=== PATIENT | female | born 1945 ===

== ENCOUNTER 2018-06-22 17:16 | Inpatient (IN) | payer MEDICARE, MEDICAID ==
[2018-06-22 17:16] VITALS: BMI 25.9
[2018-06-22] MEDS ORDERED: Piperacillin/Tazobact 3.375 gm 100 ML IVPB STA (18:38)
--- NOTE | 2018-06-22 18:42 | C.PDOC ---
History Of Present Illness 73 y/o female, with PMHx of diabetes, peripheral vascular disease, diabetic foot ulcer, and stroke, sent in by manager drilling for admission. Patient complains of wound on right heel and foot. Denies fever, chest pain, SOB, abdominal pain, weakness, numbness, or other physical injuries. Patient is from [facility]. Time Seen by Provider: 06/22/18 17:55 Chief Complaint (Nursing): Lower Extremity Problem/Injury History Per: Patient History/Exam Limitations: no limitations Onset/Duration Of Symptoms: Days Current Symptoms Are (Timing): Still Present Past Medical History Reviewed: Historical Data, Nursing Documentation, Vital Signs Vital Signs: Last Vital Signs Temp 98.5 F 06/22/18 17:19 Pulse 70 06/22/18 17:19 Resp 16 06/22/18 17:19 BP 156/67 H 06/22/18 17:19 Pulse Ox - Medical History PMH: Dementia, Diabetes, HTN, Hypercholesterolemia, Hyperlipidemia, Pneumonia Denies: Deep Vein Thrombosis, Chronic Kidney Disease Surgical History: Denies: Pacemaker - [facility] Procedures CENTRAL VENOUS CATHETER PLACEMENT WITH GUIDANCE (10/22/13) CONTRAST ARTERIOGRAM-LEG (10/22/13) DRAINAGE OF LEFT FOOT SKIN, EXTERNAL APPROACH, DIAGNOSTIC (10/17/17) DRESSING TECHNIQUES TREATMENT (10/19/17) GROOMING/PERSONAL HYGIENE TREATMENT (10/19/17) INSERTION OF INFUSION DEV INTO SUP VENA CAVA, PERC APPROACH (07/05/16) INSERTION OF INFUSION DEVICE INTO UPPER VEIN, PERC APPROACH (10/19/17) PACKED CELL TRANSFUSION (10/22/13) THERAPEUTIC EXERCISE TREATMENT OF MUSCULOSK WHOLE (10/19/17) ULTRASONOGRAPHY OF LEFT UPPER EXTREMITY VEINS, GUIDANCE (10/19/17) ULTRASONOGRAPHY OF SUPERIOR VENA CAVA, GUIDANCE (07/05/16) VASC SHUNT & BYPASS NEC (10/22/13) Family History: States: No Known Family Hx - Social History Hx Tobacco Use: No Hx Alcohol Use: No Hx Substance Use: No - Immunization History Hx Tetanus Toxoid Vaccination: No Hx Influenza Vaccination: Yes Hx Pneumococcal Vaccination: Yes Review Of Systems Except As Marked, All Systems Reviewed And Found Negative. Constitutional: Negative for: Fever, Chills Cardiovascular: Negative for: Chest Pain Respiratory: Negative for: Shortness of Breath Gastrointestinal: Negative for: Abdominal Pain Musculoskeletal: Positive for: Other (R heel wound) Neurological: Negative for: Weakness, Numbness Physical Exam - Physical Exam Appears: Non-toxic, No Acute Distress Skin: Warm, Dry, No Rash Head: Atraumatic, Normacephalic Eye(s): bilateral: Normal Inspection, PERRL, EOMI Oral Mucosa: Moist Neck: Normal ROM, Supple Chest: Symmetrical Cardiovascular: Rhythm Regular, Other (Normal S1,S2) Respiratory: No Rales, No Rhonchi, No Wheezing, Other (Normal inspiratory effort, lungs clear to auscultation) Gastrointestinal/Abdominal: Soft, No Tenderness, Other (obese) Extremity: Other (Right heel: Draining wound with surrounding cellulitis) Extremity: Left: Other (Healed wound on left heel), Bilateral: Normal ROM Pulses: Left Dorsalis Pedis: Decreased (Weak), Right Dorsalis Pedis: Decreased (Weak) Neurological/Psych: Normal Speech, Other (AAOx3) ED Course And Treatment - Laboratory Results Result Diagrams: 06/26/18 06:40 06/26/18 06:40 Medical Decision Making Medical Decision Making: Plan: --Wound culture --Blood culture --IV fluids --Zosyn --Bloodwork --Right foot x-ray Progress: --Podiatry resident was at bedside who re-dressed the patients wound. --Admit patient to PCP Dr. Mcdonnell 18:38 -- Per podiatry resident, Dr. Smart states she wants vancomycin, MRI, and vascular consult on the floor. 19:52 -- Message placed to DR. Mcdonnell's service. pending callback 20:17 -- Case discussed with Dr. Mcdonnell. Accepts the patient for admission. Disposition Counseled Patient/Family Regarding: Studies Performed, Diagnosis - Disposition Disposition: HOSPITALIZED Disposition Time: 20:17 Condition: STABLE - Clinical Impression Clinical Impression: Cellulitis and abscess of foot - Scribe Statement The provider has reviewed the documentation as recorded by the Michi Perez Provider Attestation: All medical record entries made by the Michi were at my direction and personally dictated by me. I have reviewed the chart and agree that the record accurately reflects my personal performance of the history, physical exam, medical decision making, and the department course for this patient. I have also personally directed, reviewed, and agree with the discharge instructions and disposition.
--- NOTE | 2018-06-22 18:58 | CP.PCM.CON ---
History of Present Illness - History of Present Illness History of Present Illness: Podiatry Consult note for attending Dr. Smart 73 y/o female seen and evaluated in the ED for right heel deep tissue injury. Patient is AAOx3 and in NAD with family present at bedside. Patient's family states patient is at [facility], was seen by Dr. Smart and sent to the ED for admission. At present, pt denies any F/C/N/V/CP/SOB. Admits to same pain to right heel. Patient's dressing was intact and removed in the ED. Patient's family states they were unaware as [facility] PMD: Dr. Miranda PMH: DM II, hypertension, peripheral vascular disease, legally blind, and CABG PSH: Left lower extremity vascular surgery, CABG Allergies: NKDA Social: Home-maker, 3 kids; denies tobacco, alcohol, or illicit drug use Review of Systems - Review of Systems All systems: reviewed and no additional remarkable complaints except Review of Systems: As per HPI Past Patient History - Infectious Disease Hx of Infectious Diseases: None - Past Medical History & Family History Past Medical History?: Yes - Past Social History Smoking Status: Never Smoked - CARDIAC Hx Hypercholesterolemia: Yes Hx Hypertension: Yes Hx Pacemaker: No - PULMONARY Hx Pneumonia: Yes - NEUROLOGICAL Hx Dementia: Yes - HEENT Hx HEENT Problems: No - RENAL Hx Chronic Kidney Disease: No - ENDOCRINE/METABOLIC Hx Diabetes Mellitus Type 2: Yes - HEMATOLOGICAL/ONCOLOGICAL Hx Cancer: No - INTEGUMENTARY Other/Comment: left heel ulcer - MUSCULOSKELETAL/RHEUMATOLOGICAL Hx Unsteady Gait: Yes - GASTROINTESTINAL Hx Gastrointestinal Disorders: No - PSYCHIATRIC Hx Substance Use: No - SURGICAL HISTORY Other/Comment: vascular surgery left leg 10/17 - ANESTHESIA Hx Anesthesia: Yes Hx Anesthesia Reactions: No Hx Malignant Hyperthermia: No Meds Allergies/Adverse Reactions: Allergies Allergy/AdvReac Type Severity Reaction Status Date / Time No Known Allergies Allergy Verified 06/22/18 17:21 - Medications Medications: Current Medications Piperacillin Sod/Tazobactam Sod (Zosyn 3.375 In Ns 100ml) 100 mls @ 200 mls/hr IVPB STAT STA; Protocol Stop: 06/22/18 19:07 Vancomycin HCl 1,000 mg/ (Sodium Chloride) 250 mls @ 166.6 mls/hr IVPB ONCE ONE; Protocol Stop: 06/22/18 20:07 Physical Exam - Constitutional Appears: Well, Non-toxic, No Acute Distress - Head Exam Head Exam: ATRAUMATIC, NORMOCEPHALIC - Extremities Exam Additional comments: Bilateral Lower Extremity Exam VASC: DP and PT faintly palpable to the left lower extremity and non-palpable to the right lower extremity, TG cool to cool R > L, +2 pitting edema noted to the dorsum of both feet NEURO: grossly intact bilaterally DERM: xerosis noted to bilateral feet Left- small area of pre-ulcerative lesion noted to the plantar aspect of the right heel, no drainage, no probe to bone, no tunneling, no malodor Right- 4 cm x 3 cm area of deep tissue injury noted to the left heel, significantly macerated skin overlying injury, no drainage noted, no probe to done at this time, per-wound erythema noted extending to the dorsal aspect of hte foot Cellultis marked with skin marker ORTHO: significant pain on palpation to the right heel - Neurological Exam Neurological exam: Alert, Oriented x3 - Psychiatric Exam Psychiatric exam: Normal Affect, Normal Mood Results - Vital Signs Recent Vital Signs: Last Vital Signs Temp 98.5 F 06/22/18 17:19 Pulse 70 06/22/18 17:19 Resp 16 06/22/18 17:19 BP 156/67 H 06/22/18 17:19 Pulse Ox Assessment & Plan - Assessment and Plan (Free Text) Assessment: 73 y/o female admitted for deep tissue injury to the right heel Plan: Patient seen and evaluated Plan discussed with Dr. Smart Afebrijia at this time Labs in process Wound culture of the Right heel ordered- will follow up Ordered X-rays and MRI of the right foot- will follow up Vascular consult placed for Dr. Mcdonald Bilateral Wounds cleansed with saline and dressed with xeroform, gauze and kerlix Multipodus boots ordered for patient Podiatry will continue to follow patient while in house - Date & Time Date: 06/22/18 Time: 19:10
[2018-06-22 18:59] LABS: BASO # 0.1 K/uL (0.0-0.2); EOS # 0.2 K/uL (0.0-0.7); EOS % 1.9 % (0.0-4.0); MEAN CORPUSCULAR HEMOGLOBIN 24.7 pg (27.0-31.0); MEAN CORPUSCULAR HGB CONC 32.1 g/dL (33.0-37.0); MEAN PLATELET VOLUME 8.5 fL (7.2-11.7); MONO # 1.1 K/uL (0.0-0.8); NEUT # 6.8 K/uL (1.8-7.0); NEUT % 66.1 % (50.0-75.0); NRBC % 0.1 % (0.0-2.0); RBC 4.47 Mil/uL (3.80-5.20); RED CELL DISTRIBUTION WIDTH 14.5 % (11.5-14.5); WHITE BLOOD COUNT 10.2 K/uL (4.8-10.8)
[2018-06-22 19:06] LABS: INR 1.2; PROTHROMBIN TIME 13.2 SECONDS (9.7-12.2)
[2018-06-22 19:12] LABS: ALBUMIN 3.7 g/dL (3.5-5.0); ALT/SGPT 13 U/L (9-52); AST/SGOT 14 U/L (14-36); BLOOD UREA NITROGEN 15 mg/dL (7-17); CALCIUM 8.9 mg/dl (8.6-10.4); GFR NON-AFRICAN AMERICAN 55
--- NOTE | 2018-06-22 19:29 | RAD ---
Right foot three views HISTORY: Heel ulcer. COMPARISON: None available. Findings: Soft tissue ulceration seen overlying the posterior calcaneus. No evidence of gross cortical irregularity at the level of the calcaneus to suggest an acute osteomyelitis. If there is concern for acute osteomyelitis, consider correlation with MRI. Diffuse osteopenia. Dorsal soft tissue swelling at the level of the midfoot Hallux valgus deformity. IMPRESSION: Soft tissue ulceration seen overlying the posterior calcaneus. No evidence of gross cortical irregularity at the level of the calcaneus to suggest an acute osteomyelitis. If there is concern for acute osteomyelitis, consider correlation with MRI. Diffuse osteopenia. Dorsal soft tissue swelling at the level of the midfoot Hallux valgus deformity.
[2018-06-22] MEDS ORDERED: Piperacillin/Tazobact 3.375 gm 100 ML IVPB ONE (19:40)
--- NOTE | 2018-06-22 20:57 | CP.PCM.CON ---
History of Present Illness - History of Present Illness History of Present Illness: VASCULAR SURGERY CONSULT NOTE FOR DR. ESCOBAR 73yo F with PMHx of DM, HTN, PVD s/p left fem peroneal bypass presents to the ED from [facility] as sent by podiatry for right heel wound. Pt denies having any pain, any problems with her feet or legs. Denies having any wounds/ulcers. Pt poor historian and most of information obtained from EMR. Podiatry evaluated pt in ED and requested vascular surgery consult. PMHx: DM, HTN, PVD, legally blind Surgeries: CABG, left fem peroneal bypass w/ reversed saphenous [place] [address] Escobar Allergies: none Review of Systems - Review of Systems All systems: reviewed and no additional remarkable complaints except (as per HPI) Past Patient History - Infectious Disease Hx of Infectious Diseases: None - Past Medical History & Family History Past Medical History?: Yes - Past Social History Smoking Status: Never Smoked - CARDIAC Hx Hypercholesterolemia: Yes Hx Hypertension: Yes Hx Pacemaker: No - PULMONARY Hx Pneumonia: Yes - NEUROLOGICAL Hx Dementia: Yes - HEENT Hx HEENT Problems: No - RENAL Hx Chronic Kidney Disease: No - ENDOCRINE/METABOLIC Hx Diabetes Mellitus Type 2: Yes - HEMATOLOGICAL/ONCOLOGICAL Hx Cancer: No - INTEGUMENTARY Other/Comment: left heel ulcer - MUSCULOSKELETAL/RHEUMATOLOGICAL Hx Unsteady Gait: Yes - GASTROINTESTINAL Hx Gastrointestinal Disorders: No - PSYCHIATRIC Hx Substance Use: No - SURGICAL HISTORY Other/Comment: vascular surgery left leg 10/17 - ANESTHESIA Hx Anesthesia: Yes Hx Anesthesia Reactions: No Hx Malignant Hyperthermia: No Meds Allergies/Adverse Reactions: Allergies Allergy/AdvReac Type Severity Reaction Status Date / Time No Known Allergies Allergy Verified 06/22/18 17:21 Physical Exam - Constitutional Appears: Non-toxic, No Acute Distress - Head Exam Head Exam: ATRAUMATIC, NORMAL INSPECTION - Respiratory Exam Respiratory Exam: NORMAL BREATHING PATTERN. absent: Respiratory Distress - Cardiovascular Exam Cardiovascular Exam: +S1, +S2 - GI/Abdominal Exam GI & Abdominal Exam: Soft. absent: Tenderness - Extremities Exam Additional comments: Bilateral feet with dressing just placed by podiatry with kerlix and xeroform. 4x3cm wound to right heel DP and PT not palpable but bilateral PT doppler signals present Bilateral feet warm but right warmer than left Well healed bypass scar on left leg - Neurological Exam Neurological exam: Alert - Psychiatric Exam Psychiatric exam: Normal Affect, Normal Mood - Skin Skin Exam: Dry, Warm Results - Vital Signs Recent Vital Signs: Last Vital Signs Temp 98.5 F 06/22/18 17:19 Pulse 70 06/22/18 17:19 Resp 16 06/22/18 17:19 BP 156/67 H 06/22/18 17:19 Pulse Ox - Labs Result Diagrams: 06/22/18 18:55 06/22/18 18:55 Labs: Laboratory Results - last 24 hr 06/22/18 06/22/18 06/22/18 18:55 18:55 18:55 WBC 10.2 D RBC 4.47 Hgb 11.0 Hct 34.4 MCV 77.0 L D MCH 24.7 L MCHC 32.1 L RDW 14.5 Plt Count 438 H D MPV 8.5 Neut % (Auto) 66.1 Lymph % (Auto) 20.0 [place] % (Auto) 11.0 H Eos % (Auto) 1.9 Baso % (Auto) 1.0 Neut # (Auto) 6.8 Lymph # (Auto) 2.0 [place] # (Auto) 1.1 H Eos # (Auto) 0.2 Baso # (Auto) 0.1 PT 13.2 H INR 1.2 APTT 36 H Sodium 139 Potassium 4.7 Chloride 105 Carbon Dioxide 27 Anion Gap 12 BUN 15 Creatinine 1.0 Est GFR ( Amer) > 60 Est GFR (Non-Af Amer) 55 Random Glucose 104 Calcium 8.9 Total Bilirubin 0.3 AST 14 D ALT 13 Alkaline Phosphatase 93 Total Protein 7.4 Albumin 3.7 Globulin 3.7 Albumin/Globulin Ratio 1.0 Assessment & Plan - Assessment and Plan (Free Text) Assessment: 73yo F with PMHx of DM, HTN, PVD s/p left fem peroneal bypass presents presents with right heel wound - Will FU MRI ordered by podiatry - PVR on Sunday - Discussed plan with Dr. Harry Erickson PGY-4
[2018-06-22] MEDS ORDERED: Glucagon Recombinant 1 mg Inj IM PRN (22:10)
[2018-06-22] MEDS ORDERED: Dextrose 50% SYRINGE Inj (50 ml) IV PRN (22:10)
[2018-06-22] MEDS: Oxycodone/Acetaminophen 5/325 mg Tab PO PRN (22:18)
[2018-06-23] MEDS: Piperacillin/Tazobact 3.375 GM in Sodium Chloride 100 ML IVPB SCH ×4 (00:09→17:38)
[2018-06-23] MEDS: Oxycodone/Acetaminophen 5/325 mg Tab PO PRN ×2 (05:24→16:57)
[2018-06-23] MEDS: (Novolin R) Insulin Human Regular 100 units/ml vial SC SCH ×3 (07:30→17:00)
[2018-06-23] MEDS: (Novolog) Insulin Aspart, Recombinant 100 u/ml 10 ml vial SC SCH ×4 (07:30→21:34)
[2018-06-23] MEDS: Vancomycin 1 gm/NS 200 ml 1 GM/200 ML BAG IVPB SCH ×2 (09:41→20:22)
[2018-06-23] MEDS: Enoxaparin 40 mg Syringe SC SCH (09:42)
[2018-06-23] MEDS: Nystatin 100,000 Units/gm Topical Pow(15 gm) TOP SCH ×3 (10:00→17:56)
--- NOTE | 2018-06-23 13:05 | CP.PCM.PN ---
Subjective - Date & Time of Evaluation Date of Evaluation: 06/23/18 Time of Evaluation: 13:02 - Subjective Subjective: Podiatry progress note for Dr. Smart 73 yo female seen and evaluated at bedside for right heel DTI. Seen resting comfortably. Denies any acute events overnight. Reports mild pedal pain b/l and moderate the ulceration site. Denies N/V/F/C/SOB/CP today. Has no other complaints. Objective - Vital Signs/Intake and Output Vital Signs (last 24 hours): Temp Pulse Resp BP Pulse Ox 98.3 F 61 20 109/59 L 96 06/23/18 07:47 06/23/18 07:47 06/23/18 07:47 06/23/18 07:47 06/23/18 07:47 Intake and Output: 06/23/18 06/23/18 06:59 18:59 Intake Total 320 Balance 320 - Medications Medications: Current Medications Amlodipine Besylate (Norvasc) 10 mg PO DAILY [facility] Last Admin: 06/23/18 09:42 Dose: 10 mg Apixaban (Eliquis) 2.5 mg PO BID [facility] Last Admin: 06/23/18 09:42 Dose: 2.5 mg Clopidogrel Bisulfate (Plavix) 75 mg PO DAILY [facility] Last Admin: 06/23/18 09:42 Dose: 75 mg Dextrose (Dextrose 50% Inj) 0 ml IV STAT PRN; Protocol PRN Reason: Hypoglycemia Protocol Dextrose (Glutose 15) 0 gm PO ONCE PRN; Protocol PRN Reason: Hypoglycemia Protocol Donepezil HCl (Aricept) 5 mg PO DAILY [facility] Last Admin: 06/23/18 09:42 Dose: 5 mg Enoxaparin Sodium (Lovenox) 40 mg SC DAILY [facility] Last Admin: 06/23/18 09:42 Dose: 40 mg Gabapentin (Neurontin) 400 mg PO BID [facility] Last Admin: 06/23/18 09:46 Dose: 400 mg Glucagon (Glucagen Diagnostic Kit) 0 mg IM STAT PRN; Protocol PRN Reason: Hypoglycemia Protocol Vancomycin/Sodium Chloride (Vancomycin 1 Gm/Ns 200 Ml) 1 gm in 200 mls @ 166.6 mls/hr IVPB Q12H [facility]; Protocol Stop: 06/28/18 09:01 Last Admin: 06/23/18 09:41 Dose: 166.6 mls/hr Piperacillin Sod/Tazobactam (Sod 3.375 gm/ Sodium Chloride) 100 mls @ 200 mls/hr IVPB Q6H [facility]; Protocol Last Admin: 06/23/18 12:10 Dose: 200 mls/hr Dextrose (Dextrose 5% In Water 1000 Ml) 1,000 mls @ 0 mls/hr IV .Q0M PRN; Protocol PRN Reason: Hypoglycemia Protocol Influenza Virus Vaccine (Fluzone Quad [id number]) 60 mcg IM .ONCE ONE Stop: 06/24/18 10:01 Insulin Aspart (Novolog) 0 unit SC ACHS [facility]; Protocol Last Admin: 06/23/18 12:25 Dose: 1 units Insulin Detemir (Levemir) 15 unit SC QPM [facility] Insulin Human Regular (Novolin R) 4 unit SC AC [facility] Last Admin: 06/23/18 11:30 Dose: 4 units Losartan Potassium (Cozaar) 100 mg PO DAILY [facility] Last Admin: 06/23/18 09:42 Dose: 100 mg Nystatin (Nystop Topical Powder) 2 gm TOP TID [facility] Last Admin: 06/23/18 10:00 Dose: 1 applic Oxycodone/Acetaminophen (Percocet 5/325 Mg Tab) 1 tab PO Q4H PRN PRN Reason: pain Stop: 06/25/18 22:00 Last Admin: 06/23/18 05:24 Dose: 1 tab Pneumococcal Polyvalent Vaccine (Pneumovax 23 Vaccine) 0.5 ml IM .ONCE ONE Stop: 06/24/18 10:01 - Labs Labs: 06/22/18 18:55 06/22/18 18:55 PT 13.2 SECONDS (9.7-12.2) H 06/22/18 18:55 INR 1.2 06/22/18 18:55 APTT 36 SECONDS (21-34) H 06/22/18 18:55 - Constitutional Appears: Well, Non-toxic, No Acute Distress - Head Exam Head Exam: ATRAUMATIC, NORMOCEPHALIC - Extremities Exam Additional comments: VASC: DP and PT faintly palpable to the left lower extremity and non-palpable to the right lower extremity, TG cool to cool R > L, +2 pitting edema noted to the dorsum of both feet NEURO: grossly intact bilaterally DERM: xerosis noted to bilateral feet Left- small area of pre-ulcerative lesion noted to the plantar aspect of the right heel, no drainage, no probe to bone, no tunneling, no malodor Right- 4 cm x 3 cm area of deep tissue injury noted to the left heel, significantly macerated skin overlying injury, no drainage noted, no probe to done at this time, per-wound erythema noted extending to the dorsal aspect of hte foot Cellultis marked with skin marker ORTHO: significant pain on palpation to the right heel - Neurological Exam Neurological Exam: Alert, Awake, Oriented x3 - Psychiatric Exam Psychiatric exam: Normal Affect, Normal Mood Assessment and Plan - Assessment and Plan (Free Text) Assessment: 73 y/o female admitted for deep tissue injury to the right heel Plan: Patient seen and evaluated Plan discussed with Dr. Smart Afebrile, absent leukocytosis Wound culture of the Right heel ordered- staph aureus preliminary MRI pending X-ray right foot - no evidence of gross cortical irregularity; diffuse osteopenia Vascular consult placed for Dr. Mcdonald Bilateral Wounds cleansed with saline and dressed with xeroform, gauze and kerlix Podiatry will continue to follow patient while in house
[2018-06-23] MEDS: Insulin Detemir 100 units/ml Vial (Levemir) SC SCH (18:16)
[2018-06-24] MEDS: Piperacillin/Tazobact 3.375 GM in Sodium Chloride 100 ML IVPB SCH ×4 (00:08→17:22)
[2018-06-24] MEDS: Oxycodone/Acetaminophen 5/325 mg Tab PO PRN ×3 (00:24→16:35)
[2018-06-24 05:45] LABS: BASO # 0.1 K/uL (0.0-0.2); BASO % 0.7 % (0.0-2.0); EOS # 0.3 K/uL (0.0-0.7); HEMOGLOBIN 10.6 g/dL (11.0-16.0); LYMPH # 1.6 K/uL (1.0-4.3); LYMPH % 16.2 % (20.0-40.0); MEAN CELL VOLUME 76.7 fL (81.0-99.0); MEAN CORPUSCULAR HEMOGLOBIN 24.6 pg (27.0-31.0); MEAN PLATELET VOLUME 7.8 fL (7.2-11.7); MONO # 1.5 K/uL (0.0-0.8); MONO % 14.4 % (0.0-10.0); NEUT # 6.7 K/uL (1.8-7.0); NEUT % 65.7 % (50.0-75.0); RBC 4.31 Mil/uL (3.80-5.20); RED CELL DISTRIBUTION WIDTH 14.7 % (11.5-14.5); WHITE BLOOD COUNT 10.1 K/uL (4.8-10.8)
[2018-06-24] MEDS: (Novolog) Insulin Aspart, Recombinant 100 u/ml 10 ml vial SC SCH ×4 (08:19→21:39)
[2018-06-24] MEDS: (Novolin R) Insulin Human Regular 100 units/ml vial SC SCH ×3 (08:19→17:20)
[2018-06-24] MEDS: Vancomycin 1 gm/NS 200 ml 1 GM/200 ML BAG IVPB SCH ×3 (09:57→21:31)
[2018-06-24] MEDS ORDERED: Pneumococcal 23-Valent Vaccine IM ONE ×2 (10:00)
[2018-06-24] MEDS ORDERED: Influenza Vaccine 60 MCG/0.5 ML SYR (3 yr & up) IM ONE (10:00)
[2018-06-24] MEDS: Enoxaparin 40 mg Syringe SC SCH (10:48)
[2018-06-24] MEDS: Nystatin 100,000 Units/gm Topical Pow(15 gm) TOP SCH ×3 (10:48→17:18)
--- NOTE | 2018-06-24 11:11 | CP.PCM.PN ---
Subjective - Date & Time of Evaluation Date of Evaluation: 06/24/18 Time of Evaluation: 11:08 - Subjective Subjective: Podiatry Progress Note for Dr. Smart 73F seen for infected right foot heel wound and left heel callus. Patient is AAO x 3 at time of visit. States that she does not feel well with fever and chills. Also states that she continues to have pain in her right foot. Denies any further pedal complaints at this time. Denies any recent N/V/CP/SOB/D. Multipodus boots are seen to be in place at this time. Objective - Vital Signs/Intake and Output Vital Signs (last 24 hours): Temp Pulse Resp BP Pulse Ox 99.2 F 71 20 117/66 95 06/24/18 07:55 06/24/18 07:55 06/24/18 07:55 06/24/18 07:55 06/24/18 07:55 Intake and Output: 06/24/18 06/24/18 06:59 18:59 Intake Total 1140 Balance 1140 - Medications Medications: Current Medications Amlodipine Besylate (Norvasc) 10 mg PO DAILY [facility] Last Admin: 06/24/18 10:48 Dose: Not Given Apixaban (Eliquis) 2.5 mg PO BID [facility] Last Admin: 06/24/18 10:48 Dose: Not Given Clopidogrel Bisulfate (Plavix) 75 mg PO DAILY [facility] Last Admin: 06/24/18 10:48 Dose: Not Given Dextrose (Dextrose 50% Inj) 0 ml IV STAT PRN; Protocol PRN Reason: Hypoglycemia Protocol Dextrose (Glutose 15) 0 gm PO ONCE PRN; Protocol PRN Reason: Hypoglycemia Protocol Donepezil HCl (Aricept) 5 mg PO DAILY [facility] Last Admin: 06/24/18 10:48 Dose: Not Given Enoxaparin Sodium (Lovenox) 40 mg SC DAILY [facility] Last Admin: 06/24/18 10:48 Dose: Not Given Gabapentin (Neurontin) 400 mg PO BID [facility] Last Admin: 06/24/18 10:48 Dose: Not Given Glucagon (Glucagen Diagnostic Kit) 0 mg IM STAT PRN; Protocol PRN Reason: Hypoglycemia Protocol Vancomycin/Sodium Chloride (Vancomycin 1 Gm/Ns 200 Ml) 1 gm in 200 mls @ 166.6 mls/hr IVPB Q12H [facility]; Protocol Stop: 06/28/18 09:01 Last Admin: 06/24/18 09:57 Dose: Not Given Piperacillin Sod/Tazobactam (Sod 3.375 gm/ Sodium Chloride) 100 mls @ 200 mls/hr IVPB Q6H [facility]; Protocol Last Admin: 06/24/18 05:02 Dose: 200 mls/hr Dextrose (Dextrose 5% In Water 1000 Ml) 1,000 mls @ 0 mls/hr IV .Q0M PRN; Protocol PRN Reason: Hypoglycemia Protocol Insulin Aspart (Novolog) 0 unit SC ACHS [facility]; Protocol Last Admin: 06/24/18 08:19 Dose: Not Given Insulin Detemir (Levemir) 15 unit SC QPM [facility] Last Admin: 06/23/18 18:16 Dose: Not Given Insulin Human Regular (Novolin R) 4 unit SC AC [facility] Last Admin: 06/24/18 08:19 Dose: Not Given Losartan Potassium (Cozaar) 100 mg PO DAILY [facility] Last Admin: 06/24/18 10:48 Dose: Not Given Nystatin (Nystop Topical Powder) 2 gm TOP TID [facility] Last Admin: 06/24/18 10:48 Dose: Not Given Oxycodone/Acetaminophen (Percocet 5/325 Mg Tab) 1 tab PO Q4H PRN PRN Reason: pain Stop: 06/25/18 22:00 Last Admin: 06/24/18 07:11 Dose: 1 tab - Labs Labs: 06/24/18 05:39 06/22/18 18:55 PT 13.2 SECONDS (9.7-12.2) H 06/22/18 18:55 INR 1.2 06/22/18 18:55 APTT 36 SECONDS (21-34) H 06/22/18 18:55 - Constitutional Appears: Well, Non-toxic, No Acute Distress - Extremities Exam Additional comments: VASC: DP and PT faintly palpable to the left lower extremity and non-palpable to the right lower extremity, TG cool to cool R > L, with minimal edema noted to dorsum of both feet NEURO: Epicritic and protective sensation grossly intact b/l DERM: xerosis noted to bilateral feet Left- small area of pre-ulcerative lesion noted to the plantar aspect of the right heel, no drainage, no probe to bone, no tunneling, no malodor Right- 4 cm x 3 cm blister noted to posterior/medial heel. Blister was deroofed and found to have roughly 1-2 cc of foul smelling, brownish-white purulence present. Underlying skin is granular with no probe to bone, tracking, tunneling or undermining noted. Cellulitic changes to right leg noted to be greatly improved at this time ORTHO: significant pain on palpation to the right heel - Neurological Exam Neurological Exam: Alert, Awake, Oriented x3 - Psychiatric Exam Psychiatric exam: Normal Affect, Normal Mood Assessment and Plan - Assessment and Plan (Free Text) Assessment: 73F seen for infected right foot heel wound and left heel callus/eschar Plan: Patient seen and evaluated with Dr. Smart Overnight temp: 101.6 Absent leukocytosis Wound cx R foot: Staph Aureus Infectious disease consult placed, recs appreciated Continue IV abx R foot xray:Soft tissue ulceration seen overlying the posterior calcaneus. No evidence of gross cortical irregularity at the level of the calcaneus to suggest an acute osteomyelitis. If there is concern for acute osteomyelitis, consider correlation with MRI. RLE MRI: Read pending F/u vascular studies Wound dressed with DSD No plan for surgical intervention at this time Podiatry will continue to follow while patient in house
--- NOTE | 2018-06-24 12:24 | CP.PCM.CON ---
History of Present Illness - History of Present Illness History of Present Illness: 73yo F with PMHx of DM, HTN, PVD s/p left fem peroneal bypass presents to the ED from [facility] as sent by podiatry for right heel wound. PMHx: DM, HTN, PVD, legally blind Surgeries: CABG, left fem peroneal bypass w/ reversed saphenous [place] [address] Mcdonald Allergies: none Review of Systems - Review of Systems Systems not reviewed;Unavailable: Altered Mental Status All systems: reviewed and no additional remarkable complaints except - Constitutional Constitutional: As Per HPI - EENT Eyes: absent: As Per HPI, Blind Spots, Blurred Vision, Change in Vision, Decreased Night Vision, Diplopia, Discharge, Dry Eye, Exophthalmos, Floaters, Irritation, Itchy Eyes, Loss of Peripheral Vision, Pain, Photophobia, Requires Corrective Lenses, Sees Flashes, Spots in Vision, Tunnel Vision, Other Visual Disturbances, Loss of Vision, Other Ears: absent: As Per HPI, Decreased Hearing, Ear Discharge, Ear Pain, Tinnitus, Abnormal Hearing, Disequilibrium, Dizziness, Other Nose/Mouth/Throat: absent: As Per HPI, Epistaxis, Nasal Congestion, Nasal Discharge, Nasal Obstruction, Nasal Trauma, Nose Pain, Post Nasal Drip, Sinus Pain, Sinus Pressure, Bleeding Gums, Change in Voice, Dental Pain, Dry Mouth, Dysphagia, Halitosis, Hoarsness, Lip Swelling, Mouth Lesions, Mouth Pain, Odynophagia, Sore Throat, Throat Swelling, Tongue Swelling, Facial Pain, Neck Pain, Neck Mass, Other - Breasts Breasts: absent: As Per HPI, Change in Shape, Mass, Pain, Nipple Discharge, Nipple Inversion, Skin Changes, Swelling, Other - Cardiovascular Cardiovascular: absent: As Per HPI, Acrocyanosis, Chest Pain, Chest Pain at Rest, Chest Pain with Activity, Claudication, Diaphoresis, Dyspnea, Dyspnea on Exertion, Edema, Irregular Heart Rhythm, Pain Radiating to Arm/Neck/Jaw, Leg Edema, Leg Ulcers, Lightheadedness, Orthopnea, Palpitations, Paroxysmal Nocturnal Dyspnea, Pedal Edema, Radiating Pain, Rapid Heart Rate, Slow Heart Rate, Syncope, Other - Respiratory Respiratory: absent: As Per HPI, Cough, Dyspnea, Hemoptysis, Dyspnea on Exertion, Wheezing, Snoring, Stridor, Pain on Inspiration, Chest Congestion, Excessive Mucous Production, Change in Mucous Color, Pain with Coughing, Other - Gastrointestinal Gastrointestinal: absent: As Per HPI, Abdominal Pain, Belching, Bloating, Change in Bowel Habits, Change in Stool Character, Coffee Ground Emesis, Constipation, Cramping, Diarrhea, Dyspepsia, Dysphagia, Early Satiety, Excessive Flatus, Fecal Incontinence, Heartburn, Hematemesis, Hematochezia, Loose Stools, Melena, Nausea, Odynophagia, Temesmus, Vomiting, Other - Genitourinary Genitourinary: absent: As Per HPI, Change in Urinary Stream, Difficulty Urinating, Dysuria, Flank Pain, Hematuria, Pyuria, Nocturia, Urinary Incontinence, Urinary Frequency, Urinary Hesitance, Urinary Urgency, Voiding Freq/Small Amts, Freq UTI, Hx Renal/Bladder Calculi, Hx /Renal Surgery, Bladder Distension, Other - Reproductive: Female Reproductive:Female: absent: As Per HPI, Amenorrhea, Amenorrhea/ Control, Currently Menstual, Cycle <21 Days, Cycle >35 Days, Cycle Variable, Menses 1-7 Days, Menses >/= 8 Days, Menses Variable, Cycle > 4 Weeks Between, No Menses for 6 Months, Heavy Menses, Light Menses, Normal Menses, Spotting Between Cycles, S/P Hysterectomy, Menopausal, Post Menopausal, Premenarche, Abnormal Vaginal Bleeding, Dysmenorrhea, Dyspareunia, Genital Lesions, Genital Pruritis, Pelvic Pain, Prolapse Symptoms, Sexual Dysfunction, Vaginal Discharge, Vaginal Dryness, Vaginal Odor, Vaginal Pruritis, Other - Menstruation Menstruation: absent: As Per HPI, Amenorrhea, Amenorrhea/ Control, Currently Menstual, Cycle <21 Days, Cycle >35 Days, Cycle Variable, Menses 1-7 Days, Menses >/= 8 Days, Menses Variable, Cycle > 4 Weeks Between, No Menses for 6 Months, Heavy Menses, Light Menses, Normal Menses, Spotting Between Cycles, S/P Hysterectomy, Menopausal, Post Menopausal, Premenarche, Abnormal Vaginal Bleeding, Dysmenorrhea, Other - Musculoskeletal Musculoskeletal: As Per HPI - Integumentary Integumentary: As Per HPI, Skin Pain, Wounds - Neurological Neurological: As Per HPI - Psychiatric Psychiatric: absent: As Per HPI, Abnormal Sleep Pattern, Anhedonia, Anxiety, Auditory Hallucinations, Behavioral Changes, Change in Appetite, Change in Libido, Confusion, Depression, Difficulty Concentrating, Hallucinations, Homicidal Ideation, Hopelessness, Irritability, Memory Loss, Mood Swings, Panic Attacks, Paranoia, Suicidal Ideation, Visual Hallucinations, Tactile Hallucinations, Other - Endocrine Endocrine: absent: As Per HPI, Change in Body Appearance, Change in Libido, Cold Intolorance, Deepening of Voice, Excessive Sweating, Fatigue, Flushing, Heat Intolorance, Increase in Ring/Shoe/Hat Size, Palpitations, Polydipsia, Polyphagia, Polyuria, Other - Hematologic/Lymphatic Hematologic: absent: As Per HPI, Easy Bleeding, Easy Bruising, Lymphadenopathy, Other Past Patient History - Infectious Disease Hx of Infectious Diseases: None - Past Medical History & Family History Past Medical History?: Yes - Past Social History Smoking Status: Never Smoked - CARDIAC Hx Hypercholesterolemia: Yes Hx Hypertension: Yes Hx Pacemaker: No - PULMONARY Hx Pneumonia: Yes - NEUROLOGICAL Hx Dementia: Yes - HEENT Hx HEENT Problems: No - RENAL Hx Chronic Kidney Disease: No - ENDOCRINE/METABOLIC Hx Diabetes Mellitus Type 2: Yes - HEMATOLOGICAL/ONCOLOGICAL Hx Cancer: No - INTEGUMENTARY Other/Comment: left heel ulcer - MUSCULOSKELETAL/RHEUMATOLOGICAL Hx Falls: No - GASTROINTESTINAL Hx Gastrointestinal Disorders: No - GENITOURINARY/GYNECOLOGICAL Hx Genitourinary Disorders: No - PSYCHIATRIC Hx Substance Use: No - SURGICAL HISTORY Other/Comment: vascular surgery left leg 10/17 - ANESTHESIA Hx Anesthesia: Yes Hx Anesthesia Reactions: No Hx Malignant Hyperthermia: No Meds Allergies/Adverse Reactions: Allergies Allergy/AdvReac Type Severity Reaction Status Date / Time No Known Allergies Allergy Verified 06/22/18 17:21 - Medications Medications: Current Medications Amlodipine Besylate (Norvasc) 10 mg PO DAILY [facility] Last Admin: 06/24/18 10:48 Dose: Not Given Apixaban (Eliquis) 2.5 mg PO BID [facility] Last Admin: 06/24/18 10:48 Dose: Not Given Clopidogrel Bisulfate (Plavix) 75 mg PO DAILY [facility] Last Admin: 06/24/18 10:48 Dose: Not Given Dextrose (Dextrose 50% Inj) 0 ml IV STAT PRN; Protocol PRN Reason: Hypoglycemia Protocol Dextrose (Glutose 15) 0 gm PO ONCE PRN; Protocol PRN Reason: Hypoglycemia Protocol Donepezil HCl (Aricept) 5 mg PO DAILY [facility] Last Admin: 06/24/18 10:48 Dose: Not Given Enoxaparin Sodium (Lovenox) 40 mg SC DAILY [facility] Last Admin: 06/24/18 10:48 Dose: Not Given Gabapentin (Neurontin) 400 mg PO BID [facility] Last Admin: 06/24/18 10:48 Dose: Not Given Glucagon (Glucagen Diagnostic Kit) 0 mg IM STAT PRN; Protocol PRN Reason: Hypoglycemia Protocol Vancomycin/Sodium Chloride (Vancomycin 1 Gm/Ns 200 Ml) 1 gm in 200 mls @ 166.6 mls/hr IVPB Q12H [facility]; Protocol Stop: 06/28/18 09:01 Last Admin: 06/24/18 12:01 Dose: 166.6 mls/hr Piperacillin Sod/Tazobactam (Sod 3.375 gm/ Sodium Chloride) 100 mls @ 200 mls/hr IVPB Q6H [facility]; Protocol Last Admin: 06/24/18 05:02 Dose: 200 mls/hr Dextrose (Dextrose 5% In Water 1000 Ml) 1,000 mls @ 0 mls/hr IV .Q0M PRN; Protocol PRN Reason: Hypoglycemia Protocol Insulin Aspart (Novolog) 0 unit SC ACHS [facility]; Protocol Last Admin: 06/24/18 08:19 Dose: Not Given Insulin Detemir (Levemir) 15 unit SC QPM [facility] Last Admin: 06/23/18 18:16 Dose: Not Given Insulin Human Regular (Novolin R) 4 unit SC AC [facility] Last Admin: 06/24/18 08:19 Dose: Not Given Losartan Potassium (Cozaar) 100 mg PO DAILY [facility] Last Admin: 06/24/18 10:48 Dose: Not Given Nystatin (Nystop Topical Powder) 2 gm TOP TID [facility] Last Admin: 06/24/18 10:48 Dose: Not Given Oxycodone/Acetaminophen (Percocet 5/325 Mg Tab) 1 tab PO Q4H PRN PRN Reason: pain Stop: 06/25/18 22:00 Last Admin: 06/24/18 07:11 Dose: 1 tab Physical Exam - Constitutional Appears: No Acute Distress, Confused, Chronically Ill - Head Exam Head Exam: ATRAUMATIC, NORMAL INSPECTION, NORMOCEPHALIC - Eye Exam Eye Exam: EOMI, PERRL. absent: Scleral icterus - ENT Exam ENT Exam: Mucous Membranes Dry, Normal External Ear Exam - Neck Exam Neck exam: Negative for: Lymphadenopathy - Respiratory Exam Respiratory Exam: Decreased Breath Sounds, Clear to Auscultation Bilateral - Cardiovascular Exam Cardiovascular Exam: REGULAR RHYTHM, +S1, +S2 - GI/Abdominal Exam GI & Abdominal Exam: Diminished Bowel Sounds, Soft. absent: Tenderness - Rectal Exam Rectal Exam: Deferred - Exam Exam: NORMAL INSPECTION - Extremities Exam Extremities exam: Positive for: pedal edema, tenderness, pedal pulses present. Negative for: calf tenderness, normal inspection - Back Exam Back exam: absent: CVA tenderness (L), CVA tenderness (R) - Neurological Exam Neurological exam: Alert, Altered, CN II-XII Intact - Psychiatric Exam Psychiatric exam: Depressed - Skin Skin Exam: Rash Results - Vital Signs Recent Vital Signs: Last Vital Signs Temp 99.2 F 06/24/18 07:55 Pulse 71 06/24/18 07:55 Resp 20 06/24/18 07:55 BP 117/66 06/24/18 07:55 Pulse Ox 95 06/24/18 07:55 - Labs Result Diagrams: 06/28/18 07:15 06/28/18 07:15 Labs: Laboratory Results - last 24 hr 06/23/18 06/23/18 06/24/18 16:03 21:12 05:39 WBC 10.1 RBC 4.31 Hgb 10.6 L Hct 33.1 L MCV 76.7 L MCH 24.6 L MCHC 32.0 L RDW 14.7 H Plt Count 425 H MPV 7.8 Neut % (Auto) 65.7 Lymph % (Auto) 16.2 L [place] % (Auto) 14.4 H Eos % (Auto) 3.0 Baso % (Auto) 0.7 Neut # (Auto) 6.7 Lymph # (Auto) 1.6 [place] # (Auto) 1.5 H Eos # (Auto) 0.3 Baso # (Auto) 0.1 POC Glucose (mg/dL) 140 H 151 H 06/24/18 06/24/18 08:03 12:01 WBC RBC Hgb Hct MCV MCH MCHC RDW Plt Count MPV Neut % (Auto) Lymph % (Auto) [place] % (Auto) Eos % (Auto) Baso % (Auto) Neut # (Auto) Lymph # (Auto) [place] # (Auto) Eos # (Auto) Baso # (Auto) POC Glucose (mg/dL) 196 H 220 H Assessment & Plan (1) Cellulitis and abscess of foot Status: Acute Priority: High (2) Osteomyelitis of ankle or foot Status: Acute (3) Peripheral arterial disease Status: Acute Priority: High (4) Stroke Status: Acute Priority: High (5) CAD (coronary artery disease) Status: Chronic (6) Diabetic foot ulcer Status: Chronic (7) HTN (hypertension) Status: Chronic - Assessment and Plan (Free Text) Assessment: 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
--- NOTE | 2018-06-24 13:38 | CP.PCM.PN ---
Subjective - Date & Time of Evaluation Date of Evaluation: 06/24/18 Time of Evaluation: 13:30 - Subjective Subjective: PGY3 note for Dr. Love Service patient seen and examined at bedside this AM; patient has no complaints this morning; denies all symptoms Objective - Vital Signs/Intake and Output Vital Signs (last 24 hours): Temp Pulse Resp BP Pulse Ox 99.2 F 71 20 117/66 95 06/24/18 07:55 06/24/18 07:55 06/24/18 07:55 06/24/18 07:55 06/24/18 07:55 Intake and Output: 06/24/18 06/24/18 06:59 18:59 Intake Total 1140 Balance 1140 - Medications Medications: Current Medications Amlodipine Besylate (Norvasc) 10 mg PO DAILY [facility] Last Admin: 06/24/18 10:48 Dose: Not Given Apixaban (Eliquis) 2.5 mg PO BID [facility] Last Admin: 06/24/18 10:48 Dose: Not Given Clopidogrel Bisulfate (Plavix) 75 mg PO DAILY [facility] Last Admin: 06/24/18 10:48 Dose: Not Given Dextrose (Dextrose 50% Inj) 0 ml IV STAT PRN; Protocol PRN Reason: Hypoglycemia Protocol Dextrose (Glutose 15) 0 gm PO ONCE PRN; Protocol PRN Reason: Hypoglycemia Protocol Donepezil HCl (Aricept) 5 mg PO DAILY [facility] Last Admin: 06/24/18 10:48 Dose: Not Given Enoxaparin Sodium (Lovenox) 40 mg SC DAILY [facility] Last Admin: 06/24/18 10:48 Dose: Not Given Gabapentin (Neurontin) 400 mg PO BID [facility] Last Admin: 06/24/18 10:48 Dose: Not Given Glucagon (Glucagen Diagnostic Kit) 0 mg IM STAT PRN; Protocol PRN Reason: Hypoglycemia Protocol Vancomycin/Sodium Chloride (Vancomycin 1 Gm/Ns 200 Ml) 1 gm in 200 mls @ 166.6 mls/hr IVPB Q12H [facility]; Protocol Stop: 06/28/18 09:01 Last Admin: 06/24/18 12:01 Dose: 166.6 mls/hr Piperacillin Sod/Tazobactam (Sod 3.375 gm/ Sodium Chloride) 100 mls @ 200 mls/hr IVPB Q6H [facility]; Protocol Last Admin: 06/24/18 12:26 Dose: 200 mls/hr Dextrose (Dextrose 5% In Water 1000 Ml) 1,000 mls @ 0 mls/hr IV .Q0M PRN; Protocol PRN Reason: Hypoglycemia Protocol Insulin Aspart (Novolog) 0 unit SC ACHS [facility]; Protocol Last Admin: 06/24/18 12:31 Dose: 2 units Insulin Detemir (Levemir) 15 unit SC QPM [facility] Last Admin: 06/23/18 18:16 Dose: Not Given Insulin Human Regular (Novolin R) 4 unit SC AC [facility] Last Admin: 06/24/18 12:31 Dose: 4 units Losartan Potassium (Cozaar) 100 mg PO DAILY [facility] Last Admin: 06/24/18 10:48 Dose: Not Given Nystatin (Nystop Topical Powder) 2 gm TOP TID [facility] Last Admin: 06/24/18 10:48 Dose: Not Given Oxycodone/Acetaminophen (Percocet 5/325 Mg Tab) 1 tab PO Q4H PRN PRN Reason: pain Stop: 06/25/18 22:00 Last Admin: 06/24/18 07:11 Dose: 1 tab - Labs Labs: 06/24/18 05:39 06/22/18 18:55 PT 13.2 SECONDS (9.7-12.2) H 06/22/18 18:55 INR 1.2 06/22/18 18:55 APTT 36 SECONDS (21-34) H 06/22/18 18:55 - Constitutional Appears: Well, Non-toxic - Head Exam Head Exam: ATRAUMATIC, NORMAL INSPECTION - Eye Exam Eye Exam: EOMI, Normal appearance, PERRL - ENT Exam ENT Exam: Mucous Membranes Moist - Neck Exam Neck Exam: Full ROM - Respiratory Exam Respiratory Exam: Clear to Ausculation Bilateral, NORMAL BREATHING PATTERN. absent: Rales, Rhonchi, Wheezes - Cardiovascular Exam Cardiovascular Exam: REGULAR RHYTHM, +S1, +S2 - GI/Abdominal Exam GI & Abdominal Exam: Soft, Normal Bowel Sounds. absent: Tenderness - Extremities Exam Extremities Exam: Full ROM. absent: Calf Tenderness Additional comments: wound on the left ankle that is recently covered with new bandages, feet are warm - Back Exam Back Exam: NORMAL INSPECTION. absent: CVA tenderness (L), CVA tenderness (R) - Neurological Exam Neurological Exam: Alert, Awake Assessment and Plan - Assessment and Plan (Free Text) Assessment: 73yo F admitted for non healing R heel wound with possible osteomyelitis R Heel Wound w/ possible osteo -f/u MRI w/ contrast for length of tx w/ abx -f/u podiatry recs -zosyn 3.375 Q6H -vanco 1g Q12H -f/u blood cultures; negative to date Hx of HTN -c/w amlodipine Hx of PAD -c/w eliquis 2.5mg BID -plavix 75mg daily Hx of Dementia -c/w donepizil 5mg daily Hx of neuropathy -c/w Gabapentin BID 400mg Proph -lovenox 40mg sc -GI prophylaxis not indicated PT OT eval Case discussed and seen with Dr. Ruben Barrera PGY3
--- NOTE | 2018-06-24 14:07 | MRI ---
MRI right hindfoot HISTORY: Ulcer. COMPARISON: X-ray dated 06/22/2018 TECHNIQUE: Multi-echo multiplanar sequences were through the right hindfoot without the use of intravenous contrast. FINDINGS: Prominent soft tissue ulceration/defect seen within the medial subcutaneous soft tissues at the level of the posterior heel. Reticulation and edema within the adjacent soft tissues. At that level, within the medial cortex of the posterior calcaneus, there is some mild increased STIR signal without gross corresponding decreased T1 signal as demonstrated on series 5, images 16-18 as well as series 7 images 5-8. These changes likely do not represent a gross acute osteomyelitis; however, an early acute and or developing acute osteomyelitis cannot entirely be excluded. Continued interval follow-up and or correlation with three-phase bone scan may be helpful if indicated Anterior extensor tendons are preserved. Medial flexor tendons are preserved. Peroneal tendons are preserved. Anterior and posterior tibiofibular ligaments are preserved. Anterior and posterior talofibular ligaments are preserved. Achilles tendon is preserved. Mild thickening of the plantar fascia measuring up to 4.4 millimeters. Sinus tarsi is preserved. No significant ankle joint effusion. Narrowing of the tibiotalar joint space. Mild subchondral cyst formation seen at the distal fibula. Mild subchondral cyst formation seen within the medial aspect of talus. Mild increased signal seen within the deep fibers of deltoid ligament suggestive for low grade sprain. Prominence of the middle subtalar joint space. Impression: Prominent soft tissue ulceration/defect seen within the medial subcutaneous soft tissues at the level of the posterior heel. Reticulation and edema within the adjacent soft tissues. At that level, within the medial cortex of the posterior calcaneus, there is some mild increased STIR signal without gross corresponding decreased T1 signal as demonstrated on series 5, images 16-18 as well as series 7 images 5-8. These changes likely do not represent a gross acute osteomyelitis; however, an early acute and or developing acute osteomyelitis cannot entirely be excluded. Continued interval follow-up and or correlation with three-phase bone scan may be helpful if indicated.
[2018-06-24] MEDS ORDERED: Iodixanol 320 mg/ml 150 ml Bottle IV ONE (14:25)
[2018-06-24] MEDS: Insulin Detemir 100 units/ml Vial (Levemir) SC SCH (18:00)
[2018-06-24 20:37] LABS: ALB/GLOB RATIO 0.9 (1.0-2.1); ALBUMIN 3.1 g/dL (3.5-5.0); CALCIUM 8.5 mg/dl (8.6-10.4)
[2018-06-25] MEDS: Piperacillin/Tazobact 3.375 GM in Sodium Chloride 100 ML IVPB SCH ×4 (00:11→17:10)
[2018-06-25 07:18] LABS: BASO # 0.1 K/uL (0.0-0.2); BASO % 0.6 % (0.0-2.0); EOS # 0.4 K/uL (0.0-0.7); EOS % 3.8 % (0.0-4.0); HEMOGLOBIN 10.5 g/dL (11.0-16.0); LYMPH # 1.4 K/uL (1.0-4.3); MEAN CELL VOLUME 76.6 fL (81.0-99.0); MEAN CORPUSCULAR HGB CONC 32.6 g/dL (33.0-37.0); MEAN PLATELET VOLUME 8.1 fL (7.2-11.7); MONO # 1.3 K/uL (0.0-0.8); MONO % 12.9 % (0.0-10.0); NEUT # 6.7 K/uL (1.8-7.0); NEUT % 68.7 % (50.0-75.0); NRBC % 0.1 % (0.0-2.0); RBC 4.19 Mil/uL (3.80-5.20); RED CELL DISTRIBUTION WIDTH 14.6 % (11.5-14.5); WHITE BLOOD COUNT 9.7 K/uL (4.8-10.8)
[2018-06-25 07:58] LABS: ALB/GLOB RATIO 0.8 (1.0-2.1); ALT/SGPT 16 U/L (9-52); AST/SGOT 13 U/L (14-36); BLOOD UREA NITROGEN 7 mg/dL (7-17); CALCIUM 8.5 mg/dl (8.6-10.4); GFR NON-AFRICAN AMERICAN 55
[2018-06-25] MEDS: (Novolin R) Insulin Human Regular 100 units/ml vial SC SCH ×3 (08:30→16:30)
[2018-06-25] MEDS: (Novolog) Insulin Aspart, Recombinant 100 u/ml 10 ml vial SC SCH ×4 (08:30→21:33)
[2018-06-25] MEDS: Vancomycin 1 gm/NS 200 ml 1 GM/200 ML BAG IVPB SCH (09:15)
[2018-06-25] MEDS: Nystatin 100,000 Units/gm Topical Pow(15 gm) TOP SCH ×3 (10:28→17:11)
[2018-06-25] MEDS: Enoxaparin 40 mg Syringe SC SCH (10:29)
--- NOTE | 2018-06-25 12:04 | CP.PCM.PN ---
Subjective - Date & Time of Evaluation Date of Evaluation: 06/25/18 Time of Evaluation: 07:00 - Subjective Subjective: MRI + MSSA from wound cont iv rx 6 weeks ok to d/c Vanco Objective - Vital Signs/Intake and Output Vital Signs (last 24 hours): Temp Pulse Resp BP Pulse Ox 98.9 F 69 20 151/71 H 97 06/25/18 07:54 06/25/18 07:54 06/25/18 07:54 06/25/18 07:54 06/25/18 07:54 Intake and Output: 06/25/18 06/25/18 06:59 18:59 Intake Total 250 Balance 250 - Medications Medications: Current Medications Amlodipine Besylate (Norvasc) 10 mg PO DAILY [facility] Last Admin: 06/25/18 10:29 Dose: 10 mg Apixaban (Eliquis) 2.5 mg PO BID [facility] Last Admin: 06/25/18 10:30 Dose: 2.5 mg Clopidogrel Bisulfate (Plavix) 75 mg PO DAILY [facility] Last Admin: 06/25/18 10:30 Dose: 75 mg Dextrose (Dextrose 50% Inj) 0 ml IV STAT PRN; Protocol PRN Reason: Hypoglycemia Protocol Dextrose (Glutose 15) 0 gm PO ONCE PRN; Protocol PRN Reason: Hypoglycemia Protocol Donepezil HCl (Aricept) 5 mg PO DAILY [facility] Last Admin: 06/25/18 10:29 Dose: 5 mg Enoxaparin Sodium (Lovenox) 40 mg SC DAILY [facility] Last Admin: 06/25/18 10:29 Dose: 40 mg Gabapentin (Neurontin) 400 mg PO BID [facility] Last Admin: 06/25/18 10:30 Dose: 400 mg Glucagon (Glucagen Diagnostic Kit) 0 mg IM STAT PRN; Protocol PRN Reason: Hypoglycemia Protocol Piperacillin Sod/Tazobactam (Sod 3.375 gm/ Sodium Chloride) 100 mls @ 200 mls/hr IVPB Q6H [facility]; Protocol Last Admin: 06/25/18 05:45 Dose: 200 mls/hr Dextrose (Dextrose 5% In Water 1000 Ml) 1,000 mls @ 0 mls/hr IV .Q0M PRN; Protocol PRN Reason: Hypoglycemia Protocol Vancomycin HCl 1 gm/ Sodium (Chloride) 250 mls @ 166.7 mls/hr IVPB Q24H [facility]; Protocol Insulin Aspart (Novolog) 0 unit SC ACHS [facility]; Protocol Last Admin: 06/25/18 08:30 Dose: 1 units Insulin Detemir (Levemir) 15 unit SC QPM [facility] Last Admin: 06/24/18 18:00 Dose: 15 u Insulin Human Regular (Novolin R) 4 unit SC AC [facility] Last Admin: 06/25/18 08:30 Dose: 4 units Losartan Potassium (Cozaar) 100 mg PO DAILY [facility] Last Admin: 06/25/18 10:29 Dose: 100 mg Nystatin (Nystop Topical Powder) 2 gm TOP TID [facility] Last Admin: 06/25/18 10:28 Dose: 1 applic Oxycodone/Acetaminophen (Percocet 5/325 Mg Tab) 1 tab PO Q4H PRN PRN Reason: pain Stop: 06/25/18 22:00 Last Admin: 06/24/18 16:35 Dose: 1 tab - Labs Labs: 06/25/18 07:11 06/25/18 07:11 PT 13.2 SECONDS (9.7-12.2) H 06/22/18 18:55 INR 1.2 06/22/18 18:55 APTT 36 SECONDS (21-34) H 06/22/18 18:55 - Constitutional Appears: Non-toxic, Chronically Ill - Head Exam Head Exam: NORMOCEPHALIC - Eye Exam Eye Exam: absent: Scleral icterus - ENT Exam ENT Exam: Mucous Membranes Dry - Neck Exam Neck Exam: absent: Lymphadenopathy - Respiratory Exam Respiratory Exam: Decreased Breath Sounds - Cardiovascular Exam Cardiovascular Exam: REGULAR RHYTHM - GI/Abdominal Exam GI & Abdominal Exam: Distended, Soft - Rectal Exam Rectal Exam: Deferred - Exam Exam: NORMAL INSPECTION - Extremities Exam Extremities Exam: Pedal Edema, Tenderness Additional comments: wound right medial foot - Back Exam Back Exam: absent: CVA tenderness (L), CVA tenderness (R) - Neurological Exam Neurological Exam: Alert, Awake, CN II-XII Intact, Oriented x3 - Psychiatric Exam Psychiatric exam: Depressed - Skin Skin Exam: Dry Assessment and Plan - Assessment and Plan (Free Text) Assessment: cont iv rx MRI possible 6 weeks rx
--- NOTE | 2018-06-25 13:36 | CT ---
Date of service: 06/24/2018 PROCEDURE: CT Angiography Abdomen, Pelvis and Lower Extremity with Contrast HISTORY: plann for possible bypass COMPARISON: None available. TECHNIQUE: Technique: CT angiography of the abdomen, pelvis and bilateral lower extremities performed in the arterial phase of enhancement. Coronal and sagittal reformats, and well as rotating MIP images of the vessels generated at the workstation. Intravenous contrast dose: 150 milliliters Visipaque 320 Radiation dose: Total exam DLP = 1983.02 mGy-cm. This CT exam was performed using one or more of the following dose reduction techniques: Automated exposure control, adjustment of the mA and/or kV according to patient size, and/or use of iterative reconstruction technique. FINDINGS: CT ANGIOGRAPHY: ABDOMINAL AORTA:: There is mild calcific plaque in the abdominal aorta which is otherwise unremarkable. MAJOR AORTIC BRANCHES: Celiac [place]: Unremarkable. Splenic artery and common hepatic artery are heavily calcified. Superior mesenteric artery: Is of SMA are heavily calcified. The SMA is unremarkable. Inferior mesenteric artery: Unremarkable. Renal arteries: Unremarkable. PELVIC ARTERIES: Right Common Iliac: Unremarkable. Right External Iliac: Unremarkable. Right Internal Iliac: Unremarkable. Left Common Iliac: Unremarkable. Left External Iliac: Unremarkable. Left Internal Iliac: Unremarkable. RIGHT LOWER EXTREMITY ARTERIES: Right Common Femoral: Poor opacification of the common femoral artery without significant stenosis. Right Superficial Femoral: Is almost no contrast seen within the SFA which limits evaluation. This may be secondary occlusion of the SFA are severe stenosis proximal segment. Right Profunda Femoris: Moderate calcific plaque, poorly opacified. Right Popliteal:Poor opacification of the popliteal artery which limits evaluation. Right Anterior Tibial: There is some flow seen within the anterior tibial artery which appears unremarkable. Right Tibioperoneal Trunk: Unremarkable. Right Posterior Tibial: Some flow seen within the posterior tibial artery which appears unremarkable.. Right Peroneal: There is some flow within the peroneal artery which appears unremarkable Right dorsalis pedis : Unremarkable. LEFT LOWER EXTREMITY ARTERIES: Left Common Femoral: Poor opacification of the common femoral artery which is otherwise unremarkable. Left Superficial Femoral: With almost no contrast within the SFA which may be secondary to an occlusion or severe stenosis within the proximal segment.. Left Profunda Femoris: Moderate calcific plaque. Poorly opacified. Left Popliteal: Poorly opacified which limits evaluation. Possible moderate stenosis. Left Anterior Tibial: Unremarkable. Left Tibioperoneal Trunk: Unremarkable. Left Posterior Tibial: Occluded Left Peroneal: Unremarkable. Left Dorsalis pedis: Unremarkable. NON-ANGIOGRAPHIC ASPECT OF THE EXAM: LOWER THORAX: Unremarkable. LIVER: Unremarkable. No gross lesion or ductal dilatation. GALLBLADDER AND BILE DUCTS: Unremarkable. PANCREAS: Unremarkable. No gross lesion or ductal dilatation. SPLEEN: Unremarkable. ADRENALS: Unremarkable. No mass. KIDNEYS AND URETERS: Unremarkable. No hydronephrosis. No solid mass. STOMACH AND BOWEL: Unremarkable. No obstruction. No gross mural thickening. APPENDIX: Normal appendix. PERITONEUM: Unremarkable. No free fluid. No free air. LYMPH NODES: Unremarkable. No enlarged lymph nodes. BLADDER: Unremarkable. REPRODUCTIVE: Unremarkable. BONES: No acute fracture. OTHER FINDINGS: None. IMPRESSION: There is poor opacification of right and left lower extremities which limits their evaluation. CT ANGIOGRAM ABDOMEN/PELVIS: 1. The abdominal aorta and pelvic arteries are unremarkable. Branches of the SMA and celiac artery are heavily calcified. RIGHT LOWER EXTREMITY CT ANGIOGRAM: 1. Common femoral artery is normal. Opacification of the common femoral artery. 2. Moderate calcific plaque of the profunda femoral artery. 3. There is almost no contrast seen within the SFA which may be secondary to stenosis or occlusion in the proximal segment. 4. Popliteal artery is poorly opacified but patent. 5. Runoff shows patent anterior tibial artery posterior tibial artery peroneal artery. No definite stenosis present. LEFT LOWER EXTREMITY CT ANGIOGRAM: 1. The common femoral artery is poorly opacified. Common femoral is otherwise normal. 2. The profunda femoral artery has moderate calcific plaque. 3. There is almost no contrast within the SFA which may be secondary to chronic occlusion or stenosis within the proximal segment. 4. Moderate stenosis of popliteal artery which is also poorly opacified. 5. Runoff shows in the anterior tibial artery and peroneal artery. The posterior tibial artery is occluded.
--- NOTE | 2018-06-25 14:15 | VASCLAB ---
Date of service: 06/24/2018 PROCEDURE: Lower Extremity Vein mapping. HISTORY: Right wound, Pre-op bypass, Vein mapping. PRIORS: None. TECHNIQUE: Bilateral common femoral, femoral, popliteal and posterior tibial, peroneal and great saphenous veins were evaluated. Flow was assessed with color Doppler, compressibility, assessment of phasic flow and augmentation response. Report prepared by Benjamín Cruz, BS, RVT FINDINGS: RIGHT: 1. Common Femoral Vein: Compressibility - Fully compressible: Thrombus - None : Flow - Phasic: Augmentation -Normal: Reflux - None. 2. Femoral Vein:Compressibility - Fully compressible: Thrombus - None 3. Popliteal Vein: Compressibility - Fully compressible: Thrombus - None 4. Posterior Tibial Vein: Compressibility - Fully compressible: Thrombus - None 5. Peroneal Vein:Compressibility - Fully compressible: Thrombus - None 6. Greater Saphenous Vein: Compressibility - Fully compressible: Thrombus - None 6.1. Thigh - Proximal Diameter: 0.64cm. Mid Diameter: 0.51cm. Distal Diameter: 0.45cm. Knee Diameter: 0.46cm. 6.2. Calf - Proximal Diameter: 0.40cm. Mid Diameter:0.36cm. Distal Diameter: 0.32cm 6.3. Ankle - Diameter: 0.35cm 7. [place] Saphenous Vein: Compressibility - Fully compressible: thrombus - None 7.1. Knee - Diameter 0.39cm 7.2. Calf - Proximal Diameter: 0.42cm. Mid Diameter: 0.29cm. Distal Diameter: 0.28cm. 7.3. Ankle - Diameter: 0.28cm LEFT: 1. Common Femoral Vein: Compressibility - Fully compressible: Thrombus - None : Flow - Phasic: Augmentation -Normal: Reflux - None. 2. Femoral Vein:Compressibility - Fully compressible: Thrombus - None 3. Popliteal Vein: Compressibility - Fully compressible: Thrombus - None 4. Posterior Tibial Vein: Compressibility - Fully compressible: Thrombus - None 5. Peroneal Vein:Compressibility - Fully compressible: Thrombus - None 6. [place] Saphenous Vein: Compressibility - Fully compressible: thrombus - None 6.1. Knee - Diameter 0.55cm 6.2. Calf - Proximal Diameter: 0.37cm. Mid Diameter: 0.28cm. Distal Diameter: 0.26cm. 6.3. Ankle - Diameter: 0.22cm OTHER FINDINGS: Right: None. Left: None. IMPRESSION: Right: Diameter measurements of the right greater saphenous vein are measured between 0.32 cm and 0.64 cm and lesser saphenous vein is measured between 0.28 cm and 0.42 cm. Left: Diameter measurements of the left lesser saphenous vein is measured between 0.22 cm and 0.55 cm. The left greater saphenous vein has been previously removed.
--- NOTE | 2018-06-25 14:16 | VASCLAB ---
Date of service: 06/24/2018 STUDY DESCRIPTION: Lower Extremity Arterial Exam (PVR). HISTORY: right heel ulcer, left leg s/p bypass PRIORS: None. TECHNIQUE: Pulse volume recording waveforms and segmental pressures of bilateral lower extremities at multiple levels were obtained. Ankle Brachial Indices (ABIs) were calculated. Report prepared by AYAN Yee, RVT RIGHT LOWER EXTREMITY: * Brachial artery: Pressure - 144 mmHg. * High thigh: Pressure - mmHg: Ratio - : PVR waveform - Reduced * Low thigh: Pressure - mmHg: Ratio - PVR waveform: Reduced * Calf: Pressure - 55 mmHg: Ratio - 0.36 PVR waveform: Reduced * Posterior tibial Artery: Pressure - 50 mmHg: Ratio - 0.33 PVR waveform: Reduced * Dorsalis pedis Artery: Pressure - 56 mmHg: Ratio - 0.37 PVR waveform: Reduced * Great toe: Pressure - mmHg: Ratio - PVR waveform: Ankle brachial index (MARK): 0.37 LEFT LOWER EXTREMITY: * Brachial artery: Pressure - 151 mmHg. * High thigh: Pressure - mmHg: Ratio - : PVR waveform - Reduced * Low thigh: Pressure - mmHg: Ratio - PVR waveform: Reduced * Calf: Pressure - mmHg: Ratio - PVR waveform: Reduced * Posterior tibial Artery: Pressure - 77 mmHg: Ratio - 0.51 PVR waveform: Reduced * Dorsalis pedis Artery: Pressure - 79 mmHg: Ratio - 0.52 PVR waveform: Reduced * Great toe: Pressure - mmHg: Ratio - PVR waveform: Ankle brachial index (MARK): 0.52 OTHER FINDINGS: Right: Left: IMPRESSION: Right: This exam reveals severely decreased perfusion of the right lower extremity, noted from the iliac to tibial artery levels. Left: This exam reveals moderately decreased perfusion of the left lower extremity, noted from the iliac to tibial artery levels.
--- NOTE | 2018-06-25 14:49 | CP.PCM.PN ---
Subjective - Date & Time of Evaluation Date of Evaluation: 06/25/18 Time of Evaluation: 09:00 - Subjective Subjective: Progress Note: Dr. Miranda's Service: Patient was seen and examined at bedside in the AM. Patient has no complaints this morning; denies all symptoms Objective - Vital Signs/Intake and Output Vital Signs (last 24 hours): Temp Pulse Resp BP Pulse Ox 98.9 F 69 20 151/71 H 97 06/25/18 07:54 06/25/18 07:54 06/25/18 07:54 06/25/18 07:54 06/25/18 07:54 Intake and Output: 06/25/18 06/25/18 06:59 18:59 Intake Total 250 Balance 250 - Medications Medications: Current Medications Amlodipine Besylate (Norvasc) 10 mg PO DAILY [facility] Last Admin: 06/25/18 10:29 Dose: 10 mg Apixaban (Eliquis) 2.5 mg PO BID [facility] Last Admin: 06/25/18 10:30 Dose: 2.5 mg Clopidogrel Bisulfate (Plavix) 75 mg PO DAILY [facility] Last Admin: 06/25/18 10:30 Dose: 75 mg Dextrose (Dextrose 50% Inj) 0 ml IV STAT PRN; Protocol PRN Reason: Hypoglycemia Protocol Dextrose (Glutose 15) 0 gm PO ONCE PRN; Protocol PRN Reason: Hypoglycemia Protocol Donepezil HCl (Aricept) 5 mg PO DAILY [facility] Last Admin: 06/25/18 10:29 Dose: 5 mg Enoxaparin Sodium (Lovenox) 40 mg SC DAILY [facility] Last Admin: 06/25/18 10:29 Dose: 40 mg Gabapentin (Neurontin) 400 mg PO BID [facility] Last Admin: 06/25/18 10:30 Dose: 400 mg Glucagon (Glucagen Diagnostic Kit) 0 mg IM STAT PRN; Protocol PRN Reason: Hypoglycemia Protocol Piperacillin Sod/Tazobactam (Sod 3.375 gm/ Sodium Chloride) 100 mls @ 200 mls/hr IVPB Q6H [facility]; Protocol Last Admin: 06/25/18 12:22 Dose: 200 mls/hr Dextrose (Dextrose 5% In Water 1000 Ml) 1,000 mls @ 0 mls/hr IV .Q0M PRN; Protocol PRN Reason: Hypoglycemia Protocol Insulin Aspart (Novolog) 0 unit SC ACHS [facility]; Protocol Last Admin: 06/25/18 12:23 Dose: 2 units Insulin Detemir (Levemir) 15 unit SC QPM [facility] Last Admin: 06/24/18 18:00 Dose: 15 u Insulin Human Regular (Novolin R) 4 unit SC AC [facility] Last Admin: 06/25/18 12:22 Dose: 4 units Losartan Potassium (Cozaar) 100 mg PO DAILY [facility] Last Admin: 06/25/18 10:29 Dose: 100 mg Nystatin (Nystop Topical Powder) 2 gm TOP TID [facility] Last Admin: 06/25/18 13:11 Dose: 1 applic Oxycodone/Acetaminophen (Percocet 5/325 Mg Tab) 1 tab PO Q4H PRN PRN Reason: pain Stop: 06/25/18 22:00 Last Admin: 06/24/18 16:35 Dose: 1 tab - Labs Labs: 06/25/18 07:11 06/25/18 07:11 PT 13.2 SECONDS (9.7-12.2) H 06/22/18 18:55 INR 1.2 06/22/18 18:55 APTT 36 SECONDS (21-34) H 06/22/18 18:55 - Constitutional Appears: No Acute Distress - Head Exam Head Exam: ATRAUMATIC, NORMAL INSPECTION - Eye Exam Eye Exam: EOMI, Normal appearance - ENT Exam ENT Exam: Mucous Membranes Moist - Respiratory Exam Respiratory Exam: Clear to Ausculation Bilateral, NORMAL BREATHING PATTERN - Cardiovascular Exam Cardiovascular Exam: REGULAR RHYTHM, +S1, +S2 - GI/Abdominal Exam GI & Abdominal Exam: Soft, Normal Bowel Sounds. absent: Tenderness - Extremities Exam Additional comments: wound on the left ankle that is recently covered with new bandages, feet are warm - Neurological Exam Neurological Exam: Awake - Psychiatric Exam Psychiatric exam: Normal Affect - Skin Skin Exam: Normal Color, Warm Assessment and Plan - Assessment and Plan (Free Text) Assessment: 73 year old female admitted 06/22/18 for non healing right heel wound with possible osteomyelitis. R Heel Wound - ID Consult: Dr. Dominguez --> help appreciated - Vascular Consult: Dr. Mcdonald --> help appreciated - Podiatry Consult: Dr. Smart --> help appreciated - Images: * Right Foot Xray: Soft tissue ulceration seen overlying the posterior calcaneus. No evidence of gross cortical irregularity at the level of the calcaneus to suggest an acute osteomyelitis. If there is concern for acute osteomyelitis, consider correlation with MRI. Diffuse osteopenia. Dorsal soft tissue swelling at the level of the midfootHallux valgus deformity. * Lower Extremity US: Negative * Lower Extremity MRI: Prominent soft tissue ulceration/defect seen within the medial subcutaneous soft tissues at the level of the posterior heel. Reticulation and edema within the adjacent soft tissues. At that level, within the medial cortex of the posterior calcaneus, there is some mild increased STIR signal without gross corresponding decreased T1 signal as demonstrated on series 5, images 16-18 as well as series 7 images 5-8. These changes likely do not represent a gross acute osteomyelitis; however, an early acute and or developing acute osteomyelitis cannot entirely be excluded. Continued interval follow-up and or correlation with three-phase bone scan may be helpful if indicated. - Medications: * Zosyn 3.375 Q6H - f/u blood cultures; negative to date - wound culture: Staph Aureus Hx of HTN - c/w amlodipine Hx of PAD - Extremity Venous Study: Right: Diameter measurements of the right greater saphenous vein are measured between 0.32 cm and 0.64 cm and lesser saphenous vein is measured between 0.28 cm and 0.42 cm. Left: Diameter measurements of the left lesser saphenous vein is measured between 0.22 cm and 0.55 cm. The left greater saphenous vein has been previously removed. - Abdominal Angiography: There is poor opacification of right and left lower extremities which limits their evaluation. Please see full report. - c/w eliquis 2.5mg BID - Plavix 75mg daily Hx of Dementia - c/w donepizil 5mg daily Hx of Neuropathy - c/w Gabapentin BID 400mg Prophylaxis - Lovenox 40mg sc - GI prophylaxis not indicated - PT OT eval Case discussed and seen with Dr. Ruben Yang PGY-2
--- NOTE | 2018-06-25 15:23 | RAD ---
Date of service: 06/25/2018 HISTORY: PICC Insertion COMPARISON: 07/07/2016 FINDINGS: LUNGS: Atelectasis at the lung bases PLEURA: No significant pleural effusion identified, no pneumothorax apparent. CARDIOVASCULAR: No atherosclerotic calcification present PICC line in satisfactory position the tip is in the SVC within 4 cm of the cavoatrial junction. OSSEOUS STRUCTURES: No significant abnormalities. VISUALIZED UPPER ABDOMEN: Normal. OTHER FINDINGS: None. IMPRESSION: Satisfactory position of recently placed PICC line. No pneumothorax. Atelectasis at the lung bases particularly on the right.
--- NOTE | 2018-06-25 17:07 | CP.PCM.PN ---
Subjective - Date & Time of Evaluation Date of Evaluation: 06/25/18 Time of Evaluation: 17:04 - Subjective Subjective: Podiatry Progress Note for Dr. Smart 73F seen for infected right foot heel wound and left heel callus. Patient is AAO x 3 at time of visit. States that she continues to have pain to her right heel. Also states that she continues to have pain in her right foot. Denies any further pedal complaints at this time. Denies any recent N/V/CP/SOB/D. Multipodus boots are seen to be in place at this time. Objective - Vital Signs/Intake and Output Vital Signs (last 24 hours): Temp Pulse Resp BP Pulse Ox 98.9 F 69 20 151/71 H 97 06/25/18 07:54 06/25/18 07:54 06/25/18 07:54 06/25/18 07:54 06/25/18 07:54 Intake and Output: 06/25/18 06/25/18 06:59 18:59 Intake Total 250 Balance 250 - Medications Medications: Current Medications Amlodipine Besylate (Norvasc) 10 mg PO DAILY [facility] Last Admin: 06/25/18 10:29 Dose: 10 mg Apixaban (Eliquis) 2.5 mg PO BID [facility] Last Admin: 06/25/18 17:02 Dose: 2.5 mg Clopidogrel Bisulfate (Plavix) 75 mg PO DAILY [facility] Last Admin: 06/25/18 10:30 Dose: 75 mg Dextrose (Dextrose 50% Inj) 0 ml IV STAT PRN; Protocol PRN Reason: Hypoglycemia Protocol Dextrose (Glutose 15) 0 gm PO ONCE PRN; Protocol PRN Reason: Hypoglycemia Protocol Donepezil HCl (Aricept) 5 mg PO DAILY [facility] Last Admin: 06/25/18 10:29 Dose: 5 mg Enoxaparin Sodium (Lovenox) 40 mg SC DAILY [facility] Last Admin: 06/25/18 10:29 Dose: 40 mg Gabapentin (Neurontin) 400 mg PO BID [facility] Last Admin: 06/25/18 10:30 Dose: 400 mg Glucagon (Glucagen Diagnostic Kit) 0 mg IM STAT PRN; Protocol PRN Reason: Hypoglycemia Protocol Piperacillin Sod/Tazobactam (Sod 3.375 gm/ Sodium Chloride) 100 mls @ 200 mls/hr IVPB Q6H [facility]; Protocol Last Admin: 06/25/18 12:22 Dose: 200 mls/hr Dextrose (Dextrose 5% In Water 1000 Ml) 1,000 mls @ 0 mls/hr IV .Q0M PRN; Protocol PRN Reason: Hypoglycemia Protocol Insulin Aspart (Novolog) 0 unit SC ACHS [facility]; Protocol Last Admin: 06/25/18 16:30 Dose: 2 units Insulin Detemir (Levemir) 15 unit SC QPM [facility] Last Admin: 06/24/18 18:00 Dose: 15 u Insulin Human Regular (Novolin R) 4 unit SC AC [facility] Last Admin: 06/25/18 16:30 Dose: 4 units Losartan Potassium (Cozaar) 100 mg PO DAILY [facility] Last Admin: 06/25/18 10:29 Dose: 100 mg Nystatin (Nystop Topical Powder) 2 gm TOP TID [facility] Last Admin: 06/25/18 13:11 Dose: 1 applic Oxycodone/Acetaminophen (Percocet 5/325 Mg Tab) 1 tab PO Q4H PRN PRN Reason: pain Stop: 06/25/18 22:00 Last Admin: 06/24/18 16:35 Dose: 1 tab - Labs Labs: 06/25/18 07:11 06/25/18 07:11 PT 13.2 SECONDS (9.7-12.2) H 06/22/18 18:55 INR 1.2 06/22/18 18:55 APTT 36 SECONDS (21-34) H 06/22/18 18:55 - Constitutional Appears: Well, Non-toxic, No Acute Distress - Extremities Exam Additional comments: VASC: DP and PT faintly palpable to the left lower extremity and non-palpable to the right lower extremity, TG cool to cool R > L, with minimal edema noted to dorsum of both feet NEURO: Epicritic and protective sensation grossly intact b/l DERM: xerosis noted to bilateral feet Left- small area of pre-ulcerative lesion noted to the plantar aspect of the left heel, no drainage, no probe to bone, no tunneling, no malodor Right- New 1 cm x 1 cm blister noted to posterior/medial heel. Blister was deroofed and found to have roughly 1 cc of foul smelling, brownish-white purulence present. Underlying skin is granular with no probe to bone, tracking, tunneling or undermining noted. Cellulitic changes to right leg resolved at this time ORTHO: significant pain on palpation to the right heel - Neurological Exam Neurological Exam: Alert, Awake, Oriented x3 - Psychiatric Exam Psychiatric exam: Normal Affect, Normal Mood Assessment and Plan - Assessment and Plan (Free Text) Assessment: 73F seen for infected right foot heel wound and left heel callus Plan: Patient seen and evaluated Plan discussed with Dr. Smart Afebrile, absent leukocytosis Continue abx per ID Wound cx: Staph aureus R foot xray:Soft tissue ulceration seen overlying the posterior calcaneus. No evidence of gross cortical irregularity at the level of the calcaneus to suggest an acute osteomyelitis. If there is concern for acute osteomyelitis, consider correlation with MRI. LE MRI: Prominent soft tissue ulceration/defect seen within the medial subcutaneous soft tissues at the level of the posterior heel. Reticulation and edema within the adjacent soft tissues. At that level, within the medial cortex of the posterior calcaneus, there is some mild increased STIR signal without gross corresponding decreased T1 signal as demonstrated on series 5, images 16- 18 as well as series 7 images 5-8. These changes likely do not represent a gross acute osteomyelitis; however, an early acute and or developing acute osteomyelitis cannot entirely be excluded. Continued interval follow-up and or correlation with three-phase bone scan may be helpful if indicated. Triple phase bone scan ordered Wound dressed with xeroform, DSD, offloading boots No plan for surgical intervention at this time Podiatry will continue to follow while patient in house
[2018-06-25] MEDS: Insulin Detemir 100 units/ml Vial (Levemir) SC SCH (18:00)
[2018-06-26] MEDS: Piperacillin/Tazobact 3.375 GM in Sodium Chloride 100 ML IVPB SCH ×4 (00:11→17:38)
[2018-06-26 06:55] LABS: BASO # 0.1 K/uL (0.0-0.2); BASO % 0.8 % (0.0-2.0); EOS # 0.4 K/uL (0.0-0.7); EOS % 4.4 % (0.0-4.0); HEMOGLOBIN 10.5 g/dL (11.0-16.0); LYMPH # 1.6 K/uL (1.0-4.3); LYMPH % 18.1 % (20.0-40.0); MEAN CELL VOLUME 76.7 fL (81.0-99.0); MEAN CORPUSCULAR HEMOGLOBIN 24.6 pg (27.0-31.0); MEAN PLATELET VOLUME 7.7 fL (7.2-11.7); MONO # 1.2 K/uL (0.0-0.8); MONO % 14.5 % (0.0-10.0); NEUT # 5.3 K/uL (1.8-7.0); NEUT % 62.2 % (50.0-75.0); RBC 4.28 Mil/uL (3.80-5.20); RED CELL DISTRIBUTION WIDTH 14.4 % (11.5-14.5); WHITE BLOOD COUNT 8.6 K/uL (4.8-10.8)
[2018-06-26 07:11] LABS: ALB/GLOB RATIO 0.9 (1.0-2.1); ALBUMIN 3.1 g/dL (3.5-5.0); ALT/SGPT 19 U/L (9-52); AST/SGOT 13 U/L (14-36); BLOOD UREA NITROGEN 6 mg/dL (7-17); CALCIUM 8.6 mg/dl (8.6-10.4); GFR NON-AFRICAN AMERICAN 55
[2018-06-26] MEDS: (Novolin R) Insulin Human Regular 100 units/ml vial SC SCH ×3 (07:47→16:30)
[2018-06-26] MEDS: (Novolog) Insulin Aspart, Recombinant 100 u/ml 10 ml vial SC SCH ×4 (08:17→21:52)
--- NOTE | 2018-06-26 10:20 | CP.PCM.PN ---
Subjective - Date & Time of Evaluation Date of Evaluation: 06/26/18 Time of Evaluation: 07:30 - Subjective Subjective: Vascular Surgery: Dr. Mcdonald Pt seen and examined. No acute events overnight. Pt denies pain, fevers/chills. Objective - Vital Signs/Intake and Output Vital Signs (last 24 hours): Temp Pulse Resp BP Pulse Ox 98.7 F 75 20 147/67 98 06/26/18 08:04 06/26/18 08:04 06/26/18 08:04 06/26/18 08:04 06/26/18 08:04 Intake and Output: 06/26/18 06/26/18 06:59 18:59 Intake Total 740 Balance 740 - Medications Medications: Current Medications Amlodipine Besylate (Norvasc) 10 mg PO DAILY COUNTS INCLUDE 234 BEDS AT THE [facility] Last Admin: 06/25/18 10:29 Dose: 10 mg Apixaban (Eliquis) 2.5 mg PO BID COUNTS INCLUDE 234 BEDS AT THE [facility] Last Admin: 06/25/18 17:02 Dose: 2.5 mg Clopidogrel Bisulfate (Plavix) 75 mg PO DAILY COUNTS INCLUDE 234 BEDS AT THE [facility] Last Admin: 06/25/18 10:30 Dose: 75 mg Dextrose (Dextrose 50% Inj) 0 ml IV STAT PRN; Protocol PRN Reason: Hypoglycemia Protocol Dextrose (Glutose 15) 0 gm PO ONCE PRN; Protocol PRN Reason: Hypoglycemia Protocol Donepezil HCl (Aricept) 5 mg PO DAILY COUNTS INCLUDE 234 BEDS AT THE [facility] Last Admin: 06/25/18 10:29 Dose: 5 mg Enoxaparin Sodium (Lovenox) 40 mg SC DAILY COUNTS INCLUDE 234 BEDS AT THE [facility] Last Admin: 06/25/18 10:29 Dose: 40 mg Gabapentin (Neurontin) 400 mg PO BID COUNTS INCLUDE 234 BEDS AT THE [facility] Last Admin: 06/25/18 18:10 Dose: 400 mg Glucagon (Glucagen Diagnostic Kit) 0 mg IM STAT PRN; Protocol PRN Reason: Hypoglycemia Protocol Piperacillin Sod/Tazobactam (Sod 3.375 gm/ Sodium Chloride) 100 mls @ 200 mls/hr IVPB Q6H COUNTS INCLUDE 234 BEDS AT THE [facility]; Protocol Last Admin: 06/26/18 06:11 Dose: 200 mls/hr Dextrose (Dextrose 5% In Water 1000 Ml) 1,000 mls @ 0 mls/hr IV .Q0M PRN; Prot ocol PRN Reason: Hypoglycemia Protocol Insulin Aspart (Novolog) 0 unit SC ACHS COUNTS INCLUDE 234 BEDS AT THE [facility]; Protocol Last Admin: 06/25/18 21:33 Dose: Not Given Insulin Detemir (Levemir) 15 unit SC QPM COUNTS INCLUDE 234 BEDS AT THE [facility] Last Admin: 06/25/18 18:00 Dose: 15 u Insulin Human Regular (Novolin R) 4 unit SC AC COUNTS INCLUDE 234 BEDS AT THE [facility] Last Admin: 06/26/18 07:47 Dose: Not Given Losartan Potassium (Cozaar) 100 mg PO DAILY COUNTS INCLUDE 234 BEDS AT THE [facility] Last Admin: 06/25/18 10:29 Dose: 100 mg Nystatin (Nystop Topical Powder) 2 gm TOP TID COUNTS INCLUDE 234 BEDS AT THE [facility] Last Admin: 06/25/18 17:11 Dose: 1 applic - Labs Labs: 06/26/18 06:40 06/26/18 06:40 PT 13.2 SECONDS (9.7-12.2) H 06/22/18 18:55 INR 1.2 06/22/18 18:55 APTT 36 SECONDS (21-34) H 06/22/18 18:55 - Constitutional Appears: Well, No Acute Distress - Head Exam Head Exam: ATRAUMATIC, NORMOCEPHALIC - Eye Exam Eye Exam: Normal appearance - ENT Exam ENT Exam: Mucous Membranes Moist - Respiratory Exam Respiratory Exam: NORMAL BREATHING PATTERN - Cardiovascular Exam Cardiovascular Exam: RRR - GI/Abdominal Exam GI & Abdominal Exam: Soft - Extremities Exam Additional comments: b/l LE warm - Neurological Exam Neurological Exam: Alert, Awake - Skin Skin Exam: Dry, Warm Assessment and Plan - Assessment and Plan (Free Text) Assessment: 73F with PAD & R foot ulcer Plan: - CTA shows b/l SFA occlusions - plan for R LE bypass - cardio eval for risk stratification - medically optimize for OR - d/w Dr. Harry Vizcaino
[2018-06-26] MEDS: Enoxaparin 40 mg Syringe SC SCH (11:16)
[2018-06-26] MEDS: Nystatin 100,000 Units/gm Topical Pow(15 gm) TOP SCH ×3 (11:21→17:43)
--- NOTE | 2018-06-26 11:50 | CP.PCM.PN ---
Subjective - Date & Time of Evaluation Date of Evaluation: 06/26/18 Time of Evaluation: 09:00 - Subjective Subjective: Progress Note: Dr. Miranda's Service: Patient was seen and examined at bedside in the AM. Patient has no complaints this morning. Difficult to attain ROS as patient is not oriented x3. Patient denies pain. Objective - Vital Signs/Intake and Output Vital Signs (last 24 hours): Temp Pulse Resp BP Pulse Ox 98.7 F 75 20 147/67 98 06/26/18 08:04 06/26/18 08:04 06/26/18 08:04 06/26/18 08:04 06/26/18 08:04 Intake and Output: 06/26/18 06/26/18 06:59 18:59 Intake Total 740 Balance 740 - Medications Medications: Current Medications Amlodipine Besylate (Norvasc) 10 mg PO DAILY [facility] Last Admin: 06/26/18 11:16 Dose: 10 mg Apixaban (Eliquis) 2.5 mg PO BID [facility] Last Admin: 06/26/18 11:16 Dose: 2.5 mg Clopidogrel Bisulfate (Plavix) 75 mg PO DAILY [facility] Last Admin: 06/26/18 11:16 Dose: 75 mg Dextrose (Dextrose 50% Inj) 0 ml IV STAT PRN; Protocol PRN Reason: Hypoglycemia Protocol Dextrose (Glutose 15) 0 gm PO ONCE PRN; Protocol PRN Reason: Hypoglycemia Protocol Donepezil HCl (Aricept) 5 mg PO DAILY [facility] Last Admin: 06/26/18 11:16 Dose: 5 mg Enoxaparin Sodium (Lovenox) 40 mg SC DAILY [facility] Last Admin: 06/26/18 11:16 Dose: 40 mg Gabapentin (Neurontin) 400 mg PO BID [facility] Last Admin: 06/26/18 11:20 Dose: 400 mg Glucagon (Glucagen Diagnostic Kit) 0 mg IM STAT PRN; Protocol PRN Reason: Hypoglycemia Protocol Piperacillin Sod/Tazobactam (Sod 3.375 gm/ Sodium Chloride) 100 mls @ 200 mls/hr IVPB Q6H [facility]; Protocol Last Admin: 06/26/18 11:21 Dose: 200 mls/hr Dextrose (Dextrose 5% In Water 1000 Ml) 1,000 mls @ 0 mls/hr IV .Q0M PRN; Protocol PRN Reason: Hypoglycemia Protocol Insulin Aspart (Novolog) 0 unit SC ACHS [facility]; Protocol Last Admin: 06/26/18 08:17 Dose: Not Given Insulin Detemir (Levemir) 15 unit SC QPM [facility] Last Admin: 06/25/18 18:00 Dose: 15 u Insulin Human Regular (Novolin R) 4 unit SC AC [facility] Last Admin: 06/26/18 07:47 Dose: Not Given Losartan Potassium (Cozaar) 100 mg PO DAILY [facility] Last Admin: 06/26/18 11:16 Dose: 100 mg Nystatin (Nystop Topical Powder) 2 gm TOP TID [facility] Last Admin: 06/26/18 11:21 Dose: 1 applic - Labs Labs: 06/26/18 06:40 06/26/18 06:40 PT 13.2 SECONDS (9.7-12.2) H 06/22/18 18:55 INR 1.2 06/22/18 18:55 APTT 36 SECONDS (21-34) H 06/22/18 18:55 - Constitutional Appears: No Acute Distress - Head Exam Head Exam: ATRAUMATIC, NORMAL INSPECTION - Eye Exam Eye Exam: EOMI - ENT Exam ENT Exam: Mucous Membranes Moist - Respiratory Exam Respiratory Exam: Clear to Ausculation Bilateral, NORMAL BREATHING PATTERN - Cardiovascular Exam Cardiovascular Exam: REGULAR RHYTHM, +S1, +S2 - GI/Abdominal Exam GI & Abdominal Exam: Soft, Normal Bowel Sounds. absent: Tenderness - Extremities Exam Additional comments: wound on the left ankle that is recently covered with new bandages, feet are warm - Neurological Exam Neurological Exam: Awake - Psychiatric Exam Psychiatric exam: Normal Affect - Skin Skin Exam: Warm Assessment and Plan - Assessment and Plan (Free Text) Assessment: 73 year old female admitted 06/22/18 for non healing right heel wound with possible osteomyelitis. R Heel Wound - Afebrile, absent leukocytosis - ID Consult: Dr. Dominguez --> help appreciated - Vascular Consult: Dr. Mcdonald --> help appreciated - Podiatry Consult: Dr. Smart --> help appreciated - per podiatry no surgical intervention at this time - Images: * Right Foot Xray: Soft tissue ulceration seen overlying the posterior calcaneus. No evidence of gross cortical irregularity at the level of the calcaneus to suggest an acute osteomyelitis. If there is concern for acute osteomyelitis, consider correlation with MRI. Diffuse osteopenia. Dorsal soft tissue swelling at the level of the midfoot Hallux valgus deformity. * Lower Extremity US: Negative * Lower Extremity MRI: Prominent soft tissue ulceration/defect seen within the medial subcutaneous soft tissues at the level of the posterior heel. Reticulation and edema within the adjacent soft tissues. At that level, within the medial cortex of the posterior calcaneus, there is some mild increased STIR signal without gross corresponding decreased T1 signal as demonstrated on series 5, images 16-18 as well as series 7 images 5-8. These changes likely do not represent a gross acute osteomyelitis; however, an early acute and or developing acute osteomyelitis cannot entirely be excluded. Continued interval follow-up and or correlation with three-phase bone scan may be helpful if indicated. - f/u blood cultures; negative to date - Wound culture: Staph Aureus - Medications: * Zosyn 3.375 Q6H (started on 06/23/18) * Florastor 250mg bid History of HTN - ECHO (10/19/17): EF 59%; the left ventricle is normal in size; normal left ventricular wall thickness; left ventricle function is normal; normal LV segmental wall motion - Chest Xray: Satisfactory position of recently placed PICC line. No pneumothorax. Atelectasis at the lung bases particularly on the right. - f/u EKG - Medications: * Amlodipine 10mg daily * Losartan 100mg po daily History of PAD - Extremity Venous Study: Right: Diameter measurements of the right greater saphenous vein are measured between 0.32 cm and 0.64 cm and lesser saphenous vein is measured between 0.28 cm and 0.42 cm. Left: Diameter measurements of the left lesser saphenous vein is measured between 0.22 cm and 0.55 cm. The left greater saphenous vein has been previously removed. - Abdominal Angiography: There is poor opacification of right and left lower extremities which limits their evaluation. Please see full report. - Vascular Consult: Dr. Mcdonald --> help appreciated - Plan for right lower extremity bypass; - Pending cardiac clearance - Cardiology Consult: Dr. Stroud --> help appreciated - Stress test Sunday06/28/18 - Medications - medications will need to be help prior to surgical procedure * Eliquis 2.5mg BID * Plavix 75mg daily History of CAD - f/u lipid panel - Medications - medications will need to be help prior to surgical procedure * Eliquis 2.5mg BID * Plavix 75mg daily * Crestor 10mg HS History of Diabetes type II - f/u hA1c - Hypoglycemia Protocol - Accuchecks - Medications: * Levemir 15units SC QPM * Novolin R 4 units SC AC * Novolog * Losartan 100mg po daily History of Neuropathy - Gabapentin 400mg bid History of Dementia - Donepizil 5mg daily Prophylaxis - Eliquis 2.5mg bid - GI prophylaxis not indicated - Florastor 250mg bid - PT/OT/Speech eval Case discussed and seen with Dr. Ruben Yang PGY-2
--- NOTE | 2018-06-26 12:52 | NM ---
Date of service: 06/26/2018 PROCEDURE: Three-phase bone Scan HISTORY: r/o OM right calcaneus COMPARISON: 07/03/2016 three-phase bone scan TECHNIQUE: Following administration of 24.9 miCu of Tc MDP three-phase bone scan performed per institutional protocol with particular attention directed to the right os calcis.. FINDINGS: Flow component: Increase flow to the right os calcis. Blood pool component: Increased accumulation of radionuclide plantar aspect the right calcaneus Delayed images at 3:00: Retention of radionuclide right calcaneus. Other findings: None. IMPRESSION: Positive 3 phase bone scan for acute osseous process right calcaneus.
--- NOTE | 2018-06-26 13:01 | CP.PCM.CON ---
<Sanna Salazar - Last Filed: 06/26/18 12:42> History of Present Illness - History of Present Illness History of Present Illness: CARDIOLOGY CONSULT NOTE This is a 73 year old female with past medical history of hypertension, type 2 DM, CAD with CABG, PVD, who was referred to our service by Dr. Miranda, for cardiac clearance for right lower extremity bypass. Patient is legally blind and bedbound. She admits to some right heel pain. Patient is oriented to person and place, family was not present at bedside. Denies any chest pain, dyspnea, palpitations. PMHx: As listed above PSHx: Left fem peroneal bypass w/ reversed saphenous [place] [address] Mcdonald CABG All: NKDA SHx: Denied any tobacco, alcohol or illicit drug Review of Systems - Constitutional Constitutional: absent: Chills, Fever - EENT Eyes: Loss of Vision Ears: absent: Ear Pain, Tinnitus Nose/Mouth/Throat: absent: Bleeding Gums, Dry Mouth, Sore Throat - Cardiovascular Cardiovascular: absent: Chest Pain, Chest Pain at Rest, Diaphoresis, Dyspnea, Dyspnea on Exertion, Edema, Irregular Heart Rhythm, Lightheadedness, Orthopnea, Palpitations, Pedal Edema, Rapid Heart Rate - Respiratory Respiratory: absent: Cough, Wheezing - Gastrointestinal Gastrointestinal: absent: Abdominal Pain, Nausea, Vomiting - Genitourinary Genitourinary: absent: Dysuria, Hematuria - Musculoskeletal Musculoskeletal: absent: Muscle Weakness - Neurological Neurological: absent: Abnormal Gait, Abnormal Hearing, Dizziness, Headaches, Weakness - Hematologic/Lymphatic Hematologic: absent: Easy Bleeding, Easy Bruising Past Patient History - Infectious Disease Hx of Infectious Diseases: None - Past Medical History & Family History Past Medical History?: Yes - Past Social History Smoking Status: Never Smoked - CARDIAC Hx Cardiac Disorders: Yes (CAD) - PULMONARY Hx Pneumonia: Yes - NEUROLOGICAL HX Cerebrovascular Accident: Yes (CVA) - HEENT Hx HEENT Problems: No - RENAL Hx Chronic Kidney Disease: No - ENDOCRINE/METABOLIC Hx Diabetes Mellitus Type 2: Yes - HEMATOLOGICAL/ONCOLOGICAL Hx Cancer: No - INTEGUMENTARY Other/Comment: left heel ulcer - MUSCULOSKELETAL/RHEUMATOLOGICAL Hx Falls: No - GASTROINTESTINAL Hx Gastrointestinal Disorders: No - GENITOURINARY/GYNECOLOGICAL Hx Genitourinary Disorders: No - PSYCHIATRIC Hx Substance Use: No - SURGICAL HISTORY Other/Comment: vascular surgery left leg 10/17 - ANESTHESIA Hx Anesthesia: Yes Hx Anesthesia Reactions: No Hx Malignant Hyperthermia: No Meds Allergies/Adverse Reactions: Allergies Allergy/AdvReac Type Severity Reaction Status Date / Time No Known Allergies Allergy Verified 06/22/18 17:21 - Medications Medications: Current Medications Amlodipine Besylate (Norvasc) 10 mg PO DAILY [facility] Last Admin: 06/26/18 11:16 Dose: 10 mg Apixaban (Eliquis) 2.5 mg PO BID [facility] Last Admin: 06/26/18 11:16 Dose: 2.5 mg Clopidogrel Bisulfate (Plavix) 75 mg PO DAILY [facility] Last Admin: 06/26/18 11:16 Dose: 75 mg Dextrose (Dextrose 50% Inj) 0 ml IV STAT PRN; Protocol PRN Reason: Hypoglycemia Protocol Dextrose (Glutose 15) 0 gm PO ONCE PRN; Protocol PRN Reason: Hypoglycemia Protocol Donepezil HCl (Aricept) 5 mg PO DAILY [facility] Last Admin: 06/26/18 11:16 Dose: 5 mg Gabapentin (Neurontin) 400 mg PO BID [facility] Last Admin: 06/26/18 11:20 Dose: 400 mg Glucagon (Glucagen Diagnostic Kit) 0 mg IM STAT PRN; Protocol PRN Reason: Hypoglycemia Protocol Piperacillin Sod/Tazobactam (Sod 3.375 gm/ Sodium Chloride) 100 mls @ 200 mls/hr IVPB Q6H [facility]; Protocol Last Admin: 06/26/18 11:21 Dose: 200 mls/hr Dextrose (Dextrose 5% In Water 1000 Ml) 1,000 mls @ 0 mls/hr IV .Q0M PRN; Protocol PRN Reason: Hypoglycemia Protocol Insulin Aspart (Novolog) 0 unit SC ACHS [facility]; Protocol Last Admin: 06/26/18 08:17 Dose: Not Given Insulin Detemir (Levemir) 15 unit SC QPM [facility] Last Admin: 06/25/18 18:00 Dose: 15 u Insulin Human Regular (Novolin R) 4 unit SC AC [facility] Last Admin: 06/26/18 07:47 Dose: Not Given Losartan Potassium (Cozaar) 100 mg PO DAILY [facility] Last Admin: 06/26/18 11:16 Dose: 100 mg Nystatin (Nystop Topical Powder) 2 gm TOP TID [facility] Last Admin: 06/26/18 11:21 Dose: 1 applic Rosuvastatin Calcium (Crestor) 10 mg PO HS [facility] Saccharomyces Boulardii (Florastor) 250 mg PO BID [facility] Physical Exam - Constitutional Appears: No Acute Distress - Head Exam Head Exam: NORMAL INSPECTION, NORMOCEPHALIC - Eye Exam Eye Exam: PERRL - ENT Exam ENT Exam: Mucous Membranes Moist - Respiratory Exam Respiratory Exam: Clear to Auscultation Bilateral, NORMAL BREATHING PATTERN. a bsent: Decreased Breath Sounds, Wheezes - Cardiovascular Exam Cardiovascular Exam: +S1, +S2 - GI/Abdominal Exam GI & Abdominal Exam: Normal Bowel Sounds, Soft. absent: Distended, Tenderness - Extremities Exam Extremities exam: Positive for: pedal pulses present. Negative for: pedal edema, tenderness - Neurological Exam Neurological exam: Alert, CN II-XII Intact, Oriented x3 - Psychiatric Exam Psychiatric exam: Normal Affect, Normal Mood - Skin Skin Exam: Dry, Intact, Normal Color, Warm Results - Vital Signs Recent Vital Signs: Last Vital Signs Temp 98.7 F 06/26/18 08:04 Pulse 75 06/26/18 08:04 Resp 20 06/26/18 08:04 BP 147/67 06/26/18 08:04 Pulse Ox 98 06/26/18 08:04 - Labs Result Diagrams: 06/26/18 06:40 06/26/18 06:40 Labs: Laboratory Results - last 24 hr 06/25/18 06/25/18 06/26/18 16:16 21:06 06:40 WBC 8.6 RBC 4.28 Hgb 10.5 L Hct 32.8 L MCV 76.7 L MCH 24.6 L MCHC 32.0 L RDW 14.4 Plt Count 413 H MPV 7.7 Neut % (Auto) 62.2 Lymph % (Auto) 18.1 L Hyde % (Auto) 14.5 H Eos % (Auto) 4.4 H Baso % (Auto) 0.8 Neut # (Auto) 5.3 Lymph # (Auto) 1.6 Hyde # (Auto) 1.2 H Eos # (Auto) 0.4 Baso # (Auto) 0.1 Sodium Potassium Chloride Carbon Dioxide Anion Gap BUN Creatinine Est GFR ( Amer) Est GFR (Non-Af Amer) POC Glucose (mg/dL) 216 H 188 H Random Glucose Calcium Total Bilirubin AST ALT Alkaline Phosphatase Total Protein Albumin Globulin Albumin/Globulin Ratio 06/26/18 06/26/18 06/26/18 06:40 07:32 11:21 WBC RBC Hgb Hct MCV MCH MCHC RDW Plt Count MPV Neut % (Auto) Lymph % (Auto) Hyde % (Auto) Eos % (Auto) Baso % (Auto) Neut # (Auto) Lymph # (Auto) Hyde # (Auto) Eos # (Auto) Baso # (Auto) Sodium 140 Potassium 3.6 Chloride 106 Carbon Dioxide 28 Anion Gap 10 BUN 6 L Creatinine 1.0 Est GFR ( Amer) > 60 Est GFR (Non-Af Amer) 55 POC Glucose (mg/dL) 95 199 H Random Glucose 107 H Calcium 8.6 Total Bilirubin 0.3 AST 13 L ALT 19 Alkaline Phosphatase 83 Total Protein 6.6 Albumin 3.1 L Globulin 3.5 Albumin/Globulin Ratio 0.9 L Assessment & Plan - Assessment and Plan (Free Text) Plan: Peripheral Vascular Disease Comorbidities: Hypertension, Type 2 DM, CAD with CABG Imaging: - EKG: ordered, will review - ECHO 10/2017: normal LVEF Management: - Stress Test scheduled for Sunday, 06/28 - Carotid dopplers to assess for any stenosis: ordered, pending results Case discussed with Sanna Velasquez DO, PGY2 <Humza Stroud - Last Filed: 06/26/18 19:23> Meds - Medications Medications: Current Medications Amlodipine Besylate (Norvasc) 10 mg PO DAILY [facility] Last Admin: 06/26/18 11:16 Dose: 10 mg Apixaban (Eliquis) 2.5 mg PO BID [facility] Last Admin: 06/26/18 17:39 Dose: 2.5 mg Clopidogrel Bisulfate (Plavix) 75 mg PO DAILY [facility] Last Admin: 06/26/18 11:16 Dose: 75 mg Dextrose (Dextrose 50% Inj) 0 ml IV STAT PRN; Protocol PRN Reason: Hypoglycemia Protocol Dextrose (Glutose 15) 0 gm PO ONCE PRN; Protocol PRN Reason: Hypoglycemia Protocol Donepezil HCl (Aricept) 5 mg PO DAILY [facility] Last Admin: 06/26/18 11:16 Dose: 5 mg Gabapentin (Neurontin) 400 mg PO BID [facility] Last Admin: 06/26/18 17:41 Dose: 400 mg Glucagon (Glucagen Diagnostic Kit) 0 mg IM STAT PRN; Protocol PRN Reason: Hypoglycemia Protocol Piperacillin Sod/Tazobactam (Sod 3.375 gm/ Sodium Chloride) 100 mls @ 200 mls/hr IVPB Q6H [facility]; Protocol Last Admin: 06/26/18 17:38 Dose: 200 mls/hr Dextrose (Dextrose 5% In Water 1000 Ml) 1,000 mls @ 0 mls/hr IV .Q0M PRN; Protocol PRN Reason: Hypoglycemia Protocol Insulin Aspart (Novolog) 0 unit SC ACHS [facility]; Protocol Last Admin: 06/26/18 16:30 Dose: 2 units Insulin Detemir (Levemir) 15 unit SC QPM [facility] Last Admin: 06/26/18 17:40 Dose: 15 u Insulin Human Regular (Novolin R) 4 unit SC AC [facility] Last Admin: 06/26/18 16:30 Dose: 4 units Losartan Potassium (Cozaar) 100 mg PO DAILY [facility] Last Admin: 06/26/18 11:16 Dose: 100 mg Nystatin (Nystop Topical Powder) 2 gm TOP TID [facility] Last Admin: 06/26/18 17:43 Dose: 1 applic Rosuvastatin Calcium (Crestor) 10 mg PO HS [facility] Saccharomyces Boulardii (Florastor) 250 mg PO BID [facility] Last Admin: 06/26/18 17:39 Dose: 250 mg Results - Vital Signs Recent Vital Signs: Last Vital Signs Temp 98.0 F 06/26/18 16:00 Pulse 74 06/26/18 16:00 Resp 20 06/26/18 16:00 BP 126/72 06/26/18 16:00 Pulse Ox 99 06/26/18 16:00 - Labs Result Diagrams: 06/26/18 06:40 06/26/18 06:40 Labs: Laboratory Results - last 24 hr 06/25/18 06/26/18 06/26/18 21:06 06:40 06:40 WBC 8.6 RBC 4.28 Hgb 10.5 L Hct 32.8 L MCV 76.7 L MCH 24.6 L MCHC 32.0 L RDW 14.4 Plt Count 413 H MPV 7.7 Neut % (Auto) 62.2 Lymph % (Auto) 18.1 L Hyde % (Auto) 14.5 H Eos % (Auto) 4.4 H Baso % (Auto) 0.8 Neut # (Auto) 5.3 Lymph # (Auto) 1.6 Hyde # (Auto) 1.2 H Eos # (Auto) 0.4 Baso # (Auto) 0.1 Sodium 140 Potassium 3.6 Chloride 106 Carbon Dioxide 28 Anion Gap 10 BUN 6 L Creatinine 1.0 Est GFR ( Amer) > 60 Est GFR (Non-Af Amer) 55 POC Glucose (mg/dL) 188 H Random Glucose 107 H Calcium 8.6 Total Bilirubin 0.3 AST 13 L ALT 19 Alkaline Phosphatase 83 Total Protein 6.6 Albumin 3.1 L Globulin 3.5 Albumin/Globulin Ratio 0.9 L 06/26/18 06/26/18 06/26/18 07:32 11:21 16:36 WBC RBC Hgb Hct MCV MCH MCHC RDW Plt Count MPV Neut % (Auto) Lymph % (Auto) Hyde % (Auto) Eos % (Auto) Baso % (Auto) Neut # (Auto) Lymph # (Auto) Hyde # (Auto) Eos # (Auto) Baso # (Auto) Sodium Potassium Chloride Carbon Dioxide Anion Gap BUN Creatinine Est GFR ( Amer) Est GFR (Non-Af Amer) POC Glucose (mg/dL) 95 199 H 217 H Random Glucose Calcium Total Bilirubin AST ALT Alkaline Phosphatase Total Protein Albumin Globulin Albumin/Globulin Ratio Assessment & Plan - Assessment and Plan (Free Text) Plan: Patient seen and evaluated personally by me. Plan of care d/w the medical administrator and as documented
--- NOTE | 2018-06-26 16:14 | CP.PCM.PN ---
Subjective - Date & Time of Evaluation Date of Evaluation: 06/26/18 Time of Evaluation: 16:11 - Subjective Subjective: Podiatry Progress Note for Dr. Smart 73F seen for infected right foot heel wound and left heel callous. Patient is AAO x 3 at time of visit. Continues to have pain to her right heel. Denies any further pedal complaints at this time. Denies any recent N/V/CP/SOB/D. Multipodus boots are seen to be in place at this time. Objective - Vital Signs/Intake and Output Vital Signs (last 24 hours): Temp Pulse Resp BP Pulse Ox 98.7 F 75 20 147/67 98 06/26/18 08:04 06/26/18 08:04 06/26/18 08:04 06/26/18 08:04 06/26/18 08:04 Intake and Output: 06/26/18 06/26/18 06:59 18:59 Intake Total 740 Balance 740 - Medications Medications: Current Medications Amlodipine Besylate (Norvasc) 10 mg PO DAILY [facility] Last Admin: 06/26/18 11:16 Dose: 10 mg Apixaban (Eliquis) 2.5 mg PO BID [facility] Last Admin: 06/26/18 11:16 Dose: 2.5 mg Clopidogrel Bisulfate (Plavix) 75 mg PO DAILY [facility] Last Admin: 06/26/18 11:16 Dose: 75 mg Dextrose (Dextrose 50% Inj) 0 ml IV STAT PRN; Protocol PRN Reason: Hypoglycemia Protocol Dextrose (Glutose 15) 0 gm PO ONCE PRN; Protocol PRN Reason: Hypoglycemia Protocol Donepezil HCl (Aricept) 5 mg PO DAILY [facility] Last Admin: 06/26/18 11:16 Dose: 5 mg Gabapentin (Neurontin) 400 mg PO BID [facility] Last Admin: 06/26/18 11:20 Dose: 400 mg Glucagon (Glucagen Diagnostic Kit) 0 mg IM STAT PRN; Protocol PRN Reason: Hypoglycemia Protocol Piperacillin Sod/Tazobactam (Sod 3.375 gm/ Sodium Chloride) 100 mls @ 200 mls/hr IVPB Q6H [facility]; Protocol Last Admin: 06/26/18 11:21 Dose: 200 mls/hr Dextrose (Dextrose 5% In Water 1000 Ml) 1,000 mls @ 0 mls/hr IV .Q0M PRN; Protocol PRN Reason: Hypoglycemia Protocol Insulin Aspart (Novolog) 0 unit SC ACHS [facility]; Protocol Last Admin: 06/26/18 12:00 Dose: 1 units Insulin Detemir (Levemir) 15 unit SC QPM [facility] Last Admin: 06/25/18 18:00 Dose: 15 u Insulin Human Regular (Novolin R) 4 unit SC AC [facility] Last Admin: 06/26/18 12:01 Dose: 4 units Losartan Potassium (Cozaar) 100 mg PO DAILY [facility] Last Admin: 06/26/18 11:16 Dose: 100 mg Nystatin (Nystop Topical Powder) 2 gm TOP TID [facility] Last Admin: 06/26/18 14:44 Dose: Not Given Rosuvastatin Calcium (Crestor) 10 mg PO HS [facility] Saccharomyces Boulardii (Florastor) 250 mg PO BID [facility] - Labs Labs: 06/26/18 06:40 06/26/18 06:40 PT 13.2 SECONDS (9.7-12.2) H 06/22/18 18:55 INR 1.2 06/22/18 18:55 APTT 36 SECONDS (21-34) H 06/22/18 18:55 - Constitutional Appears: Well, Non-toxic, No Acute Distress - Extremities Exam Additional comments: RLE focused exam: VASC: DP and PT non-palpable to the right lower extremity, CFT < 3 seconds to all digits. TG cool to cool R > L, with minimal edema noted to dorsum of both feet NEURO: Epicritic and protective sensation grossly intact b/l DERM: xerosis noted to bilateral feet Left- small area of pre-ulcerative lesion noted to the plantar aspect of the left heel, no drainage, no probe to bone, no tunneling, no malodor Right- No blistering or purulence appreciated today. Heel wound with fi bronecrotic base and no probe to bone, tracking, tunneling or undermining noted. ORTHO: significant pain on palpation to the right heel - Neurological Exam Neurological Exam: Alert, Awake, Oriented x3 - Psychiatric Exam Psychiatric exam: Normal Affect, Normal Mood Assessment and Plan - Assessment and Plan (Free Text) Assessment: 73F seen for infected right foot heel wound and left heel callous Plan: Patient seen and evaluated with Dr. Smart Afebrile, absent leukocytosis Continue IV abx per ID Wound cx: Staph Aureus R foot xray:Soft tissue ulceration seen overlying the posterior calcaneus. No evidence of gross cortical irregularity at the level of the calcaneus to suggest an acute osteomyelitis. If there is concern for acute osteomyelitis, consider correlation with MRI. LE MRI: Prominent soft tissue ulceration/defect seen within the medial subcutaneous soft tissues at the level of the posterior heel. Reticulation and edema within the adjacent soft tissues. At that level, within the medial cortex of the posterior calcaneus, there is some mild increased STIR signal without gross corresponding decreased T1 signal as demonstrated on series 5, images 16- 18 as well as series 7 images 5-8. These changes likely do not represent a gross acute osteomyelitis; however, an early acute and or developing acute osteomy elitis cannot entirely be excluded. Continued interval follow-up and or correlation with three-phase bone scan may be helpful if indicated. Triple phase bone scan: Positive for acute osseous process to right calcaneus Wound dressed with Xeroform, DSD No plan for surgical intervention at this time, per Dr. Smart treat with [facility] IV abx Continue offloading boots at all times Podiatry will continue to follow while patient in house
[2018-06-26] MEDS: Saccharomyces Boulardi 250 mg Cap PO SCH (17:39)
[2018-06-26] MEDS: Insulin Detemir 100 units/ml Vial (Levemir) SC SCH (17:40)
--- NOTE | 2018-06-26 19:50 | CP.PCM.PN ---
Subjective - Date & Time of Evaluation Date of Evaluation: 06/26/18 Time of Evaluation: 09:00 - Subjective Subjective: MRI + OM right foot MSSA from wound Objective - Vital Signs/Intake and Output Vital Signs (last 24 hours): Temp Pulse Resp BP Pulse Ox 98.0 F 74 20 126/72 99 06/26/18 16:00 06/26/18 16:00 06/26/18 16:00 06/26/18 16:00 06/26/18 16:00 Intake and Output: 06/26/18 06/27/18 18:59 06:59 Intake Total 400 Balance 400 - Medications Medications: Current Medications Amlodipine Besylate (Norvasc) 10 mg PO DAILY [facility] Last Admin: 06/26/18 11:16 Dose: 10 mg Apixaban (Eliquis) 2.5 mg PO BID [facility] Last Admin: 06/26/18 17:39 Dose: 2.5 mg Clopidogrel Bisulfate (Plavix) 75 mg PO DAILY [facility] Last Admin: 06/26/18 11:16 Dose: 75 mg Dextrose (Dextrose 50% Inj) 0 ml IV STAT PRN; Protocol PRN Reason: Hypoglycemia Protocol Dextrose (Glutose 15) 0 gm PO ONCE PRN; Protocol PRN Reason: Hypoglycemia Protocol Donepezil HCl (Aricept) 5 mg PO DAILY [facility] Last Admin: 06/26/18 11:16 Dose: 5 mg Gabapentin (Neurontin) 400 mg PO BID [facility] Last Admin: 06/26/18 17:41 Dose: 400 mg Glucagon (Glucagen Diagnostic Kit) 0 mg IM STAT PRN; Protocol PRN Reason: Hypoglycemia Protocol Piperacillin Sod/Tazobactam (Sod 3.375 gm/ Sodium Chloride) 100 mls @ 200 mls/hr IVPB Q6H [facility]; Protocol Last Admin: 06/26/18 17:38 Dose: 200 mls/hr Dextrose (Dextrose 5% In Water 1000 Ml) 1,000 mls @ 0 mls/hr IV .Q0M PRN; Protocol PRN Reason: Hypoglycemia Protocol Insulin Aspart (Novolog) 0 unit SC ACHS [facility]; Protocol Last Admin: 06/26/18 16:30 Dose: 2 units Insulin Detemir (Levemir) 15 unit SC QPM [facility] Last Admin: 06/26/18 17:40 Dose: 15 u Insulin Human Regular (Novolin R) 4 unit SC AC [facility] Last Admin: 06/26/18 16:30 Dose: 4 units Losartan Potassium (Cozaar) 100 mg PO DAILY [facility] Last Admin: 06/26/18 11:16 Dose: 100 mg Nystatin (Nystop Topical Powder) 2 gm TOP TID [facility] Last Admin: 06/26/18 17:43 Dose: 1 applic Rosuvastatin Calcium (Crestor) 10 mg PO HS [facility] Saccharomyces Boulardii (Florastor) 250 mg PO BID [facility] Last Admin: 06/26/18 17:39 Dose: 250 mg - Labs Labs: 06/26/18 06:40 06/26/18 06:40 PT 13.2 SECONDS (9.7-12.2) H 06/22/18 18:55 INR 1.2 06/22/18 18:55 APTT 36 SECONDS (21-34) H 06/22/18 18:55 - Constitutional Appears: Confused, Cachectic, Chronically Ill - Head Exam Head Exam: NORMOCEPHALIC - Eye Exam Eye Exam: absent: Scleral icterus - ENT Exam ENT Exam: Mucous Membranes Dry - Neck Exam Neck Exam: absent: Lymphadenopathy - Respiratory Exam Respiratory Exam: Decreased Breath Sounds - Cardiovascular Exam Cardiovascular Exam: REGULAR RHYTHM - GI/Abdominal Exam GI & Abdominal Exam: Distended, Soft - Rectal Exam Rectal Exam: Deferred - Extremities Exam Extremities Exam: Pedal Edema, Tenderness. absent: Calf Tenderness - Back Exam Back Exam: absent: CVA tenderness (L), CVA tenderness (R) - Neurological Exam Neurological Exam: Altered - Psychiatric Exam Psychiatric exam: Depressed - Skin Skin Exam: Dry Assessment and Plan - Assessment and Plan (Free Text) Assessment: cont rx OM wound care poor prognosis
[2018-06-27] MEDS: Piperacillin/Tazobact 3.375 GM in Sodium Chloride 100 ML IVPB SCH ×4 (00:15→17:30)
[2018-06-27 06:58] LABS: BASO # 0.1 K/uL (0.0-0.2); BASO % 1.1 % (0.0-2.0); EOS # 0.3 K/uL (0.0-0.7); EOS % 3.8 % (0.0-4.0); HEMOGLOBIN 9.9 g/dL (11.0-16.0); LYMPH # 1.8 K/uL (1.0-4.3); LYMPH % 21.3 % (20.0-40.0); MEAN CELL VOLUME 76.8 fL (81.0-99.0); MEAN CORPUSCULAR HEMOGLOBIN 24.8 pg (27.0-31.0); MEAN CORPUSCULAR HGB CONC 32.3 g/dL (33.0-37.0); MEAN PLATELET VOLUME 8.3 fL (7.2-11.7); MONO # 1.1 K/uL (0.0-0.8); NEUT # 5.2 K/uL (1.8-7.0); NEUT % 60.8 % (50.0-75.0); RED CELL DISTRIBUTION WIDTH 14.5 % (11.5-14.5); WHITE BLOOD COUNT 8.6 K/uL (4.8-10.8)
[2018-06-27 07:19] LABS: LDL CHOLESTEROL 99 mg/dL (0-129)
[2018-06-27 07:24] LABS: INR 1.2; PROTHROMBIN TIME 13.4 SECONDS (9.7-12.2)
[2018-06-27] MEDS: (Novolog) Insulin Aspart, Recombinant 100 u/ml 10 ml vial SC SCH ×4 (07:56→21:47)
[2018-06-27] MEDS: (Novolin R) Insulin Human Regular 100 units/ml vial SC SCH ×3 (07:56→17:28)
[2018-06-27 08:02] LABS: ALB/GLOB RATIO 0.8 (1.0-2.1); ALBUMIN 2.9 g/dL (3.5-5.0); ALT/SGPT 13 U/L (9-52); AST/SGOT 14 U/L (14-36); BLOOD UREA NITROGEN 8 mg/dL (7-17); CALCIUM 8.3 mg/dl (8.6-10.4); GFR NON-AFRICAN AMERICAN 55; HDL CHOLESTEROL 16 mg/dL (30-70)
[2018-06-27] MEDS: Saccharomyces Boulardi 250 mg Cap PO SCH ×2 (10:01→17:27)
[2018-06-27] MEDS: Nystatin 100,000 Units/gm Topical Pow(15 gm) TOP SCH ×3 (10:02→17:31)
--- NOTE | 2018-06-27 16:03 | CP.PCM.PN ---
Subjective - Date & Time of Evaluation Date of Evaluation: 06/27/18 Time of Evaluation: 16:02 - Subjective Subjective: Podiatry Progress Note for Dr. Smart 73F seen for infected right foot heel wound and left heel callous. Patient is AAO x 3 at time of visit. Continues to have pain to her right heel. Denies any further pedal complaints at this time. Denies any recent N/V/CP/SOB/D. Multipodus boots are seen to be in place at this time. Objective - Vital Signs/Intake and Output Vital Signs (last 24 hours): Temp Pulse Resp BP Pulse Ox 98.1 F 68 20 131/64 96 06/27/18 08:08 06/27/18 08:08 06/27/18 08:08 06/27/18 08:08 06/27/18 08:08 Intake and Output: 06/27/18 06/27/18 06:59 18:59 Intake Total 700 400 Output Total 500 Balance 200 400 - Medications Medications: Current Medications Amlodipine Besylate (Norvasc) 10 mg PO DAILY [facility] Last Admin: 06/27/18 10:02 Dose: 10 mg Apixaban (Eliquis) 2.5 mg PO BID [facility] Last Admin: 06/27/18 10:01 Dose: 2.5 mg Clopidogrel Bisulfate (Plavix) 75 mg PO DAILY [facility] Last Admin: 06/27/18 10:01 Dose: 75 mg Dextrose (Dextrose 50% Inj) 0 ml IV STAT PRN; Protocol PRN Reason: Hypoglycemia Protocol Dextrose (Glutose 15) 0 gm PO ONCE PRN; Protocol PRN Reason: Hypoglycemia Protocol Donepezil HCl (Aricept) 5 mg PO DAILY [facility] Last Admin: 06/27/18 10:01 Dose: 5 mg Gabapentin (Neurontin) 400 mg PO BID [facility] Last Admin: 06/27/18 10:02 Dose: 400 mg Glucagon (Glucagen Diagnostic Kit) 0 mg IM STAT PRN; Protocol PRN Reason: Hypoglycemia Protocol Piperacillin Sod/Tazobactam (Sod 3.375 gm/ Sodium Chloride) 100 mls @ 200 mls/hr IVPB Q6H [facility]; Protocol Last Admin: 06/27/18 11:28 Dose: 200 mls/hr Dextrose (Dextrose 5% In Water 1000 Ml) 1,000 mls @ 0 mls/hr IV .Q0M PRN; Protocol PRN Reason: Hypoglycemia Protocol Insulin Aspart (Novolog) 0 unit SC ACHS [facility]; Protocol Last Admin: 06/27/18 11:54 Dose: 1 units Insulin Detemir (Levemir) 15 unit SC QPM [facility] Last Admin: 06/26/18 17:40 Dose: 15 u Insulin Human Regular (Novolin R) 4 unit SC AC [facility] Last Admin: 06/27/18 11:53 Dose: 4 units Losartan Potassium (Cozaar) 100 mg PO DAILY [facility] Last Admin: 06/27/18 10:01 Dose: 100 mg Nystatin (Nystop Topical Powder) 2 gm TOP TID [facility] Last Admin: 06/27/18 13:11 Dose: 1 applic Rosuvastatin Calcium (Crestor) 10 mg PO HS [facility] Last Admin: 06/26/18 21:52 Dose: 10 mg Saccharomyces Boulardii (Florastor) 250 mg PO BID [facility] Last Admin: 06/27/18 10:01 Dose: 250 mg - Labs Labs: 06/27/18 06:48 06/27/18 06:48 PT 13.4 SECONDS (9.7-12.2) H 06/27/18 06:48 INR 1.2 06/27/18 06:48 APTT 30 SECONDS (21-34) 06/27/18 06:48 - Constitutional Appears: Well, Non-toxic - Head Exam Head Exam: ATRAUMATIC - Extremities Exam Additional comments: Dressing clean, dry and intact. Multipodus boots on. RLE focused exam: VASC: DP and PT non-palpable to the right lower extremity, CFT < 3 seconds to all digits. TG cool to cool R > L, with minimal edema noted to dorsum of both feet NEURO: Epicritic and protective sensation grossly intact b/l DERM: xerosis noted to bilateral feet Left- small area of pre-ulcerative lesion noted to the plantar aspect of the left heel, no drainage, no probe to bone, no tunneling, no malodor Right- No blistering or purulence appreciated today. Heel wound with fibronecrotic base and no probe to bone, tracking, tunneling or undermining noted. ORTHO: significant pain on palpation to the right heel Assessment and Plan - Assessment and Plan (Free Text) Assessment: 73F seen for infected right foot heel wound and left heel callous Plan: Patient seen and evaluated with Dr. Smart Afebrile, absent leukocytosis Continue IV abx per ID Wound cx: Staph Aureus R foot xray:Soft tissue ulceration seen overlying the posterior calcaneus. No evidence of gross cortical irregularity at the level of the calcaneus to suggest an acute osteomyelitis. If there is concern for acute osteomyelitis, consider correlation with MRI. LE MRI: Prominent soft tissue ulceration/defect seen within the medial subcutaneous soft tissues at the level of the posterior heel. Reticulation and edema within the adjacent soft tissues. At that level, within the medial cortex of the posterior calcaneus, there is some mild increased STIR signal without gross corresponding decreased T1 signal as demonstrated on series 5, images 16- 18 as well as series 7 images 5-8. These changes likely do not represent a gross acute osteomyelitis; however, an early acute and or developing acute osteomyelitis cannot entirely be excluded. Continued interval follow-up and or correlation with three-phase bone scan may be helpful if indicated. Triple phase bone scan: Positive for acute osseous process to right calcaneus Dressing clean, dry and intact. No plan for surgical intervention at this time, per Dr. Smart treat with assisted IV abx Continue offloading boots at all times Podiatry will continue to follow while patient in house
[2018-06-27] MEDS: Insulin Detemir 100 units/ml Vial (Levemir) SC SCH (17:27)
[2018-06-28] MEDS: Piperacillin/Tazobact 3.375 GM in Sodium Chloride 100 ML IVPB SCH ×3 (00:19→17:44)
[2018-06-28 07:25] LABS: BASO % 0.6 % (0.0-2.0); EOS # 0.4 K/uL (0.0-0.7); EOS % 4.2 % (0.0-4.0); HEMOGLOBIN 10.2 g/dL (11.0-16.0); LYMPH # 1.9 K/uL (1.0-4.3); MEAN CELL VOLUME 76.4 fL (81.0-99.0); MEAN CORPUSCULAR HEMOGLOBIN 24.8 pg (27.0-31.0); MEAN CORPUSCULAR HGB CONC 32.4 g/dL (33.0-37.0); MEAN PLATELET VOLUME 8.2 fL (7.2-11.7); MONO % 11.8 % (0.0-10.0); NEUT # 5.4 K/uL (1.8-7.0); NEUT % 61.4 % (50.0-75.0); RBC 4.13 Mil/uL (3.80-5.20); RED CELL DISTRIBUTION WIDTH 14.5 % (11.5-14.5); WHITE BLOOD COUNT 8.8 K/uL (4.8-10.8)
[2018-06-28] MEDS: (Novolin R) Insulin Human Regular 100 units/ml vial SC SCH ×3 (07:42→16:30)
[2018-06-28] MEDS: (Novolog) Insulin Aspart, Recombinant 100 u/ml 10 ml vial SC SCH ×4 (07:42→21:37)
[2018-06-28 07:56] LABS: ALB/GLOB RATIO 0.8 (1.0-2.1); ALBUMIN 3.1 g/dL (3.5-5.0); ALT/SGPT 16 U/L (9-52); AST/SGOT 17 U/L (14-36); BLOOD UREA NITROGEN 6 mg/dL (7-17); CALCIUM 8.6 mg/dl (8.6-10.4); GFR NON-AFRICAN AMERICAN > 60
[2018-06-28] MEDS ORDERED: Vancomycin 1 gm/NS 200 ml 1 GM/200 ML BAG IVPB SCH (08:00)
[2018-06-28] MEDS ORDERED: Piperacillin/Tazobact 3.375 GM in Sodium Chloride 100 ML IVPB SCH (08:30)
[2018-06-28] MEDS ORDERED: Caffeine Citrated **INJ** 20 MG/ML IV ONE (08:50)
--- NOTE | 2018-06-28 09:21 | CP.PCM.PN ---
Subjective - Date & Time of Evaluation Date of Evaluation: 06/28/18 Time of Evaluation: 09:20 - Subjective Subjective: PGY3 note for Dr. Miranda Patient seen and examined at bedside this AM; denies all complaints admits to no symptoms. Objective - Vital Signs/Intake and Output Vital Signs (last 24 hours): Temp Pulse Resp BP Pulse Ox 98.3 F 81 18 118/76 98 06/27/18 23:00 06/27/18 23:00 06/27/18 23:00 06/27/18 23:00 06/27/18 23:00 Intake and Output: 06/28/18 06/28/18 06:59 18:59 Intake Total 100 100 Balance 100 100 - Medications Medications: Current Medications Amlodipine Besylate (Norvasc) 10 mg PO DAILY [facility] Last Admin: 06/27/18 10:02 Dose: 10 mg Apixaban (Eliquis) 2.5 mg PO BID [facility] Last Admin: 06/27/18 17:27 Dose: 2.5 mg Clopidogrel Bisulfate (Plavix) 75 mg PO DAILY [facility] Last Admin: 06/27/18 10:01 Dose: 75 mg Dextrose (Dextrose 50% Inj) 0 ml IV STAT PRN; Protocol PRN Reason: Hypoglycemia Protocol Dextrose (Glutose 15) 0 gm PO ONCE PRN; Protocol PRN Reason: Hypoglycemia Protocol Donepezil HCl (Aricept) 5 mg PO DAILY [facility] Last Admin: 06/27/18 10:01 Dose: 5 mg Gabapentin (Neurontin) 400 mg PO BID [facility] Last Admin: 06/27/18 17:28 Dose: 400 mg Glucagon (Glucagen Diagnostic Kit) 0 mg IM STAT PRN; Protocol PRN Reason: Hypoglycemia Protocol Dextrose (Dextrose 5% In Water 1000 Ml) 1,000 mls @ 0 mls/hr IV .Q0M PRN; Protocol PRN Reason: Hypoglycemia Protocol Vancomycin/Sodium Chloride (Vancomycin 1 Gm/Ns 200 Ml) 1 gm in 200 mls @ 133 mls/hr IVPB Q24H [facility]; Protocol Stop: 07/03/18 11:01 Piperacillin Sod/Tazobactam (Sod 3.375 gm/ Sodium Chloride) 100 mls @ 200 mls/hr IVPB Q8H [facility]; Protocol Insulin Aspart (Novolog) 0 unit SC ACHS [facility]; Protocol Last Admin: 06/28/18 07:42 Dose: Not Given Insulin Detemir (Levemir) 15 unit SC QPM [facility] Last Admin: 06/27/18 17:27 Dose: 15 u Insulin Human Regular (Novolin R) 4 unit SC AC [facility] Last Admin: 06/28/18 07:42 Dose: Not Given Losartan Potassium (Cozaar) 100 mg PO DAILY [facility] Last Admin: 06/27/18 10:01 Dose: 100 mg Nystatin (Nystop Topical Powder) 2 gm TOP TID [facility] Last Admin: 06/27/18 17:31 Dose: 1 applic Rosuvastatin Calcium (Crestor) 10 mg PO HS [facility] Last Admin: 06/27/18 21:46 Dose: 10 mg Saccharomyces Boulardii (Florastor) 250 mg PO BID [facility] Last Admin: 06/27/18 17:27 Dose: 250 mg - Labs Labs: 06/28/18 07:15 06/28/18 07:15 PT 13.4 SECONDS (9.7-12.2) H 06/27/18 06:48 INR 1.2 06/27/18 06:48 APTT 30 SECONDS (21-34) 06/27/18 06:48 - Constitutional Appears: Non-toxic - Head Exam Head Exam: ATRAUMATIC - Eye Exam Eye Exam: EOMI - Neck Exam Neck Exam: Full ROM - Respiratory Exam Respiratory Exam: Clear to Ausculation Bilateral - Cardiovascular Exam Cardiovascular Exam: REGULAR RHYTHM - GI/Abdominal Exam GI & Abdominal Exam: Soft - Extremities Exam Extremities Exam: absent: Calf Tenderness - Neurological Exam Neurological Exam: Awake - Psychiatric Exam Psychiatric exam: Normal Affect - Skin Skin Exam: Warm Assessment and Plan - Assessment and Plan (Free Text) Assessment: 73 year old female admitted 06/22/18 for non healing right heel wound with osteomyelitis. R Heel Wound; osteomyelitis - Afebrile, absent leukocytosis - ID Consult: Dr. Dominguez --> help appreciated - Vascular Consult: Dr. Mcdonald --> help appreciated - Podiatry Consult: Dr. Smart --> help appreciated - per podiatry no surgical intervention at this time - Images: * Right Foot Xray: Soft tissue ulceration seen overlying the posterior calcaneus. No evidence of gross cortical irregularity at the level of the calcaneus to suggest an acute osteomyelitis. If there is concern for acute osteomyelitis, consider correlation with MRI. Diffuse osteopenia. Dorsal soft tissue swelling at the level of the midfoot Hallux valgus deformity. * Lower Extremity US: Negative * Lower Extremity MRI: Prominent soft tissue ulceration/defect seen within the medial subcutaneous soft tissues at the level of the posterior heel. Reticulation and edema within the adjacent soft tissues. At that level, within the medial cortex of the posterior calcaneus, there is some mild increased STIR signal without gross corresponding decreased T1 signal as demonstrated on series 5, images 16-18 as well as series 7 images 5-8. These changes likely do not represent a gross acute osteomyelitis; however, an early acute and or developing acute osteomyelitis cannot entirely be excluded. Continued interval follow-up and or correlation with three-phase bone scan may be helpful if indicated. - f/u blood cultures; negative to date - Wound culture: Staph Aureus - Medications: * Zosyn 3.375 Q6H (started on 06/28/18), Vanco 06/28, patient will need 6-8 week course of IV abx. to end 08/07/18 * Florastor 250mg bid * no surgical intervention as per podiatry PT is recommending [facility]; will talk with case management for placement History of HTN - ECHO (10/19/17): EF 59%; the left ventricle is normal in size; normal left ventricular wall thickness; left ventricle function is normal; normal LV segmental wall motion - Chest Xray: Satisfactory position of recently placed PICC line. No pneumothorax. Atelectasis at the lung bases particularly on the right. - f/u EKG - Medications: * Amlodipine 10mg daily * Losartan 100mg po daily History of PAD - Extremity Venous Study: Right: Diameter measurements of the right greater saphenous vein are measured between 0.32 cm and 0.64 cm and lesser saphenous vein is measured between 0.28 cm and 0.42 cm. Left: Diameter measurements of the left lesser saphenous vein is measured between 0.22 cm and 0.55 cm. The left greater saphenous vein has been previously removed. - Abdominal Angiography: There is poor opacification of right and left lower extremities which limits their evaluation. Please see full report. - Vascular Consult: Dr. Mcdonald --> help appreciated - Plan for right lower extremity bypass; - Pending cardiac clearance - Cardiology Consult: Dr. Stroud --> help appreciated - Stress test Sunday06/28/18 - Medications - medications will need to be help prior to surgical procedure * Eliquis 2.5mg BID * Plavix 75mg daily History of CAD - f/u lipid panel - Medications - medications will need to be help prior to surgical procedure * Eliquis 2.5mg BID * Plavix 75mg daily * Crestor 10mg HS History of Diabetes type II - f/u hA1c - Hypoglycemia Protocol - Accuchecks - Medications: * Levemir 15units SC QPM * Novolin R 4 units SC AC * Novolog * Losartan 100mg po daily History of Neuropathy - Gabapentin 400mg bid History of Dementia - Donepizil 5mg daily Prophylaxis - Eliquis 2.5mg bid - GI prophylaxis not indicated - Florastor 250mg bid - PT/OT/Speech eval Case discussed and seen with Dr. Miranda
--- NOTE | 2018-06-28 10:26 | CP.PCM.PN ---
<Sanna Salazar - Last Filed: 06/28/18 12:50> Subjective - Date & Time of Evaluation Date of Evaluation: 06/28/18 Time of Evaluation: 10:00 - Subjective Subjective: Cardiology Follow Up Note Patient was seen and examined at bedside. Patient reports she feels well today. Denied any chest pain, shortness of breath, or palpitations. She underwent the first part of the Lexiscan - asymptomatic. Objective - Vital Signs/Intake and Output Vital Signs (last 24 hours): Temp Pulse Resp BP Pulse Ox 98.3 F 81 18 118/76 98 06/27/18 23:00 06/27/18 23:00 06/27/18 23:00 06/27/18 23:00 06/27/18 23:00 Intake and Output: 06/28/18 06/28/18 06:59 18:59 Intake Total 100 100 Balance 100 100 - Medications Medications: Current Medications Amlodipine Besylate (Norvasc) 10 mg PO DAILY [facility] Last Admin: 06/27/18 10:02 Dose: 10 mg Apixaban (Eliquis) 2.5 mg PO BID [facility] Last Admin: 06/27/18 17:27 Dose: 2.5 mg Clopidogrel Bisulfate (Plavix) 75 mg PO DAILY [facility] Last Admin: 06/27/18 10:01 Dose: 75 mg Dextrose (Dextrose 50% Inj) 0 ml IV STAT PRN; Protocol PRN Reason: Hypoglycemia Protocol Dextrose (Glutose 15) 0 gm PO ONCE PRN; Protocol PRN Reason: Hypoglycemia Protocol Donepezil HCl (Aricept) 5 mg PO DAILY [facility] Last Admin: 06/27/18 10:01 Dose: 5 mg Gabapentin (Neurontin) 400 mg PO BID [facility] Last Admin: 06/27/18 17:28 Dose: 400 mg Glucagon (Glucagen Diagnostic Kit) 0 mg IM STAT PRN; Protocol PRN Reason: Hypoglycemia Protocol Vancomycin/Sodium Chloride (Vancomycin 1 Gm/Ns 200 Ml) 1 gm in 200 mls @ 133 mls/hr IVPB Q24H [facility]; Protocol Stop: 07/03/18 11:01 Piperacillin Sod/Tazobactam (Sod 3.375 gm/ Sodium Chloride) 100 mls @ 200 mls/hr IVPB Q8H [facility]; Protocol Insulin Aspart (Novolog) 0 unit SC ACHS [facility]; Protocol Last Admin: 06/28/18 07:42 Dose: Not Given Insulin Detemir (Levemir) 15 unit SC QPM [facility] Last Admin: 06/27/18 17:27 Dose: 15 u Insulin Human Regular (Novolin R) 4 unit SC AC [facility] Last Admin: 06/28/18 07:42 Dose: Not Given Losartan Potassium (Cozaar) 100 mg PO DAILY [facility] Last Admin: 06/27/18 10:01 Dose: 100 mg Nystatin (Nystop Topical Powder) 2 gm TOP TID [facility] Last Admin: 06/27/18 17:31 Dose: 1 applic Rosuvastatin Calcium (Crestor) 10 mg PO HS [facility] Last Admin: 06/27/18 21:46 Dose: 10 mg Saccharomyces Boulardii (Florastor) 250 mg PO BID [facility] Last Admin: 06/27/18 17:27 Dose: 250 mg - Labs Labs: 06/28/18 07:15 06/28/18 07:15 PT 13.4 SECONDS (9.7-12.2) H 06/27/18 06:48 INR 1.2 06/27/18 06:48 APTT 30 SECONDS (21-34) 06/27/18 06:48 - Constitutional Appears: No Acute Distress - Head Exam Head Exam: NORMAL INSPECTION, NORMOCEPHALIC - Eye Exam Eye Exam: Normal appearance - ENT Exam ENT Exam: Mucous Membranes Moist - Respiratory Exam Respiratory Exam: Clear to Ausculation Bilateral, NORMAL BREATHING PATTERN. absent: Decreased Breath Sounds, Prolonged Expiratory Phase - Cardiovascular Exam Cardiovascular Exam: +S1, +S2 - GI/Abdominal Exam GI & Abdominal Exam: Soft, Normal Bowel Sounds. absent: Distended, Tenderness - Extremities Exam Extremities Exam: Normal Inspection. absent: Pedal Edema, Tenderness - Neurological Exam Neurological Exam: Alert, Awake, Oriented x3 - Psychiatric Exam Psychiatric exam: Normal Affect, Normal Mood - Skin Skin Exam: Dry, Intact, Normal Color, Warm Assessment and Plan - Assessment and Plan (Free Text) Plan: Peripheral Vascular Disease Comorbidities: Hypertension, Uncontrolled Type 2 DM, CAD with CABG Imaging: - EKG: NSR 67 BPM; unchanged from prior - ECHO 10/2017: normal LVEF Management: - Carotid dopplers to assess for any stenosis: ordered, pending results - Stress Test scheduled for today, 06/28 Case discussed with Sanna Velasquez DO, PGY2 <Humza Stroud - Last Filed: 06/28/18 20:41> Objective - Vital Signs/Intake and Output Vital Signs (last 24 hours): Temp Pulse Resp BP Pulse Ox 98.3 F 84 20 151/68 H 93 L 06/28/18 16:41 06/28/18 16:41 06/28/18 16:41 06/28/18 16:41 06/28/18 16:41 Intake and Output: 06/28/18 06/29/18 18:59 06:59 Intake Total 700 Balance 700 - Medications Medications: Current Medications Amlodipine Besylate (Norvasc) 10 mg PO DAILY [facility] Last Admin: 06/28/18 11:14 Dose: 10 mg Apixaban (Eliquis) 2.5 mg PO BID [facility] Last Admin: 06/28/18 17:42 Dose: 2.5 mg Clopidogrel Bisulfate (Plavix) 75 mg PO DAILY [facility] Last Admin: 06/28/18 11:14 Dose: 75 mg Dextrose (Dextrose 50% Inj) 0 ml IV STAT PRN; Protocol PRN Reason: Hypoglycemia Protocol Dextrose (Glutose 15) 0 gm PO ONCE PRN; Protocol PRN Reason: Hypoglycemia Protocol Donepezil HCl (Aricept) 5 mg PO DAILY [facility] Last Admin: 06/28/18 11:14 Dose: 5 mg Gabapentin (Neurontin) 400 mg PO BID [facility] Last Admin: 06/28/18 17:47 Dose: 400 mg Glucagon (Glucagen Diagnostic Kit) 0 mg IM STAT PRN; Protocol PRN Reason: Hypoglycemia Protocol Vancomycin/Sodium Chloride (Vancomycin 1 Gm/Ns 200 Ml) 1 gm in 200 mls @ 133 mls/hr IVPB Q24H [facility]; Protocol Stop: 07/03/18 11:01 Last Admin: 06/28/18 11:57 Dose: 133 mls/hr Piperacillin Sod/Tazobactam (Sod 3.375 gm/ Sodium Chloride) 100 mls @ 200 mls/hr IVPB Q8H [facility]; Protocol Last Admin: 06/28/18 17:44 Dose: 200 mls/hr Insulin Aspart (Novolog) 0 unit SC ACHS [facility]; Protocol Last Admin: 06/28/18 16:30 Dose: 1 units Insulin Detemir (Levemir) 15 unit SC QPM [facility] Last Admin: 06/27/18 17:27 Dose: 15 u Insulin Human Regular (Novolin R) 4 unit SC AC [facility] Last Admin: 06/28/18 16:30 Dose: 4 units Losartan Potassium (Cozaar) 100 mg PO DAILY [facility] Last Admin: 06/28/18 11:14 Dose: 100 mg Nystatin (Nystop Topical Powder) 2 gm TOP TID [facility] Last Admin: 06/28/18 17:42 Dose: 1 applic Rosuvastatin Calcium (Crestor) 10 mg PO HS [facility] Last Admin: 06/27/18 21:46 Dose: 10 mg Saccharomyces Boulardii (Florastor) 250 mg PO BID [facility] Last Admin: 06/28/18 17:42 Dose: 250 mg - Labs Labs: 06/28/18 07:15 06/28/18 07:15 PT 13.4 SECONDS (9.7-12.2) H 06/27/18 06:48 INR 1.2 06/27/18 06:48 APTT 30 SECONDS (21-34) 06/27/18 06:48 Assessment and Plan - Assessment and Plan (Free Text) Plan: Patient s/p stress test Normal EF No stress induced ischemia This patient assessed as moderate cardiac risk for foot surgery under general anaesthesia
[2018-06-28] MEDS: Saccharomyces Boulardi 250 mg Cap PO SCH ×2 (10:55→17:42)
[2018-06-28] MEDS: Nystatin 100,000 Units/gm Topical Pow(15 gm) TOP SCH ×3 (10:56→17:42)
[2018-06-28] MEDS: Vancomycin 1 gm/NS 200 ml 1 GM/200 ML BAG IVPB SCH (11:57)
--- NOTE | 2018-06-28 14:34 | CARD ---
APPROVED REPORT Date of service: 06/28/2018 Protocol: PHARMACOLOGICAL STRESS Test Type: LEXISCAN Test Indications: CARDIAC CLEARANCE Medications: LIST SCAN Medical History: HYPERTENSION, CARDIAC CLEARANCE Target HR: 148 bpm Resting ECG: normal Resting Heart Rate: 72 bpm Resting Blood Pressure: 130/60mmHg submaximum (85%): 126 bpm TEST SUMMARY [id number]/[id number]. INFUSIONDOSE 100:[id number]/60.0. [id number]/[id number]. PROCEDURE Pharmacologic stress testing was performed using 0.4mg per 5ml of regadenoson given intravenously over 7-10 seconds. POST EXERCISE Reason for Termination: Protocol Completed Target HR: No Max HR: 69 bpm 60% of Maximum Predicted HR: 148 bpm Exercise duration: 00:30 min:sec, 0 Stage Exercise capacity: 1.0METs Max Blood Pressure: 140/60mmHg Blood Pressure response to exercise: normal resting BP - appropriate response Heart Rate response to exercise: appropriate Chest Pain: No, none Angina index: 0 Arrhythmia: No, none ST Change: No, none Deviation: 0 mm INTERPRETATION Stress EKG Conclusion: Nuclear report to follow EXAM: Myocardial Perfusion REST/STRESS Imaging Protocol The imaging protocol used to acquire images was Rest Tc-99m/stress Tc-99m 1 day Rest Spect myocardial perfusion imaging was performed in supine position 40 minutes following the injection of 13.2 mCi of Tc-99 Myoview. Gated Stress Spect was performed 40 minutes after intravenous 33 mCi Tc-99 Myoview injection. The images were gated to evaluate regional wall motion and calculate ventricular ejection fraction.Images were reconstructed using backfilter projection method in short horizontal and verticle long axis. Spect slices were generated. RESTING DATA EDV44.20qsSC6.40L/min ESV7.00mlMyocardial Mass91.00g Av. Heart Rate65.00bpm EF84.00% STRESS DATA EDV39.84qyTU0.80L/min ESV3.00mlMyocardial Mass86.00g EF92.00% Regional WT score at stress:1.00 Regional WM score at stress:0.00 Summed WT score at stress:5.00 Av. Heart Rate79.00bpmSummed WM score at stress:0.00 LV Perf. Quant 17 Seg. SSS0.00 17 Seg. SRS0.00 17 Seg. SDS0.00 Stress Defect Extent (% LAD)0.00Rest Defect Extent (% LAD)0.00Rev. Defect Extent (% LAD)0.00 Stress Defect Extent (% LCX)0.00Rest Defect Extent (% LCX)0.00Rev. Defect Extent (% LCX)0.00 Stress Defect Extent (% RCA)0.00Rest Defect Extent (% RCA)0.00Rev. Defect Extent (% RCA)0.00 Stress Defect Extent (% SANDRA)0.00Rest Defect Extent (% SANDRA)0.00Rev. Defect Extent (% SANDRA)0.00 Other Information Quality:Good IMPRESSION Normal Myocardial Perfusion exercise stress study Left Ventricle LV Function:Left ventricle systolic function is normal. The Ejection Fraction is >70%. Metabolism/Perfusion There are no perfusion/metabolism defects. Conclusion 1. Normal Lexiscan Nuclear stress test. Normal EF
--- NOTE | 2018-06-28 14:35 | VASCLAB ---
Date of service: 06/26/2018 PROCEDURE: Carotid Duplex Exam. HISTORY: eval for any stenosis; htn, dm, PVD COMPARISON: None available. TECHNIQUE: Grayscale and duplex Doppler evaluation of the cervical carotid and vertebral arteries were performed. The common carotid, carotid bifurcations and cervical Internal Carotid Artery (ICA) and proximal External Carotid Artery (ECA) were evaluated. The vertebral arteries were evaluated for gross patency and flow direction. Report prepared by Benjamín Cruz, BS, RVT FINDINGS: RIGHT CAROTID ARTERIES: 1. Common Carotid Artery: No significant focal plaque formation of the right common carotid artery. Maximum Peak Systolic velocity: 79 cm/sec: End-diastolic velocity 12 cm/sec. 2. Carotid Bifurcation: plaque formation. Maximum Peak Systolic velocity: 84 cm/sec: End-diastolic velocity 15 cm/sec. 3. Internal Carotid Artery: Plaque description: 3.1. Proximal Segment: Peak systolic velocity 100 cm/sec: End-diastolic velocity 27 cm/sec - % stenosis 0-15% 3.2. Middle Segment: Peak systolic velocity 109 cm/sec: End-diastolic velocity 27 cm/sec - % stenosis 0-15% 3.3. Distal Segment: Peak systolic velocity 98 cm/sec: End-diastolic velocity 25 cm/sec - % stenosis 0-15% 4. External Carotid Artery: No significant focal plaque formation. Peak systolic velocity 115 cm/sec 5. ICA/CCA Ratio: 1.4 LEFT CAROTID ARTERIES: 1. Common Carotid Artery: No significant focal plaque formation of the left common carotid artery. Maximum Peak Systolic velocity: 82 cm/sec: End-diastolic velocity 0 cm/sec. 2. Carotid Bifurcation: plaque formation. Maximum Peak Systolic velocity: 102 cm/sec: End-diastolic velocity 0 cm/sec. 3. Internal Carotid Artery: Plaque description: 3.1. Proximal Segment: Peak systolic velocity 0 cm/sec: End-diastolic velocity 0 cm/sec - % stenosis [place] 3.2. Middle Segment: Peak systolic velocity 0 cm/sec: End-diastolic velocity 0 cm/sec - % stenosis [place] 3.3. Distal Segment: Peak systolic velocity 0 cm/sec: End-diastolic velocity 0 cm/sec - % stenosis [place] 4. External Carotid Artery: No significant focal plaque formation. Peak systolic velocity cm/sec 5. ICA/CCA Ratio: 1.2 VERTEBRAL ARTERIES: 1. Right Vertebral Artery: The right vertebral artery flow direction is antegrade. 2. Left Vertebral Artery: The left vertebral artery flow direction is antegrade. OTHER FINDINGS: 1. Right Brachial Blood pressure: mmHg. 2. Left Brachial Blood pressure: mmHg. 3. No atherosclerotic calcification present IMPRESSION: RIGHT: Duplex scan does not suggest hemodynamically significant stenosis of the right extracranial carotid arteries. LEFT: Occlusion of the left internal carotid artery. DELGADO Gardner notified about the findings.
[2018-06-28] MEDS ORDERED: Pneumococcal 23-Valent Vaccine IM ONE (16:21)
[2018-06-28 16:41] VITALS: RESP 20
--- NOTE | 2018-06-28 17:46 | CP.PCM.PN ---
Subjective - Date & Time of Evaluation Date of Evaluation: 06/28/18 Time of Evaluation: 17:44 - Subjective Subjective: Vascular Surgery Progress Note for Dr. Mcdonald This 73F was seen and examined this Am at bedside no acute events overnight. She denies any fevers chills chest pain or SOB. She has no new complaints at this time. Her Stress test was done and showed normal function. Objective - Vital Signs/Intake and Output Vital Signs (last 24 hours): Temp Pulse Resp BP Pulse Ox 98.3 F 84 20 151/68 H 93 L 06/28/18 16:41 06/28/18 16:41 06/28/18 16:41 06/28/18 16:41 06/28/18 16:41 Intake and Output: 06/28/18 06/28/18 06:59 18:59 Intake Total 100 700 Balance 100 700 - Medications Medications: Current Medications Amlodipine Besylate (Norvasc) 10 mg PO DAILY [facility] Last Admin: 06/28/18 11:14 Dose: 10 mg Apixaban (Eliquis) 2.5 mg PO BID [facility] Last Admin: 06/28/18 17:42 Dose: 2.5 mg Clopidogrel Bisulfate (Plavix) 75 mg PO DAILY [facility] Last Admin: 06/28/18 11:14 Dose: 75 mg Dextrose (Dextrose 50% Inj) 0 ml IV STAT PRN; Protocol PRN Reason: Hypoglycemia Protocol Dextrose (Glutose 15) 0 gm PO ONCE PRN; Protocol PRN Reason: Hypoglycemia Protocol Donepezil HCl (Aricept) 5 mg PO DAILY [facility] Last Admin: 06/28/18 11:14 Dose: 5 mg Gabapentin (Neurontin) 400 mg PO BID [facility] Last Admin: 06/28/18 10:56 Dose: Not Given Glucagon (Glucagen Diagnostic Kit) 0 mg IM STAT PRN; Protocol PRN Reason: Hypoglycemia Protocol Vancomycin/Sodium Chloride (Vancomycin 1 Gm/Ns 200 Ml) 1 gm in 200 mls @ 133 mls/hr IVPB Q24H [facility]; Protocol Stop: 07/03/18 11:01 Last Admin: 06/28/18 11:57 Dose: 133 mls/hr Piperacillin Sod/Tazobactam (Sod 3.375 gm/ Sodium Chloride) 100 mls @ 200 mls/hr IVPB Q8H [facility]; Protocol Last Admin: 06/28/18 11:10 Dose: 200 mls/hr Insulin Aspart (Novolog) 0 unit SC ACHS [facility]; Protocol Last Admin: 06/28/18 11:13 Dose: Not Given Insulin Detemir (Levemir) 15 unit SC QPM [facility] Last Admin: 06/27/18 17:27 Dose: 15 u Insulin Human Regular (Novolin R) 4 unit SC AC [facility] Last Admin: 06/28/18 16:30 Dose: 4 units Losartan Potassium (Cozaar) 100 mg PO DAILY [facility] Last Admin: 06/28/18 11:14 Dose: 100 mg Nystatin (Nystop Topical Powder) 2 gm TOP TID [facility] Last Admin: 06/28/18 17:42 Dose: 1 applic Rosuvastatin Calcium (Crestor) 10 mg PO HS [facility] Last Admin: 06/27/18 21:46 Dose: 10 mg Saccharomyces Boulardii (Florastor) 250 mg PO BID [facility] Last Admin: 06/28/18 17:42 Dose: 250 mg - Labs Labs: 06/28/18 07:15 06/28/18 07:15 PT 13.4 SECONDS (9.7-12.2) H 06/27/18 06:48 INR 1.2 06/27/18 06:48 APTT 30 SECONDS (21-34) 06/27/18 06:48 - Constitutional Appears: Well, No Acute Distress - Head Exam Head Exam: ATRAUMATIC, NORMOCEPHALIC - Eye Exam Eye Exam: Normal appearance - ENT Exam ENT Exam: Mucous Membranes Moist - Respiratory Exam Respiratory Exam: NORMAL BREATHING PATTERN - Cardiovascular Exam Cardiovascular Exam: RRR - GI/Abdominal Exam GI & Abdominal Exam: Soft - Extremities Exam Additional comments: b/l LE warm - Neurological Exam Neurological Exam: Alert, Awake - Skin Skin Exam: Dry, Warm Assessment and Plan - Assessment and Plan (Free Text) Assessment: 73F with PAD & R foot ulcer Plan: - CTA shows b/l SFA occlusions - Studies not providing adequate evaluation of right popliteal arter - Right lower extremity dupplex ordered to evaluate patency of right popliteal artery prior to bypass planning - medically optimize for OR - d/w Dr. Harry Walker PGY3
--- NOTE | 2018-06-28 17:59 | CP.PCM.PN ---
Subjective - Date & Time of Evaluation Date of Evaluation: 06/28/18 Time of Evaluation: 08:00 - Subjective Subjective: awaiting possible bypass surgery iv rx for infection right foot in progress Objective - Vital Signs/Intake and Output Vital Signs (last 24 hours): Temp Pulse Resp BP Pulse Ox 98.3 F 84 20 151/68 H 93 L 06/28/18 16:41 06/28/18 16:41 06/28/18 16:41 06/28/18 16:41 06/28/18 16:41 Intake and Output: 06/28/18 06/28/18 06:59 18:59 Intake Total 100 700 Balance 100 700 - Medications Medications: Current Medications Amlodipine Besylate (Norvasc) 10 mg PO DAILY [facility] Last Admin: 06/28/18 11:14 Dose: 10 mg Apixaban (Eliquis) 2.5 mg PO BID [facility] Last Admin: 06/28/18 17:42 Dose: 2.5 mg Clopidogrel Bisulfate (Plavix) 75 mg PO DAILY [facility] Last Admin: 06/28/18 11:14 Dose: 75 mg Dextrose (Dextrose 50% Inj) 0 ml IV STAT PRN; Protocol PRN Reason: Hypoglycemia Protocol Dextrose (Glutose 15) 0 gm PO ONCE PRN; Protocol PRN Reason: Hypoglycemia Protocol Donepezil HCl (Aricept) 5 mg PO DAILY [facility] Last Admin: 06/28/18 11:14 Dose: 5 mg Gabapentin (Neurontin) 400 mg PO BID [facility] Last Admin: 06/28/18 17:47 Dose: 400 mg Glucagon (Glucagen Diagnostic Kit) 0 mg IM STAT PRN; Protocol PRN Reason: Hypoglycemia Protocol Vancomycin/Sodium Chloride (Vancomycin 1 Gm/Ns 200 Ml) 1 gm in 200 mls @ 133 mls/hr IVPB Q24H [facility]; Protocol Stop: 07/03/18 11:01 Last Admin: 06/28/18 11:57 Dose: 133 mls/hr Piperacillin Sod/Tazobactam (Sod 3.375 gm/ Sodium Chloride) 100 mls @ 200 mls/hr IVPB Q8H [facility]; Protocol Last Admin: 06/28/18 17:44 Dose: 200 mls/hr Insulin Aspart (Novolog) 0 unit SC ACHS [facility]; Protocol Last Admin: 06/28/18 16:30 Dose: 1 units Insulin Detemir (Levemir) 15 unit SC QPM [facility] Last Admin: 06/27/18 17:27 Dose: 15 u Insulin Human Regular (Novolin R) 4 unit SC AC [facility] Last Admin: 06/28/18 16:30 Dose: 4 units Losartan Potassium (Cozaar) 100 mg PO DAILY [facility] Last Admin: 06/28/18 11:14 Dose: 100 mg Nystatin (Nystop Topical Powder) 2 gm TOP TID [facility] Last Admin: 06/28/18 17:42 Dose: 1 applic Rosuvastatin Calcium (Crestor) 10 mg PO HS [facility] Last Admin: 06/27/18 21:46 Dose: 10 mg Saccharomyces Boulardii (Florastor) 250 mg PO BID [facility] Last Admin: 06/28/18 17:42 Dose: 250 mg - Labs Labs: 06/28/18 07:15 06/28/18 07:15 PT 13.4 SECONDS (9.7-12.2) H 06/27/18 06:48 INR 1.2 06/27/18 06:48 APTT 30 SECONDS (21-34) 06/27/18 06:48 - Constitutional Appears: Non-toxic, Chronically Ill - Head Exam Head Exam: NORMOCEPHALIC - Eye Exam Eye Exam: absent: Scleral icterus - ENT Exam ENT Exam: Mucous Membranes Dry - Neck Exam Neck Exam: absent: Lymphadenopathy - Respiratory Exam Respiratory Exam: Decreased Breath Sounds - Cardiovascular Exam Cardiovascular Exam: REGULAR RHYTHM - GI/Abdominal Exam GI & Abdominal Exam: Distended - Rectal Exam Rectal Exam: Deferred - Exam Exam: NORMAL INSPECTION - Back Exam Back Exam: absent: CVA tenderness (L), CVA tenderness (R) - Neurological Exam Neurological Exam: Alert Assessment and Plan (1) Cellulitis and abscess of foot Status: Acute (2) Osteomyelitis of ankle or foot Status: Acute (3) Peripheral arterial disease Status: Acute (4) Stroke Status: Acute (5) CAD (coronary artery disease) Status: Chronic (6) Diabetic foot ulcer Status: Chronic (7) HTN (hypertension) Status: Chronic
[2018-06-28] MEDS: Insulin Detemir 100 units/ml Vial (Levemir) SC SCH (18:00)
[2018-06-29] MEDS: Piperacillin/Tazobact 3.375 GM in Sodium Chloride 100 ML IVPB SCH ×3 (02:41→17:50)
[2018-06-29] MEDS: (Novolin R) Insulin Human Regular 100 units/ml vial SC SCH ×3 (07:42→16:50)
[2018-06-29] MEDS: Saccharomyces Boulardi 250 mg Cap PO SCH ×2 (09:41→17:54)
[2018-06-29] MEDS: (Novolog) Insulin Aspart, Recombinant 100 u/ml 10 ml vial SC SCH ×4 (09:43→21:49)
[2018-06-29] MEDS ORDERED: Pneumococcal 23-Valent Vaccine SC ONE (10:00)
[2018-06-29 10:15] LABS: BASO # 0.1 K/uL (0.0-0.2); BASO % 1.3 % (0.0-2.0); EOS # 0.3 K/uL (0.0-0.7); EOS % 3.3 % (0.0-4.0); HEMOGLOBIN 10.6 g/dL (11.0-16.0); LYMPH # 1.7 K/uL (1.0-4.3); LYMPH % 17.5 % (20.0-40.0); MEAN CELL VOLUME 76.1 fL (81.0-99.0); MEAN CORPUSCULAR HEMOGLOBIN 24.4 pg (27.0-31.0); MEAN PLATELET VOLUME 7.9 fL (7.2-11.7); MONO # 1.1 K/uL (0.0-0.8); MONO % 10.9 % (0.0-10.0); NEUT # 6.7 K/uL (1.8-7.0); NRBC % 0.1 % (0.0-2.0); RBC 4.36 Mil/uL (3.80-5.20); RED CELL DISTRIBUTION WIDTH 14.7 % (11.5-14.5)
--- NOTE | 2018-06-29 10:39 | CP.PCM.PN ---
Subjective - Date & Time of Evaluation Date of Evaluation: 06/29/18 Time of Evaluation: 10:37 - Subjective Subjective: Podiatry Progress Note for Dr. Smart 73F seen forright foot heel wound and left heel callous. Patient is AAO x 3 at time of visit. Continues to have pain to her right heel. Denies any further pedal complaints at this time. Denies any recent N/V/CP/SOB/D. Multipodus boots are seen to be in place at this time. Objective - Vital Signs/Intake and Output Vital Signs (last 24 hours): Temp Pulse Resp BP Pulse Ox 99.9 F H 72 20 148/71 94 L 06/29/18 08:21 06/29/18 08:21 06/29/18 08:21 06/29/18 08:21 06/29/18 08:21 Intake and Output: 06/29/18 06/29/18 06:59 18:59 Intake Total 400 Balance 400 - Medications Medications: Current Medications Amlodipine Besylate (Norvasc) 10 mg PO DAILY [facility] Last Admin: 06/29/18 09:41 Dose: 10 mg Apixaban (Eliquis) 2.5 mg PO BID [facility] Last Admin: 06/29/18 09:41 Dose: 2.5 mg Clopidogrel Bisulfate (Plavix) 75 mg PO DAILY [facility] Last Admin: 06/29/18 09:41 Dose: 75 mg Dextrose (Dextrose 50% Inj) 0 ml IV STAT PRN; Protocol PRN Reason: Hypoglycemia Protocol Dextrose (Glutose 15) 0 gm PO ONCE PRN; Protocol PRN Reason: Hypoglycemia Protocol Donepezil HCl (Aricept) 5 mg PO DAILY [facility] Last Admin: 06/29/18 09:41 Dose: 5 mg Gabapentin (Neurontin) 400 mg PO BID [facility] Last Admin: 06/29/18 09:41 Dose: 400 mg Glucagon (Glucagen Diagnostic Kit) 0 mg IM STAT PRN; Protocol PRN Reason: Hypoglycemia Protocol Vancomycin/Sodium Chloride (Vancomycin 1 Gm/Ns 200 Ml) 1 gm in 200 mls @ 133 mls/hr IVPB Q24H [facility]; Protocol Stop: 07/03/18 11:01 Last Admin: 06/28/18 11:57 Dose: 133 mls/hr Piperacillin Sod/Tazobactam (Sod 3.375 gm/ Sodium Chloride) 100 mls @ 200 mls/hr IVPB Q8H [facility]; Protocol Last Admin: 06/29/18 09:40 Dose: 200 mls/hr Insulin Aspart (Novolog) 0 unit SC ACHS [facility]; Protocol Last Admin: 06/29/18 09:43 Dose: 1 units Insulin Detemir (Levemir) 15 unit SC QPM [facility] Last Admin: 06/28/18 18:00 Dose: 15 u Insulin Human Regular (Novolin R) 4 unit SC AC [facility] Last Admin: 06/29/18 07:42 Dose: 4 units Losartan Potassium (Cozaar) 100 mg PO DAILY [facility] Last Admin: 06/29/18 09:41 Dose: 100 mg Nystatin (Nystop Topical Powder) 2 gm TOP TID [facility] Last Admin: 06/28/18 17:42 Dose: 1 applic Rosuvastatin Calcium (Crestor) 10 mg PO HS [facility] Last Admin: 06/28/18 21:36 Dose: 10 mg Saccharomyces Boulardii (Florastor) 250 mg PO BID [facility] Last Admin: 06/29/18 09:41 Dose: 250 mg - Labs Labs: 06/29/18 10:08 06/28/18 07:15 PT 13.4 SECONDS (9.7-12.2) H 06/27/18 06:48 INR 1.2 06/27/18 06:48 APTT 30 SECONDS (21-34) 06/27/18 06:48 - Constitutional Appears: Well, Non-toxic - Head Exam Head Exam: ATRAUMATIC - Extremities Exam Additional comments: Dressing clean, dry and intact. Multipodus boots on. RLE focused exam: VASC: DP and PT non-palpable to the right lower extremity, CFT < 3 seconds to all digits. TG cool to cool R > L, with minimal edema noted to dorsum of both feet NEURO: Epicritic and protective sensation grossly intact b/l DERM: xerosis noted to bilateral feet Left- small area of pre-ulcerative lesion noted to the plantar aspect of the left heel, no drainage, no probe to bone, no tunneling, no malodor Right- No blistering or purulence appreciated today. Heel wound with fibronecrotic base and an eschar and no probe to bone, tracking, tunneling or undermining noted. ORTHO: significant pain on palpation to the right heel Assessment and Plan - Assessment and Plan (Free Text) Assessment: 73F seen for right foot heel wound and left heel callous Plan: Patient seen and evaluated with Dr. Smart Afebrile, absent leukocytosis Continue IV abx per ID Wound cx: Staph Aureus R foot xray:Soft tissue ulceration seen overlying the posterior calcaneus. No evidence of gross cortical irregularity at the level of the calcaneus to suggest an acute osteomyelitis. If there is concern for acute osteomyelitis, consider correlation with MRI. LE MRI: Prominent soft tissue ulceration/defect seen within the medial subcutaneous soft tissues at the level of the posterior heel. Reticulation and edema within the adjacent soft tissues. At that level, within the medial cortex of the posterior calcaneus, there is some mild increased STIR signal without gross corresponding decreased T1 signal as demonstrated on series 5, images 16- 18 as well as series 7 images 5-8. These changes likely do not represent a gross acute osteomyelitis; however, an early acute and or developing acute osteomyelitis cannot entirely be excluded. Continued interval follow-up and or correlation with three-phase bone scan may be helpful if indicated. Triple phase bone scan: Positive for acute osseous process to right calcaneus Dressing clean, dry and intact. No plan for surgical intervention at this time, per Dr. Smart treat with shelter IV abx Stable for discharge from podiatry point of view; patient will follow up with Dr. Smart within a week of discharge Continue offloading boots at all times Podiatry will continue to follow while patient in house
[2018-06-29 10:54] LABS: ALB/GLOB RATIO 0.8 (1.0-2.1); ALBUMIN 3.2 g/dL (3.5-5.0); CALCIUM 8.6 mg/dl (8.6-10.4)
[2018-06-29] MEDS: Nystatin 100,000 Units/gm Topical Pow(15 gm) TOP SCH ×3 (10:54→17:48)
[2018-06-29] MEDS: Vancomycin 1 gm/NS 200 ml 1 GM/200 ML BAG IVPB SCH (12:00)
[2018-06-29] MEDS ORDERED: Potassium Chloride 20 mEq ER Tab PO STA (13:43)
[2018-06-29] MEDS: Insulin Detemir 100 units/ml Vial (Levemir) SC SCH (17:54)
--- NOTE | 2018-06-29 21:46 | CP.PCM.PN ---
Subjective - Date & Time of Evaluation Date of Evaluation: 06/29/18 Time of Evaluation: 19:30 - Subjective Subjective: Patient was seen and examined. No cardiac events noted Objective - Constitutional Appears: No Acute Distress - Head Exam Head Exam: NORMAL INSPECTION, NORMOCEPHALIC - Eye Exam Eye Exam: Normal appearance - ENT Exam ENT Exam: Mucous Membranes Moist - Respiratory Exam Respiratory Exam: Clear to Ausculation Bilateral, NORMAL BREATHING PATTERN. absent: Decreased Breath Sounds, Prolonged Expiratory Phase - Cardiovascular Exam Cardiovascular Exam: +S1, +S2 - GI/Abdominal Exam GI & Abdominal Exam: Soft, Normal Bowel Sounds. absent: Distended, Tenderness - Extremities Exam Extremities Exam: Normal Inspection. absent: Pedal Edema, Tenderness - Neurological Exam Neurological Exam: Alert, Awake, Oriented x3 - Psychiatric Exam Psychiatric exam: Normal Affect, Normal Mood - Skin Skin Exam: Dry, Intact, Normal Color, Warm Assessment and Plan - Assessment and Plan (Free Text) Plan: Peripheral Vascular Disease Comorbidities: Hypertension, Uncontrolled Type 2 DM, CAD with CABG Imaging: - EKG: NSR 67 BPM; unchanged from prior - ECHO 10/2017: normal LVEF Patient s/p stress test Normal EF No stress induced ischemia This patient assessed as moderate cardiac risk for foot surgery under general anaesthesia Objective - Vital Signs/Intake and Output Vital Signs (last 24 hours): Temp Pulse Resp BP Pulse Ox 98.8 F 68 20 124/66 97 06/29/18 15:05 06/29/18 15:05 06/29/18 15:05 06/29/18 15:05 06/29/18 15:05 - Medications Medications: Current Medications Amlodipine Besylate (Norvasc) 10 mg PO DAILY [facility] Last Admin: 06/29/18 09:41 Dose: 10 mg Apixaban (Eliquis) 2.5 mg PO BID [facility] Last Admin: 06/29/18 17:53 Dose: 2.5 mg Clopidogrel Bisulfate (Plavix) 75 mg PO DAILY [facility] Last Admin: 06/29/18 09:41 Dose: 75 mg Dextrose (Dextrose 50% Inj) 0 ml IV STAT PRN; Protocol PRN Reason: Hypoglycemia Protocol Dextrose (Glutose 15) 0 gm PO ONCE PRN; Protocol PRN Reason: Hypoglycemia Protocol Donepezil HCl (Aricept) 5 mg PO DAILY [facility] Last Admin: 06/29/18 09:41 Dose: 5 mg Gabapentin (Neurontin) 400 mg PO BID [facility] Last Admin: 06/29/18 17:53 Dose: 400 mg Glucagon (Glucagen Diagnostic Kit) 0 mg IM STAT PRN; Protocol PRN Reason: Hypoglycemia Protocol Vancomycin/Sodium Chloride (Vancomycin 1 Gm/Ns 200 Ml) 1 gm in 200 mls @ 133 mls/hr IVPB Q24H [facility]; Protocol Stop: 07/03/18 11:01 Last Admin: 06/29/18 12:00 Dose: 133 mls/hr Piperacillin Sod/Tazobactam (Sod 3.375 gm/ Sodium Chloride) 100 mls @ 200 mls/hr IVPB Q8H [facility]; Protocol Last Admin: 06/29/18 17:50 Dose: 200 mls/hr Insulin Aspart (Novolog) 0 unit SC ACHS [facility]; Protocol Last Admin: 06/29/18 16:50 Dose: 1 units Insulin Detemir (Levemir) 15 unit SC QPM [facility] Last Admin: 06/29/18 17:54 Dose: 15 u Insulin Human Regular (Novolin R) 4 unit SC AC [facility] Last Admin: 06/29/18 16:50 Dose: 4 units Losartan Potassium (Cozaar) 100 mg PO DAILY [facility] Last Admin: 06/29/18 09:41 Dose: 100 mg Nystatin (Nystop Topical Powder) 2 gm TOP TID [facility] Last Admin: 06/29/18 17:48 Dose: 1 applic Rosuvastatin Calcium (Crestor) 10 mg PO HS [facility] Last Admin: 06/28/18 21:36 Dose: 10 mg Saccharomyces Boulardii (Florastor) 250 mg PO BID [facility] Last Admin: 06/29/18 17:54 Dose: 250 mg - Labs Labs: 06/29/18 10:08 06/29/18 10:08 PT 13.4 SECONDS (9.7-12.2) H 06/27/18 06:48 INR 1.2 06/27/18 06:48 APTT 30 SECONDS (21-34) 06/27/18 06:48
[2018-06-30] MEDS: Piperacillin/Tazobact 3.375 GM in Sodium Chloride 100 ML IVPB SCH ×3 (01:00→17:51)
[2018-06-30 07:41] LABS: BASO # 0.1 K/uL (0.0-0.2); EOS # 0.3 K/uL (0.0-0.7); EOS % 3.7 % (0.0-4.0); HEMOGLOBIN 9.7 g/dL (11.0-16.0); LYMPH # 1.6 K/uL (1.0-4.3); LYMPH % 21.5 % (20.0-40.0); MEAN CELL VOLUME 76.5 fL (81.0-99.0); MEAN CORPUSCULAR HEMOGLOBIN 24.6 pg (27.0-31.0); MEAN CORPUSCULAR HGB CONC 32.1 g/dL (33.0-37.0); MEAN PLATELET VOLUME 8.3 fL (7.2-11.7); MONO # 1.1 K/uL (0.0-0.8); MONO % 14.6 % (0.0-10.0); NEUT # 4.4 K/uL (1.8-7.0); NEUT % 59.2 % (50.0-75.0); RBC 3.96 Mil/uL (3.80-5.20); RED CELL DISTRIBUTION WIDTH 14.6 % (11.5-14.5); WHITE BLOOD COUNT 7.4 K/uL (4.8-10.8)
[2018-06-30] MEDS: (Novolin R) Insulin Human Regular 100 units/ml vial SC SCH ×3 (07:41→17:00)
[2018-06-30] MEDS: (Novolog) Insulin Aspart, Recombinant 100 u/ml 10 ml vial SC SCH ×4 (07:59→22:00)
[2018-06-30 08:11] LABS: ALB/GLOB RATIO 0.9 (1.0-2.1); ALBUMIN 2.9 g/dL (3.5-5.0); ALT/SGPT 11 U/L (9-52); AST/SGOT 17 U/L (14-36); BLOOD UREA NITROGEN 5 mg/dL (7-17); CALCIUM 8.4 mg/dl (8.6-10.4); GFR NON-AFRICAN AMERICAN > 60
[2018-06-30] MEDS: Nystatin 100,000 Units/gm Topical Pow(15 gm) TOP SCH ×3 (09:41→17:48)
[2018-06-30] MEDS: Saccharomyces Boulardi 250 mg Cap PO SCH ×2 (09:42→17:50)
[2018-06-30] MEDS: Vancomycin 1 gm/NS 200 ml 1 GM/200 ML BAG IVPB SCH (10:31)
--- NOTE | 2018-06-30 16:25 | CP.PCM.PN ---
Subjective - Date & Time of Evaluation Date of Evaluation: 06/30/18 Time of Evaluation: 05:00 - Subjective Subjective: iv rx renewed Objective - Vital Signs/Intake and Output Vital Signs (last 24 hours): Temp Pulse Resp BP Pulse Ox 97.9 F 71 20 155/61 H 97 06/30/18 08:14 06/30/18 08:14 06/30/18 08:14 06/30/18 08:14 06/30/18 08:14 Intake and Output: 06/30/18 06/30/18 06:59 18:59 Intake Total 850 700 Output Total 1 Balance 849 700 - Medications Medications: Current Medications Amlodipine Besylate (Norvasc) 10 mg PO DAILY [facility] Last Admin: 06/30/18 09:42 Dose: 10 mg Apixaban (Eliquis) 2.5 mg PO BID [facility] Last Admin: 06/30/18 09:42 Dose: 2.5 mg Clopidogrel Bisulfate (Plavix) 75 mg PO DAILY [facility] Last Admin: 06/30/18 09:42 Dose: 75 mg Dextrose (Dextrose 50% Inj) 0 ml IV STAT PRN; Protocol PRN Reason: Hypoglycemia Protocol Dextrose (Glutose 15) 0 gm PO ONCE PRN; Protocol PRN Reason: Hypoglycemia Protocol Donepezil HCl (Aricept) 5 mg PO DAILY [facility] Last Admin: 06/30/18 09:42 Dose: 5 mg Gabapentin (Neurontin) 400 mg PO BID [facility] Last Admin: 06/30/18 09:42 Dose: 400 mg Glucagon (Glucagen Diagnostic Kit) 0 mg IM STAT PRN; Protocol PRN Reason: Hypoglycemia Protocol Vancomycin/Sodium Chloride (Vancomycin 1 Gm/Ns 200 Ml) 1 gm in 200 mls @ 133 mls/hr IVPB Q24H [facility]; Protocol Stop: 07/03/18 11:01 Last Admin: 06/30/18 10:31 Dose: 133 mls/hr Piperacillin Sod/Tazobactam (Sod 3.375 gm/ Sodium Chloride) 100 mls @ 200 mls/hr IVPB Q8H [facility]; Protocol Last Admin: 06/30/18 09:48 Dose: 200 mls/hr Insulin Aspart (Novolog) 0 unit SC ACHS [facility]; Protocol Last Admin: 06/30/18 12:44 Dose: 2 units Insulin Detemir (Levemir) 15 unit SC QPM [facility] Last Admin: 06/29/18 17:54 Dose: 15 u Insulin Human Regular (Novolin R) 4 unit SC AC [facility] Last Admin: 06/30/18 12:44 Dose: 4 units Losartan Potassium (Cozaar) 100 mg PO DAILY [facility] Last Admin: 06/30/18 09:42 Dose: 100 mg Nystatin (Nystop Topical Powder) 2 gm TOP TID [facility] Last Admin: 06/30/18 14:00 Dose: 1 applic Rosuvastatin Calcium (Crestor) 10 mg PO HS [facility] Last Admin: 06/29/18 21:48 Dose: 10 mg Saccharomyces Boulardii (Florastor) 250 mg PO BID [facility] Last Admin: 06/30/18 09:42 Dose: 250 mg - Labs Labs: 06/30/18 07:24 06/30/18 07:24 PT 13.4 SECONDS (9.7-12.2) H 06/27/18 06:48 INR 1.2 06/27/18 06:48 APTT 30 SECONDS (21-34) 06/27/18 06:48 Assessment and Plan (1) Cellulitis and abscess of foot Status: Acute (2) Osteomyelitis of ankle or foot Status: Acute (3) Peripheral arterial disease Status: Acute (4) Stroke Status: Acute (5) CAD (coronary artery disease) Status: Chronic (6) Diabetic foot ulcer Status: Chronic (7) HTN (hypertension) Status: Chronic
[2018-06-30] MEDS: Insulin Detemir 100 units/ml Vial (Levemir) SC SCH (17:50)
--- NOTE | 2018-06-30 18:51 | CP.PCM.PN ---
Subjective - Date & Time of Evaluation Date of Evaluation: 06/30/18 Time of Evaluation: 09:10 - Subjective Subjective: Patient was seen and examined. No cardiac events noted Patient not in distress Objective - Constitutional Appears: No Acute Distress - Head Exam Head Exam: NORMAL INSPECTION, NORMOCEPHALIC - Eye Exam Eye Exam: Normal appearance - ENT Exam ENT Exam: Mucous Membranes Moist - Respiratory Exam Respiratory Exam: Clear to Ausculation Bilateral, NORMAL BREATHING PATTERN. absent: Decreased Breath Sounds, Prolonged Expiratory Phase - Cardiovascular Exam Cardiovascular Exam: +S1, +S2 - GI/Abdominal Exam GI & Abdominal Exam: Soft, Normal Bowel Sounds. absent: Distended, Tenderness - Extremities Exam Extremities Exam: Normal Inspection. absent: Pedal Edema, Tenderness - Neurological Exam Neurological Exam: Alert, Awake, Oriented x3 - Psychiatric Exam Psychiatric exam: Normal Affect, Normal Mood - Skin Skin Exam: Dry, Intact, Normal Color, Warm Assessment and Plan - Assessment and Plan (Free Text) Plan: Peripheral Vascular Disease Comorbidities: Hypertension, Uncontrolled Type 2 DM, CAD with CABG Imaging: - EKG: NSR 67 BPM; unchanged from prior - ECHO 10/2017: normal LVEF Patient s/p stress test Normal EF No stress induced ischemia Medical management Objective - Vital Signs/Intake and Output Vital Signs (last 24 hours): Temp Pulse Resp BP Pulse Ox 98.9 F 74 20 128/75 98 06/30/18 15:00 06/30/18 15:00 06/30/18 15:00 06/30/18 15:00 06/30/18 15:00 Intake and Output: 06/30/18 06/30/18 06:59 18:59 Intake Total 850 700 Output Total 1 Balance 849 700 - Medications Medications: Current Medications Amlodipine Besylate (Norvasc) 10 mg PO DAILY [facility] Last Admin: 06/30/18 09:42 Dose: 10 mg Apixaban (Eliquis) 2.5 mg PO BID [facility] Last Admin: 06/30/18 17:50 Dose: 2.5 mg Clopidogrel Bisulfate (Plavix) 75 mg PO DAILY [facility] Last Admin: 06/30/18 09:42 Dose: 75 mg Dextrose (Dextrose 50% Inj) 0 ml IV STAT PRN; Protocol PRN Reason: Hypoglycemia Protocol Dextrose (Glutose 15) 0 gm PO ONCE PRN; Protocol PRN Reason: Hypoglycemia Protocol Donepezil HCl (Aricept) 5 mg PO DAILY [facility] Last Admin: 06/30/18 09:42 Dose: 5 mg Gabapentin (Neurontin) 400 mg PO BID [facility] Last Admin: 06/30/18 09:42 Dose: 400 mg Glucagon (Glucagen Diagnostic Kit) 0 mg IM STAT PRN; Protocol PRN Reason: Hypoglycemia Protocol Vancomycin/Sodium Chloride (Vancomycin 1 Gm/Ns 200 Ml) 1 gm in 200 mls @ 133 mls/hr IVPB Q24H [facility]; Protocol Stop: 07/03/18 11:01 Last Admin: 06/30/18 10:31 Dose: 133 mls/hr Piperacillin Sod/Tazobactam (Sod 3.375 gm/ Sodium Chloride) 100 mls @ 200 mls/hr IVPB Q8H [facility]; Protocol Last Admin: 06/30/18 17:51 Dose: 200 mls/hr Insulin Aspart (Novolog) 0 unit SC ACHS [facility]; Protocol Last Admin: 06/30/18 17:00 Dose: 1 units Insulin Detemir (Levemir) 15 unit SC QPM [facility] Last Admin: 06/30/18 17:50 Dose: 15 u Insulin Human Regular (Novolin R) 4 unit SC AC [facility] Last Admin: 06/30/18 17:00 Dose: 4 units Losartan Potassium (Cozaar) 100 mg PO DAILY [facility] Last Admin: 06/30/18 09:42 Dose: 100 mg Nystatin (Nystop Topical Powder) 2 gm TOP TID [facility] Last Admin: 06/30/18 17:48 Dose: 1 applic Rosuvastatin Calcium (Crestor) 10 mg PO HS [facility] Last Admin: 06/29/18 21:48 Dose: 10 mg Saccharomyces Boulardii (Florastor) 250 mg PO BID [facility] Last Admin: 06/30/18 17:50 Dose: 250 mg - Labs Labs: 06/30/18 07:24 06/30/18 07:24 PT 13.4 SECONDS (9.7-12.2) H 06/27/18 06:48 INR 1.2 06/27/18 06:48 APTT 30 SECONDS (21-34) 06/27/18 06:48
[2018-07-01] MEDS: Piperacillin/Tazobact 3.375 GM in Sodium Chloride 100 ML IVPB SCH ×3 (01:45→17:00)
[2018-07-01 08:38] LABS: BASO % 0.5 % (0.0-2.0); EOS # 0.3 K/uL (0.0-0.7); EOS % 4.1 % (0.0-4.0); LYMPH # 1.7 K/uL (1.0-4.3); LYMPH % 24.6 % (20.0-40.0); MEAN CORPUSCULAR HEMOGLOBIN 24.6 pg (27.0-31.0); MEAN CORPUSCULAR HGB CONC 32.3 g/dL (33.0-37.0); MEAN PLATELET VOLUME 8.3 fL (7.2-11.7); MONO # 1.2 K/uL (0.0-0.8); MONO % 17.9 % (0.0-10.0); NEUT # 3.7 K/uL (1.8-7.0); NEUT % 52.9 % (50.0-75.0); RBC 4.07 Mil/uL (3.80-5.20); RED CELL DISTRIBUTION WIDTH 14.7 % (11.5-14.5); WHITE BLOOD COUNT 6.9 K/uL (4.8-10.8)
[2018-07-01 08:39] LABS: ALB/GLOB RATIO 0.8 (1.0-2.1); CALCIUM 8.8 mg/dl (8.6-10.4)
[2018-07-01] MEDS: (Novolog) Insulin Aspart, Recombinant 100 u/ml 10 ml vial SC SCH ×4 (08:40→21:34)
[2018-07-01] MEDS: (Novolin R) Insulin Human Regular 100 units/ml vial SC SCH ×3 (08:47→17:25)
[2018-07-01] MEDS: Saccharomyces Boulardi 250 mg Cap PO SCH ×2 (09:17→17:26)
[2018-07-01] MEDS: Nystatin 100,000 Units/gm Topical Pow(15 gm) TOP SCH ×3 (09:21→17:00)
--- NOTE | 2018-07-01 11:03 | CP.PCM.PN ---
Subjective - Date & Time of Evaluation Date of Evaluation: 07/01/18 Time of Evaluation: 12:43 - Subjective Subjective: PGY3 Note for Dr. Miranda This patient is cleared for d/c as per Dr. Miranda however surgery is planning on doing a fem-pop bypass on this surgery; the patient has no complaints today and denies all symptoms. Patient will be kept for bypass surgery. No podiatry surgical intervention. Objective - Vital Signs/Intake and Output Vital Signs (last 24 hours): Temp Pulse Resp BP Pulse Ox 98.3 F 75 20 145/69 97 07/01/18 07:32 07/01/18 07:32 07/01/18 07:32 07/01/18 07:32 07/01/18 07:32 Intake and Output: 07/01/18 07/01/18 06:59 18:59 Intake Total 310 Output Total 1 Balance 309 - Medications Medications: Current Medications Amlodipine Besylate (Norvasc) 10 mg PO DAILY [facility] Last Admin: 07/01/18 09:17 Dose: 10 mg Apixaban (Eliquis) 2.5 mg PO BID [facility] Last Admin: 07/01/18 09:17 Dose: 2.5 mg Clopidogrel Bisulfate (Plavix) 75 mg PO DAILY [facility] Last Admin: 07/01/18 09:17 Dose: 75 mg Dextrose (Dextrose 50% Inj) 0 ml IV STAT PRN; Protocol PRN Reason: Hypoglycemia Protocol Dextrose (Glutose 15) 0 gm PO ONCE PRN; Protocol PRN Reason: Hypoglycemia Protocol Donepezil HCl (Aricept) 5 mg PO DAILY [facility] Last Admin: 07/01/18 09:17 Dose: 5 mg Gabapentin (Neurontin) 400 mg PO BID [facility] Last Admin: 07/01/18 09:17 Dose: 400 mg Glucagon (Glucagen Diagnostic Kit) 0 mg IM STAT PRN; Protocol PRN Reason: Hypoglycemia Protocol Vancomycin/Sodium Chloride (Vancomycin 1 Gm/Ns 200 Ml) 1 gm in 200 mls @ 133 mls/hr IVPB Q24H [facility]; Protocol Stop: 07/03/18 11:01 Last Admin: 06/30/18 10:31 Dose: 133 mls/hr Piperacillin Sod/Tazobactam (Sod 3.375 gm/ Sodium Chloride) 100 mls @ 200 mls/hr IVPB Q8H [facility]; Protocol Last Admin: 07/01/18 01:45 Dose: 200 mls/hr Insulin Aspart (Novolog) 0 unit SC ACHS [facility]; Protocol Last Admin: 07/01/18 08:40 Dose: Not Given Insulin Detemir (Levemir) 15 unit SC QPM [facility] Last Admin: 06/30/18 17:50 Dose: 15 u Insulin Human Regular (Novolin R) 4 unit SC AC [facility] Last Admin: 07/01/18 08:47 Dose: 4 units Losartan Potassium (Cozaar) 100 mg PO DAILY [facility] Last Admin: 07/01/18 09:17 Dose: 100 mg Nystatin (Nystop Topical Powder) 2 gm TOP TID [facility] Last Admin: 07/01/18 09:21 Dose: 1 applic Rosuvastatin Calcium (Crestor) 10 mg PO HS [facility] Last Admin: 06/30/18 22:41 Dose: 10 mg Saccharomyces Boulardii (Florastor) 250 mg PO BID [facility] Last Admin: 07/01/18 09:17 Dose: 250 mg - Labs Labs: 07/01/18 08:16 07/01/18 08:16 PT 13.4 SECONDS (9.7-12.2) H 06/27/18 06:48 INR 1.2 06/27/18 06:48 APTT 30 SECONDS (21-34) 06/27/18 06:48 Assessment and Plan - Assessment and Plan (Free Text) Assessment: Appears: Non-toxic - Head Exam Head Exam: ATRAUMATIC - Eye Exam Eye Exam: EOMI - Neck Exam Neck Exam: Full ROM - Respiratory Exam Respiratory Exam: Clear to Ausculation Bilateral - Cardiovascular Exam Cardiovascular Exam: REGULAR RHYTHM - GI/Abdominal Exam GI & Abdominal Exam: Soft - Extremities Exam Extremities Exam: absent: Calf Tenderness - Neurological Exam Neurological Exam: Awake - Psychiatric Exam Psychiatric exam: Normal Affect - Skin Skin Exam: Warm Assessment and Plan - Assessment and Plan (Free Text) Assessment: 73 year old female admitted 06/22/18 for non healing right heel wound with osteomyelitis. R Heel Wound; osteomyelitis - Afebrile, absent leukocytosis - ID Consult: Dr. Dominguez --> help appreciated - Vascular Consult: Dr. Mcdonald --> help appreciated - Podiatry Consult: Dr. Smart --> help appreciated - per podiatry no surgical intervention at this time - Images: * Right Foot Xray: Soft tissue ulceration seen overlying the posterior calcaneus. No evidence of gross cortical irregularity at the level of the calcaneus to suggest an acute osteomyelitis. If there is concern for acute osteomyelitis, consider correlation with MRI. Diffuse osteopenia. Dorsal soft tissue swelling at the level of the midfoot Hallux valgus deformity. * Lower Extremity US: Negative * Lower Extremity MRI: Prominent soft tissue ulceration/defect seen within the medial subcutaneous soft tissues at the level of the posterior heel. Reticulation and edema within the adjacent soft tissues. At that level, within the medial cortex of the posterior calcaneus, there is some mild increased STIR signal without gross corresponding decreased T1 signal as demonstrated on series 5, images 16-18 as well as series 7 images 5-8. These changes likely do not represent a gross acute osteomyelitis; however, an early acute and or developing acute osteomyelitis cannot entirely be excluded. Continued interval follow-up and or correlation with three-phase bone scan may be helpful if indicated. - f/u blood cultures; negative to date - Wound culture: Staph Aureus - Medications: * Zosyn 3.375 Q6H (started on 06/28/18), Vanco 06/28, patient will need 6-8 week course of IV abx. to end 08/07/18 * Florastor 250mg bid * no surgical intervention as per podiatry PT is recommending [facility]; will talk with case management for placement History of HTN - ECHO (10/19/17): EF 59%; the left ventricle is normal in size; normal left ventricular wall thickness; left ventricle function is normal; normal LV segmental wall motion - Chest Xray: Satisfactory position of recently placed PICC line. No pneumo thorax. Atelectasis at the lung bases particularly on the right. - f/u EKG - Medications: * Amlodipine 10mg daily * Losartan 100mg po daily History of PAD - Extremity Venous Study: Right: Diameter measurements of the right greater saphenous vein are measured between 0.32 cm and 0.64 cm and lesser saphenous vein is measured between 0.28 cm and 0.42 cm. Left: Diameter measurements of the left lesser saphenous vein is measured between 0.22 cm and 0.55 cm. The left greater saphenous vein has been previously removed. - Abdominal Angiography: There is poor opacification of right and left lower extremities which limits their evaluation. Please see full report. - Vascular Consult: Dr. Mcdonald --> help appreciated - Plan for right lower extremity bypass; - Pending cardiac clearance - Cardiology Consult: Dr. Stroud --> help appreciated - Stress test Sunday06/28/18 - Medications - medications will need to be help prior to surgical procedure * Eliquis 2.5mg BID-->held 07/01 for surgery 07/02 * Plavix 75mg daily-->held 07/01 for surgery 07/02 * cardiology states patient is medically optimized for surgery History of CAD - f/u lipid panel - Medications - medications will need to be help prior to surgical procedure * Eliquis 2.5mg BID * Plavix 75mg daily * Crestor 10mg HS History of Diabetes type II - f/u hA1c - Hypoglycemia Protocol - Accuchecks - Medications: * Levemir 15units SC QPM * Novolin R 4 units SC AC * Novolog * Losartan 100mg po daily History of Neuropathy - Gabapentin 400mg bid History of Dementia - Donepizil 5mg daily Dipso: pending bypass surgery the patient is cleared to go to [facility] with the following The patient is stable for d/c to [facility] as per Dr. Miranda with the following medicines The patient needs to continue the followin) f/u with podiatry in [facility]/wound dressing changes 2) Amlodipine 10mg daily, Losartan 100mg daily 3) Rosuvastatin 10mg HS, Plavix 75mg Daily, Eliquis 2.5mg BID 4) Donepazil 5mg daily 5) Zosyn 3.375mg Q8H and Vancomycin 1g daily ending on 08/14/18 for osteomyelitis 6)Insulin detemir 10 units SC before meals; RISS coverage
--- NOTE | 2018-07-01 12:18 | CP.PCM.PN ---
<Sanna Salazar - Last Filed: 07/01/18 13:13> Subjective - Date & Time of Evaluation Date of Evaluation: 07/01/18 Time of Evaluation: 10:00 - Subjective Subjective: Cardiology Follow Up Note Patient was seen and examined at bedside. Patient denied any chest pain, shortness of breath, or palpitations. Objective - Vital Signs/Intake and Output Vital Signs (last 24 hours): Temp Pulse Resp BP Pulse Ox 98.3 F 75 20 145/69 97 07/01/18 07:32 07/01/18 07:32 07/01/18 07:32 07/01/18 07:32 07/01/18 07:32 Intake and Output: 07/01/18 07/01/18 06:59 18:59 Intake Total 310 Output Total 1 Balance 309 - Medications Medications: Current Medications Amlodipine Besylate (Norvasc) 10 mg PO DAILY ON LICENSE OF [facility] Last Admin: 07/01/18 09:17 Dose: 10 mg Apixaban (Eliquis) 2.5 mg PO BID ON LICENSE OF [facility] Last Admin: 07/01/18 09:17 Dose: 2.5 mg Clopidogrel Bisulfate (Plavix) 75 mg PO DAILY ON LICENSE OF [facility] Last Admin: 07/01/18 09:17 Dose: 75 mg Dextrose (Dextrose 50% Inj) 0 ml IV STAT PRN; Protocol PRN Reason: Hypoglycemia Protocol Dextrose (Glutose 15) 0 gm PO ONCE PRN; Protocol PRN Reason: Hypoglycemia Protocol Donepezil HCl (Aricept) 5 mg PO DAILY ON LICENSE OF [facility] Last Admin: 07/01/18 09:17 Dose: 5 mg Gabapentin (Neurontin) 400 mg PO BID ON LICENSE OF [facility] Last Admin: 07/01/18 09:17 Dose: 400 mg Glucagon (Glucagen Diagnostic Kit) 0 mg IM STAT PRN; Protocol PRN Reason: Hypoglycemia Protocol Vancomycin/Sodium Chloride (Vancomycin 1 Gm/Ns 200 Ml) 1 gm in 200 mls @ 133 mls/hr IVPB Q24H ON LICENSE OF [facility]; Protocol Stop: 07/03/18 11:01 Last Admin: 06/30/18 10:31 Dose: 133 mls/hr Piperacillin Sod/Tazobactam (Sod 3.375 gm/ Sodium Chloride) 100 mls @ 200 mls/hr IVPB Q8H ON LICENSE OF [facility]; Protocol Last Admin: 07/01/18 01:45 Dose: 200 mls/hr Insulin Aspart (Novolog) 0 unit SC ACHS ON LICENSE OF [facility]; Protocol Last Admin: 07/01/18 08:40 Dose: Not Given Insulin Detemir (Levemir) 15 unit SC QPM ON LICENSE OF [facility] Last Admin: 06/30/18 17:50 Dose: 15 u Insulin Human Regular (Novolin R) 4 unit SC AC ON LICENSE OF [facility] Last Admin: 07/01/18 08:47 Dose: 4 units Losartan Potassium (Cozaar) 100 mg PO DAILY ON LICENSE OF [facility] Last Admin: 07/01/18 09:17 Dose: 100 mg Nystatin (Nystop Topical Powder) 2 gm TOP TID ON LICENSE OF [facility] Last Admin: 07/01/18 09:21 Dose: 1 applic Rosuvastatin Calcium (Crestor) 10 mg PO HS ON LICENSE OF [facility] Last Admin: 06/30/18 22:41 Dose: 10 mg Saccharomyces Boulardii (Florastor) 250 mg PO BID ON LICENSE OF [facility] Last Admin: 07/01/18 09:17 Dose: 250 mg - Labs Labs: 07/01/18 08:16 07/01/18 08:16 PT 13.4 SECONDS (9.7-12.2) H 06/27/18 06:48 INR 1.2 06/27/18 06:48 APTT 30 SECONDS (21-34) 06/27/18 06:48 - Additional Findings Additional findings: - Constitutional Appears: No Acute Distress - Head Exam Head Exam: NORMAL INSPECTION, NORMOCEPHALIC - Eye Exam Eye Exam: Normal appearance - ENT Exam ENT Exam: Mucous Membranes Moist - Respiratory Exam Respiratory Exam: Clear to Ausculation Bilateral, NORMAL BREATHING PATTERN. absent: Decreased Breath Sounds, Prolonged Expiratory Phase - Cardiovascular Exam Cardiovascular Exam: +S1, +S2 - GI/Abdominal Exam GI & Abdominal Exam: Soft, Normal Bowel Sounds. absent: Distended, Tenderness - Extremities Exam Extremities Exam: Normal Inspection. absent: Pedal Edema, Tenderness - Neurological Exam Neurological Exam: Alert, Awake, Oriented x3 - Psychiatric Exam Psychiatric exam: Normal Affect, Normal Mood - Skin Skin Exam: Dry, Intact, Normal Color, Warm Assessment and Plan - Assessment and Plan (Free Text) Plan: Peripheral Vascular Disease Comorbidities: Hypertension, Uncontrolled Type 2 DM, CAD with CABG Imaging: - EKG: NSR 67 BPM; unchanged from prior - ECHO 10/2017: normal LVEF - S/P Stress Test: normal EF, no stress induced ischemia noted Management: - This patient assessed as moderate cardiac risk for right lower extremity bypass under general anaesthesia Case discussed with Sanna Velasquez DO, PGY2 <Humza Stroud - Last Filed: 07/01/18 23:51> Objective - Vital Signs/Intake and Output Vital Signs (last 24 hours): Temp Pulse Resp BP Pulse Ox 98.8 F 72 20 154/71 H 97 07/01/18 23:26 07/01/18 23:26 07/01/18 23:26 07/01/18 23:26 07/01/18 23:26 Intake and Output: 07/01/18 07/02/18 18:59 06:59 Intake Total 700 Balance 700 - Medications Medications: Current Medications Amlodipine Besylate (Norvasc) 10 mg PO DAILY ON [facility] OF [facility] Last Admin: 07/01/18 09:17 Dose: 10 mg Apixaban (Eliquis) 2.5 mg PO BID ON [facility] OF [facility] Last Admin: 07/01/18 09:17 Dose: 2.5 mg Clopidogrel Bisulfate (Plavix) 75 mg PO DAILY ON [facility] Last Admin: 07/01/18 09:17 Dose: 75 mg Dextrose (Dextrose 50% Inj) 0 ml IV STAT PRN; Protocol PRN Reason: Hypoglycemia Protocol Dextrose (Glutose 15) 0 gm PO ONCE PRN; Protocol PRN Reason: Hypoglycemia Protocol Donepezil HCl (Aricept) 5 mg PO DAILY ON [facility] Last Admin: 07/01/18 09:17 Dose: 5 mg Gabapentin (Neurontin) 400 mg PO BID ON [facility] Last Admin: 07/01/18 17:26 Dose: 400 mg Glucagon (Glucagen Diagnostic Kit) 0 mg IM STAT PRN; Protocol PRN Reason: Hypoglycemia Protocol Vancomycin/Sodium Chloride (Vancomycin 1 Gm/Ns 200 Ml) 1 gm in 200 mls @ 133 mls/hr IVPB Q24H ON LICENSE OF [facility]; Protocol Stop: 07/03/18 11:01 Last Admin: 07/01/18 14:50 Dose: 133 mls/hr Piperacillin Sod/Tazobactam (Sod 3.375 gm/ Sodium Chloride) 100 mls @ 200 mls/hr IVPB Q8H ON [facility]; Protocol Last Admin: 07/01/18 17:00 Dose: 200 mls/hr Insulin Aspart (Novolog) 0 unit SC ACHS ON [facility] OF [facility]; Protocol Last Admin: 07/01/18 21:34 Dose: Not Given Insulin Detemir (Levemir) 15 unit SC QPM ON [facility] OF [facility] Last Admin: 07/01/18 17:26 Dose: 15 u Insulin Human Regular (Novolin R) 4 unit SC AC ON [facility] Last Admin: 07/01/18 17:25 Dose: 4 units Losartan Potassium (Cozaar) 100 mg PO DAILY ON [facility] Last Admin: 07/01/18 09:17 Dose: 100 mg Nystatin (Nystop Topical Powder) 2 gm TOP TID ON LICENSE [facility] Last Admin: 07/01/18 17:00 Dose: 1 applic Rosuvastatin Calcium (Crestor) 10 mg PO HS ON [facility] Last Admin: 07/01/18 21:34 Dose: 10 mg Saccharomyces Boulardii (Florastor) 250 mg PO BID ON [facility] OF [facility] Last Admin: 07/01/18 17:26 Dose: 250 mg - Labs Labs: 07/01/18 08:16 07/01/18 08:16 PT 13.4 SECONDS (9.7-12.2) H 06/27/18 06:48 INR 1.2 06/27/18 06:48 APTT 30 SECONDS (21-34) 06/27/18 06:48 Assessment and Plan - Assessment and Plan (Free Text) Plan: Patient seen and evaluated personally by wy Plan of care d/w the medical education coordinator and as documented
[2018-07-01] MEDS: Vancomycin 1 gm/NS 200 ml 1 GM/200 ML BAG IVPB SCH (14:50)
--- NOTE | 2018-07-01 16:22 | CP.PCM.PN ---
Subjective - Date & Time of Evaluation Date of Evaluation: 07/01/18 Time of Evaluation: 16:19 - Subjective Subjective: Podiatry Progress Note: Dr. Smart 73 year old female seen and evaluated for right foot heel wound and left heel callous. Patient is AAOx3 at time of visit. Continues to have pain to her right heel. Denies any further pedal complaints at this time. Denies any recent N/V/CP/SOB/D. Objective - Vital Signs/Intake and Output Vital Signs (last 24 hours): Temp Pulse Resp BP Pulse Ox 98.4 F 69 20 126/66 97 07/01/18 15:00 07/01/18 15:00 07/01/18 15:00 07/01/18 15:00 07/01/18 15:00 Intake and Output: 07/01/18 07/01/18 06:59 18:59 Intake Total 310 Output Total 1 Balance 309 - Medications Medications: Current Medications Amlodipine Besylate (Norvasc) 10 mg PO DAILY [facility] Last Admin: 07/01/18 09:17 Dose: 10 mg Apixaban (Eliquis) 2.5 mg PO BID [facility] Last Admin: 07/01/18 09:17 Dose: 2.5 mg Clopidogrel Bisulfate (Plavix) 75 mg PO DAILY [facility] Last Admin: 07/01/18 09:17 Dose: 75 mg Dextrose (Dextrose 50% Inj) 0 ml IV STAT PRN; Protocol PRN Reason: Hypoglycemia Protocol Dextrose (Glutose 15) 0 gm PO ONCE PRN; Protocol PRN Reason: Hypoglycemia Protocol Donepezil HCl (Aricept) 5 mg PO DAILY [facility] Last Admin: 07/01/18 09:17 Dose: 5 mg Gabapentin (Neurontin) 400 mg PO BID [facility] Last Admin: 07/01/18 09:17 Dose: 400 mg Glucagon (Glucagen Diagnostic Kit) 0 mg IM STAT PRN; Protocol PRN Reason: Hypoglycemia Protocol Vancomycin/Sodium Chloride (Vancomycin 1 Gm/Ns 200 Ml) 1 gm in 200 mls @ 133 mls/hr IVPB Q24H [facility]; Protocol Stop: 07/03/18 11:01 Last Admin: 07/01/18 14:50 Dose: 133 mls/hr Piperacillin Sod/Tazobactam (Sod 3.375 gm/ Sodium Chloride) 100 mls @ 200 mls/hr IVPB Q8H [facility]; Protocol Last Admin: 07/01/18 14:33 Dose: 200 mls/hr Insulin Aspart (Novolog) 0 unit SC ACHS [facility]; Protocol Last Admin: 07/01/18 12:15 Dose: Not Given Insulin Detemir (Levemir) 15 unit SC QPM [facility] Last Admin: 06/30/18 17:50 Dose: 15 u Insulin Human Regular (Novolin R) 4 unit SC AC [facility] Last Admin: 07/01/18 12:21 Dose: 4 units Losartan Potassium (Cozaar) 100 mg PO DAILY [facility] Last Admin: 07/01/18 09:17 Dose: 100 mg Nystatin (Nystop Topical Powder) 2 gm TOP TID [facility] Last Admin: 07/01/18 15:01 Dose: 1 applic Rosuvastatin Calcium (Crestor) 10 mg PO HS [facility] Last Admin: 06/30/18 22:41 Dose: 10 mg Saccharomyces Boulardii (Florastor) 250 mg PO BID [facility] Last Admin: 07/01/18 09:17 Dose: 250 mg - Labs Labs: 07/01/18 08:16 07/01/18 08:16 PT 13.4 SECONDS (9.7-12.2) H 06/27/18 06:48 INR 1.2 06/27/18 06:48 APTT 30 SECONDS (21-34) 06/27/18 06:48 - Constitutional Appears: Well, Non-toxic, No Acute Distress - Extremities Exam Additional comments: Dressing clean, dry and intact. Multipodus boots on. RLE focused exam: VASC: DP and PT non-palpable to the right lower extremity, CFT < 3 seconds to all digits. TG cool to cool R > L, with minimal edema noted to dorsum of both feet DERM: xerosis noted to bilateral feet Left- small area of pre-ulcerative lesion noted to the plantar aspect of the left heel, no drainage, no probe to bone, no tunneling, no malodor Right- No blistering or purulence appreciated today. Heel wound with fibronecrotic base and an eschar and no probe to bone, tracking, tunneling or undermining noted. NEURO: Epicritic and protective sensation grossly intact b/l ORTHO: significant pain on palpation to the right heel - Neurological Exam Neurological Exam: Alert, Awake, Oriented x3 - Psychiatric Exam Psychiatric exam: Normal Affect, Normal Mood Assessment and Plan - Assessment and Plan (Free Text) Assessment: 73 year old female evaluated for right foot heel wound and left heel callous Plan: Patient seen and evaluated with Dr. Smart Afebrile, absent leukocytosis Wound cx: Staph Aureus Continue IV abx per ID R foot xray:Soft tissue ulceration seen overlying the posterior calcaneus. No evidence of gross cortical irregularity at the level of the calcaneus to suggest an acute osteomyelitis. If there is concern for acute osteomyelitis, consider correlation with MRI. LE MRI: Prominent soft tissue ulceration/defect seen within the medial subcutaneous soft tissues at the level of the posterior heel. Reticulation and edema within the adjacent soft tissues. At that level, within the medial cortex of the posterior calcaneus, there is some mild increased STIR signal without gross corresponding decreased T1 signal as demonstrated on series 5, images 16- 18 as well as series 7 images 5-8. These changes likely do not represent a gross acute osteomyelitis; however, an early acute and or developing acute osteom yelitis cannot entirely be excluded. Continued interval follow-up and or correlation with three-phase bone scan may be helpful if indicated. Triple phase bone scan: Positive for acute osseous process to right calcaneus Dressing clean, dry and intact - new dressing applied using xeroform, betadine, DSD No plan for surgical intervention at this time, per Dr. Smart treat with long t erm IV abx Stable for discharge from podiatry point of view; patient will follow up with Dr. Smart within a week of discharge Continue offloading boots while in-house Podiatry will continue to follow while patient in house
[2018-07-01] MEDS: Insulin Detemir 100 units/ml Vial (Levemir) SC SCH (17:26)
--- NOTE | 2018-07-01 19:48 | CARD ---
APPROVED REPORT Date of service: 06/28/2018 EKG Measurement Heart [id number] <Conclusion> Accelerated Junctional rhythm Nonspecific T wave abnormality Abnormal ECG
[2018-07-02] MEDS: Piperacillin/Tazobact 3.375 GM in Sodium Chloride 100 ML IVPB SCH ×3 (02:25→21:42)
[2018-07-02 07:24] LABS: BASO # 0.1 K/uL (0.0-0.2); BASO % 0.9 % (0.0-2.0); EOS # 0.3 K/uL (0.0-0.7); EOS % 4.1 % (0.0-4.0); HEMOGLOBIN 9.9 g/dL (11.0-16.0); LYMPH # 1.7 K/uL (1.0-4.3); LYMPH % 23.1 % (20.0-40.0); MEAN CELL VOLUME 75.8 fL (81.0-99.0); MEAN CORPUSCULAR HEMOGLOBIN 24.7 pg (27.0-31.0); MEAN CORPUSCULAR HGB CONC 32.6 g/dL (33.0-37.0); MEAN PLATELET VOLUME 8.5 fL (7.2-11.7); MONO # 1.1 K/uL (0.0-0.8); MONO % 14.4 % (0.0-10.0); NEUT # 4.2 K/uL (1.8-7.0); NEUT % 57.5 % (50.0-75.0); RBC 3.99 Mil/uL (3.80-5.20); RED CELL DISTRIBUTION WIDTH 14.4 % (11.5-14.5); WHITE BLOOD COUNT 7.3 K/uL (4.8-10.8)
[2018-07-02 07:32] LABS: INR 1.2; PROTHROMBIN TIME 12.7 SECONDS (9.7-12.2)
[2018-07-02] MEDS: (Novolog) Insulin Aspart, Recombinant 100 u/ml 10 ml vial SC SCH ×4 (07:42→21:45)
[2018-07-02] MEDS: (Novolin R) Insulin Human Regular 100 units/ml vial SC SCH ×3 (07:43→16:30)
[2018-07-02 07:44] LABS: ALB/GLOB RATIO 0.8 (1.0-2.1); ALT/SGPT 16 U/L (9-52); AST/SGOT 25 U/L (14-36); BLOOD UREA NITROGEN 7 mg/dL (7-17); CALCIUM 8.6 mg/dl (8.6-10.4); GFR NON-AFRICAN AMERICAN 55
[2018-07-02] MEDS: Saccharomyces Boulardi 250 mg Cap PO SCH ×2 (09:10→17:27)
[2018-07-02] MEDS: Nystatin 100,000 Units/gm Topical Pow(15 gm) TOP SCH ×3 (09:18→21:46)
--- NOTE | 2018-07-02 09:18 | CP.PCM.PN ---
Subjective - Date & Time of Evaluation Date of Evaluation: 07/02/18 Time of Evaluation: 08:00 - Subjective Subjective: Progress Note for Dr. Miranda Patient was seen at bedside in the AM. No acute events overnight. Vascular surgery is planning on doing a fem-pop bypass on 07/04/18. The patient has no complaints today and denies all symptoms. Objective - Vital Signs/Intake and Output Vital Signs (last 24 hours): Temp Pulse Resp BP Pulse Ox 98.8 F 72 20 154/71 H 97 07/01/18 23:26 07/01/18 23:26 07/01/18 23:26 07/01/18 23:26 07/01/18 23:26 Intake and Output: 07/02/18 07/02/18 06:59 18:59 Intake Total 100 Output Total 300 Balance -200 - Medications Medications: Current Medications Amlodipine Besylate (Norvasc) 10 mg PO DAILY [facility] Last Admin: 07/02/18 09:10 Dose: 10 mg Apixaban (Eliquis) 2.5 mg PO BID [facility] Last Admin: 07/01/18 09:17 Dose: 2.5 mg Clopidogrel Bisulfate (Plavix) 75 mg PO DAILY [facility] Last Admin: 07/01/18 09:17 Dose: 75 mg Dextrose (Dextrose 50% Inj) 0 ml IV STAT PRN; Protocol PRN Reason: Hypoglycemia Protocol Dextrose (Glutose 15) 0 gm PO ONCE PRN; Protocol PRN Reason: Hypoglycemia Protocol Donepezil HCl (Aricept) 5 mg PO DAILY [facility] Last Admin: 07/02/18 09:10 Dose: 5 mg Gabapentin (Neurontin) 400 mg PO BID [facility] Last Admin: 07/02/18 09:10 Dose: 400 mg Glucagon (Glucagen Diagnostic Kit) 0 mg IM STAT PRN; Protocol PRN Reason: Hypoglycemia Protocol Vancomycin/Sodium Chloride (Vancomycin 1 Gm/Ns 200 Ml) 1 gm in 200 mls @ 133 mls/hr IVPB Q24H [facility]; Protocol Stop: 07/03/18 11:01 Last Admin: 07/01/18 14:50 Dose: 133 mls/hr Piperacillin Sod/Tazobactam (Sod 3.375 gm/ Sodium Chloride) 100 mls @ 200 mls/hr IVPB Q8H [facility]; Protocol Last Admin: 07/02/18 02:25 Dose: 200 mls/hr Insulin Aspart (Novolog) 0 unit SC ACHS [facility]; Protocol Last Admin: 07/02/18 07:42 Dose: Not Given Insulin Detemir (Levemir) 15 unit SC QPM [facility] Last Admin: 07/01/18 17:26 Dose: 15 u Insulin Human Regular (Novolin R) 4 unit SC AC [facility] Last Admin: 07/02/18 07:43 Dose: Not Given Losartan Potassium (Cozaar) 100 mg PO DAILY [facility] Last Admin: 07/02/18 09:11 Dose: 100 mg Nystatin (Nystop Topical Powder) 2 gm TOP TID [facility] Last Admin: 07/01/18 17:00 Dose: 1 applic Rosuvastatin Calcium (Crestor) 10 mg PO HS [facility] Last Admin: 07/01/18 21:34 Dose: 10 mg Saccharomyces Boulardii (Florastor) 250 mg PO BID [facility] Last Admin: 07/02/18 09:10 Dose: 250 mg - Labs Labs: 07/02/18 07:14 07/02/18 07:14 PT 12.7 SECONDS (9.7-12.2) H 07/02/18 07:14 INR 1.2 07/02/18 07:14 APTT 35 SECONDS (21-34) H 07/02/18 07:14 - Constitutional Appears: Non-toxic, No Acute Distress - Head Exam Head Exam: ATRAUMATIC, NORMAL INSPECTION - ENT Exam ENT Exam: Mucous Membranes Moist - Respiratory Exam Respiratory Exam: Clear to Ausculation Bilateral, NORMAL BREATHING PATTERN - Cardiovascular Exam Cardiovascular Exam: REGULAR RHYTHM, +S1, +S2 - GI/Abdominal Exam GI & Abdominal Exam: Soft, Normal Bowel Sounds. absent: Tenderness - Neurological Exam Neurological Exam: Awake - Psychiatric Exam Psychiatric exam: Normal Affect - Skin Skin Exam: Warm Assessment and Plan - Assessment and Plan (Free Text) Assessment: 73 year old female admitted 06/22/18 for non healing right heel wound with osteomyelitis. R Heel Wound; osteomyelitis - Afebrile, absent leukocytosis - ID Consult: Dr. Dominguez --> help appreciated - Vascular Consult: Dr. Mcdonald --> help appreciated - Podiatry Consult: Dr. Smart --> help appreciated - per podiatry no surgical intervention at this time - Images: * Right Foot Xray: Soft tissue ulceration seen overlying the posterior calcaneus. No evidence of gross cortical irregularity at the level of the calcaneus to suggest an acute osteomyelitis. If there is concern for acute osteomyelitis, consider correlation with MRI. Diffuse osteopenia. Dorsal soft tissue swelling at the level of the midfoot Hallux valgus deformity. * Lower Extremity US: Negative * Lower Extremity MRI: Prominent soft tissue ulceration/defect seen within the medial subcutaneous soft tissues at the level of the posterior heel. Reticulation and edema within the adjacent soft tissues. At that level, within the medial cortex of the posterior calcaneus, there is some mild increased STIR signal without gross corresponding decreased T1 signal as demonstrated on series 5, images 16-18 as well as series 7 images 5-8. These changes likely do not represent a gross acute osteomyelitis; however, an early acute and or developing acute osteomyelitis cannot entirely be excluded. Continued interval follow-up and or correlation with three-phase bone scan may be helpful if indicated. - Blood cultures: negative - Wound culture: Staph Aureus - Medications: * Zosyn 3.375 Q6H (started on 06/28/18), Vanco 06/28, patient will need 6-8 week course of IV abx. to end 08/07/18 * Florastor 250mg bid History of HTN - ECHO (10/19/17): EF 59%; the left ventricle is normal in size; normal left ventricular wall thickness; left ventricle function is normal; normal LV segmental wall motion - Chest Xray: Satisfactory position of recently placed PICC line. No pneumothorax. Atelectasis at the lung bases particularly on the right. - f/u EKG - Medications: * Amlodipine 10mg daily * Losartan 100mg po daily History of PAD - Extremity Venous Study: Right: Diameter measurements of the right greater saphenous vein are measured between 0.32 cm and 0.64 cm and lesser saphenous vein is measured between 0.28 cm and 0.42 cm. Left: Diameter measurements of the left lesser saphenous vein is measured between 0.22 cm and 0.55 cm. The left greater saphenous vein has been previously removed. - Abdominal Angiography: There is poor opacification of right and left lower extremities which limits their evaluation. Please see full report. - Vascular Consult: Dr. Mcdonald --> help appreciated - Plan for right lower extremity bypass 07/04/18 - Pending cardiac clearance - Cardiology Consult: Dr. Stroud --> help appreciated - Stress test Sunday06/28/18: normal EF, no stress induced ischemia noted - Moderate cardiac risk for right lower extremity bypass under general anaesthesia - Medications - medications will need to be help prior to surgical procedure * Eliquis 2.5mg BID-->held 07/01 for surgery 07/02 * Plavix 75mg daily-->held 07/01 for surgery 07/02 History of CAD - Lipid panel: Total cholesterol 209; LDL 99; HDL 16; Triglycerides 209 - Medications - medications will need to be help prior to surgical procedure * Eliquis 2.5mg BID held 07/01 for surgery 07/02 * Plavix 75mg daily held 07/01 for surgery 07/02 * Crestor 10mg HS History of Diabetes type II - hA1c: 8.1 - Hypoglycemia Protocol - Accuchecks - Medications: * Levemir 15units SC QPM * Novolin R 4 units SC AC * Novolog * Losartan 100mg po daily History of Neuropathy - Gabapentin 400mg bid History of Dementia - Donepizil 5mg daily PT is recommending [facility]; will talk with case management for placement Dipso: pending bypass surgery the patient is cleared to go to [facility] with the following The patient is stable for d/c to [facility] as per Dr. Miranda with the following medicines The patient needs to continue the followin) f/u with podiatry in [place]/wound dressing changes 2) Amlodipine 10mg daily, Losartan 100mg daily 3) Rosuvastatin 10mg HS, Plavix 75mg Daily, Eliquis 2.5mg BID 4) Donepazil 5mg daily 5) Zosyn 3.375mg Q8H and Vancomycin 1g daily ending on 08/14/18 for osteomyelitis 6)Insulin detemir 10 units SC before meals; RISS coverage
--- NOTE | 2018-07-02 11:11 | CP.PCM.PN ---
Subjective - Date & Time of Evaluation Date of Evaluation: 07/02/18 Time of Evaluation: 11:09 - Subjective Subjective: Podiatry Progress Note: Dr. Smart 73 year old female seen and evaluated for right foot heel wound and left heel callous. Seen with family members at bedside. Patient is AAOx3 at time of visit. Continues to have pain to her right heel. Denies any further pedal complaints at this time. Denies any recent N/V/CP/SOB/D. Objective - Vital Signs/Intake and Output Vital Signs (last 24 hours): Temp Pulse Resp BP Pulse Ox 98.8 F 72 20 154/71 H 97 07/01/18 23:26 07/01/18 23:26 07/01/18 23:26 07/01/18 23:26 07/01/18 23:26 Intake and Output: 07/02/18 07/02/18 06:59 18:59 Intake Total 100 Output Total 300 Balance -200 - Medications Medications: Current Medications Amlodipine Besylate (Norvasc) 10 mg PO DAILY [facility] Last Admin: 07/02/18 09:10 Dose: 10 mg Apixaban (Eliquis) 2.5 mg PO BID [facility] Last Admin: 07/01/18 09:17 Dose: 2.5 mg Clopidogrel Bisulfate (Plavix) 75 mg PO DAILY [facility] Last Admin: 07/01/18 09:17 Dose: 75 mg Dextrose (Dextrose 50% Inj) 0 ml IV STAT PRN; Protocol PRN Reason: Hypoglycemia Protocol Dextrose (Glutose 15) 0 gm PO ONCE PRN; Protocol PRN Reason: Hypoglycemia Protocol Donepezil HCl (Aricept) 5 mg PO DAILY [facility] Last Admin: 07/02/18 09:10 Dose: 5 mg Gabapentin (Neurontin) 400 mg PO BID [facility] Last Admin: 07/02/18 09:10 Dose: 400 mg Glucagon (Glucagen Diagnostic Kit) 0 mg IM STAT PRN; Protocol PRN Reason: Hypoglycemia Protocol Vancomycin/Sodium Chloride (Vancomycin 1 Gm/Ns 200 Ml) 1 gm in 200 mls @ 133 mls/hr IVPB Q24H [facility]; Protocol Stop: 07/03/18 11:01 Last Admin: 07/01/18 14:50 Dose: 133 mls/hr Piperacillin Sod/Tazobactam (Sod 3.375 gm/ Sodium Chloride) 100 mls @ 200 mls/hr IVPB Q8H [facility]; Protocol Last Admin: 07/02/18 10:48 Dose: 200 mls/hr Insulin Aspart (Novolog) 0 unit SC ACHS [facility]; Protocol Last Admin: 07/02/18 07:42 Dose: Not Given Insulin Detemir (Levemir) 15 unit SC QPM [facility] Last Admin: 07/01/18 17:26 Dose: 15 u Insulin Human Regular (Novolin R) 4 unit SC AC [facility] Last Admin: 07/02/18 07:43 Dose: Not Given Losartan Potassium (Cozaar) 100 mg PO DAILY [facility] Last Admin: 07/02/18 09:11 Dose: 100 mg Nystatin (Nystop Topical Powder) 2 gm TOP TID [facility] Last Admin: 07/02/18 09:18 Dose: 1 applic Rosuvastatin Calcium (Crestor) 10 mg PO HS [facility] Last Admin: 07/01/18 21:34 Dose: 10 mg Saccharomyces Boulardii (Florastor) 250 mg PO BID [facility] Last Admin: 07/02/18 09:10 Dose: 250 mg - Labs Labs: 07/02/18 07:14 07/02/18 07:14 PT 12.7 SECONDS (9.7-12.2) H 07/02/18 07:14 INR 1.2 07/02/18 07:14 APTT 35 SECONDS (21-34) H 07/02/18 07:14 - Constitutional Appears: Well, Non-toxic, No Acute Distress - Extremities Exam Additional comments: Dressing clean, dry and intact. Multipodus boots on. RLE focused exam: VASC: DP and PT non-palpable to the right lower extremity, CFT < 3 seconds to all digits. TG cool to cool R > L, with minimal edema noted to dorsum of both feet DERM: xerosis noted to bilateral feet Left- small area of pre-ulcerative lesion noted to the plantar aspect of the left heel, no drainage, no probe to bone, no tunneling, no malodor Right- No blistering or purulence appreciated today. Heel wound with fibronecrotic base and an eschar and no probe to bone, tracking, tunneling or undermining noted. NEURO: Epicritic and protective sensation grossly intact b/l ORTHO: significant pain on palpation to the right heel - Neurological Exam Neurological Exam: Alert, Awake, Oriented x3 - Psychiatric Exam Psychiatric exam: Normal Affect, Normal Mood Assessment and Plan - Assessment and Plan (Free Text) Assessment: 73 year old female evaluated for right foot heel wound and left heel callous Plan: Patient seen and evaluated with Dr. Smart Afebrile, absent leukocytosis Wound cx: Staph Aureus Continue IV abx per ID R foot xray:Soft tissue ulceration seen overlying the posterior calcaneus. No evidence of gross cortical irregularity at the level of the calcaneus to suggest an acute osteomyelitis. If there is concern for acute osteomyelitis, consider correlation with MRI. LE MRI: Prominent soft tissue ulceration/defect seen within the medial subcutaneous soft tissues at the level of the posterior heel. Reticulation and edema within the adjacent soft tissues. At that level, within the medial cortex of the posterior calcaneus, there is some mild increased STIR signal without gross corresponding decreased T1 signal as demonstrated on series 5, images 16- 18 as well as series 7 images 5-8. These changes likely do not represent a gross acute osteomyelitis; however, an early acute and or developing acute osteomyelitis cannot entirely be excluded. Continued interval follow-up and or correlation with three-phase bone scan may be helpful if indicated. Triple phase bone scan: Positive for acute osseous process to right calcaneus Dressing clean, dry and intact - new dressing applied using xeroform, betadine, DSD No plan for surgical intervention at this time, per Dr. Smart treat with termination clerk IV abx Stable for discharge from podiatry point of view; patient will follow up with Dr. Smart within a week of discharge Continue offloading boots while in-house Podiatry will continue to follow while patient in house
[2018-07-02] MEDS: Vancomycin 1 gm/NS 200 ml 1 GM/200 ML BAG IVPB SCH (11:34)
--- NOTE | 2018-07-02 14:51 | CP.PCM.PN ---
Subjective - Date & Time of Evaluation Date of Evaluation: 07/02/18 Time of Evaluation: 07:00 - Subjective Subjective: VASCULAR SURGERY PROGRESS NOTE FOR DR. ESCOBAR Patient seen and examined at bedside. Doing well, no complaints of pain at this time. Objective - Vital Signs/Intake and Output Vital Signs (last 24 hours): Temp Pulse Resp BP Pulse Ox 98.6 F 63 20 148/59 L 96 07/02/18 07:00 07/02/18 07:00 07/02/18 07:00 07/02/18 07:00 07/02/18 07:00 Intake and Output: 07/02/18 07/02/18 06:59 18:59 Intake Total 500 Output Total 300 Balance 200 - Medications Medications: Current Medications Amlodipine Besylate (Norvasc) 10 mg PO DAILY [facility] Last Admin: 07/02/18 09:10 Dose: 10 mg Apixaban (Eliquis) 2.5 mg PO BID [facility] Last Admin: 07/01/18 09:17 Dose: 2.5 mg Clopidogrel Bisulfate (Plavix) 75 mg PO DAILY [facility] Last Admin: 07/01/18 09:17 Dose: 75 mg Dextrose (Dextrose 50% Inj) 0 ml IV STAT PRN; Protocol PRN Reason: Hypoglycemia Protocol Dextrose (Glutose 15) 0 gm PO ONCE PRN; Protocol PRN Reason: Hypoglycemia Protocol Donepezil HCl (Aricept) 5 mg PO DAILY [facility] Last Admin: 07/02/18 09:10 Dose: 5 mg Gabapentin (Neurontin) 400 mg PO BID [facility] Last Admin: 07/02/18 09:10 Dose: 400 mg Glucagon (Glucagen Diagnostic Kit) 0 mg IM STAT PRN; Protocol PRN Reason: Hypoglycemia Protocol Vancomycin/Sodium Chloride (Vancomycin 1 Gm/Ns 200 Ml) 1 gm in 200 mls @ 133 mls/hr IVPB Q24H [facility]; Protocol Stop: 07/03/18 11:01 Last Admin: 07/02/18 11:34 Dose: 133 mls/hr Piperacillin Sod/Tazobactam (Sod 3.375 gm/ Sodium Chloride) 100 mls @ 200 mls/hr IVPB Q8H [facility]; Protocol Last Admin: 07/02/18 10:48 Dose: 200 mls/hr Insulin Aspart (Novolog) 0 unit SC ACHS [facility]; Protocol Last Admin: 07/02/18 11:46 Dose: 2 units Insulin Detemir (Levemir) 15 unit SC QPM [facility] Last Admin: 07/01/18 17:26 Dose: 15 u Insulin Human Regular (Novolin R) 4 unit SC AC [facility] Last Admin: 07/02/18 11:46 Dose: 4 units Losartan Potassium (Cozaar) 100 mg PO DAILY [facility] Last Admin: 07/02/18 09:11 Dose: 100 mg Nystatin (Nystop Topical Powder) 2 gm TOP TID [facility] Last Admin: 07/02/18 13:37 Dose: 1 applic Rosuvastatin Calcium (Crestor) 10 mg PO HS [facility] Last Admin: 07/01/18 21:34 Dose: 10 mg Saccharomyces Boulardii (Florastor) 250 mg PO BID [facility] Last Admin: 07/02/18 09:10 Dose: 250 mg - Labs Labs: 07/02/18 07:14 07/02/18 07:14 PT 12.7 SECONDS (9.7-12.2) H 07/02/18 07:14 INR 1.2 07/02/18 07:14 APTT 35 SECONDS (21-34) H 07/02/18 07:14 - Constitutional Appears: Non-toxic, No Acute Distress - Respiratory Exam Respiratory Exam: NORMAL BREATHING PATTERN. absent: Respiratory Distress - Cardiovascular Exam Cardiovascular Exam: +S1, +S2 - Extremities Exam Additional comments: Bilateral feet wrapped, clean/dry/intact - Neurological Exam Neurological Exam: Alert Assessment and Plan - Assessment and Plan (Free Text) Assessment: 73F with PAD & R foot ulcer. CTA shows bilateral SFA occlusions Plan: - OR for bypass - Eliquis held since 07/01 Am - Type and crossed - Cardiology Clearance: ECHO 10/2017: normal LVEF, S/P Stress Test: normal EF, no stress induced ischemia. Per Dr. Stroud, pt has moderate cardiac risk for right lower extremity bypass under general anaesthesia - Discussed plan with Dr. Harry Erickson PGY-4
--- NOTE | 2018-07-02 17:10 | CARD ---
APPROVED REPORT Date of service: 07/01/2018 EKG Measurement Heart [id number] <Conclusion> Normal sinus rhythm Low voltage QRS Borderline ECG
--- NOTE | 2018-07-02 17:47 | CP.PCM.PN ---
Subjective - Date & Time of Evaluation Date of Evaluation: 07/02/18 Time of Evaluation: 13:05 - Subjective Subjective: Patient was seen and examined. No cardiac events noted Patient not in distress Objective - Constitutional Appears: No Acute Distress - Head Exam Head Exam: NORMAL INSPECTION, NORMOCEPHALIC - Eye Exam Eye Exam: Normal appearance - ENT Exam ENT Exam: Mucous Membranes Moist - Respiratory Exam Respiratory Exam: Clear to Ausculation Bilateral, NORMAL BREATHING PATTERN. absent: Decreased Breath Sounds, Prolonged Expiratory Phase - Cardiovascular Exam Cardiovascular Exam: +S1, +S2 - GI/Abdominal Exam GI & Abdominal Exam: Soft, Normal Bowel Sounds. absent: Distended, Tenderness - Extremities Exam Extremities Exam: Normal Inspection. absent: Pedal Edema, Tenderness - Neurological Exam Neurological Exam: Alert, Awake, Oriented x3 - Psychiatric Exam Psychiatric exam: Normal Affect, Normal Mood - Skin Skin Exam: Dry, Intact, Normal Color, Warm Assessment and Plan - Assessment and Plan (Free Text) Plan: Peripheral Vascular Disease Comorbidities: Hypertension, Uncontrolled Type 2 DM, CAD with CABG Imaging: - EKG: NSR 67 BPM; unchanged from prior - ECHO 10/2017: normal LVEF Patient s/p stress test Normal EF No stress induced ischemia Patient for Vascular Bypass Objective - Vital Signs/Intake and Output Vital Signs (last 24 hours): Temp Pulse Resp BP Pulse Ox 98.3 F 71 20 135/71 97 07/02/18 15:00 07/02/18 15:00 07/02/18 15:00 07/02/18 15:00 07/02/18 15:00 Intake and Output: 07/02/18 07/02/18 06:59 18:59 Intake Total 500 Output Total 300 Balance 200 - Medications Medications: Current Medications Amlodipine Besylate (Norvasc) 10 mg PO DAILY [facility] Last Admin: 07/02/18 09:10 Dose: 10 mg Apixaban (Eliquis) 2.5 mg PO BID [facility] Last Admin: 07/01/18 09:17 Dose: 2.5 mg Clopidogrel Bisulfate (Plavix) 75 mg PO DAILY [facility] Last Admin: 07/01/18 09:17 Dose: 75 mg Dextrose (Dextrose 50% Inj) 0 ml IV STAT PRN; Protocol PRN Reason: Hypoglycemia Protocol Dextrose (Glutose 15) 0 gm PO ONCE PRN; Protocol PRN Reason: Hypoglycemia Protocol Donepezil HCl (Aricept) 5 mg PO DAILY [facility] Last Admin: 07/02/18 09:10 Dose: 5 mg Gabapentin (Neurontin) 400 mg PO BID [facility] Last Admin: 07/02/18 17:27 Dose: 400 mg Glucagon (Glucagen Diagnostic Kit) 0 mg IM STAT PRN; Protocol PRN Reason: Hypoglycemia Protocol Vancomycin/Sodium Chloride (Vancomycin 1 Gm/Ns 200 Ml) 1 gm in 200 mls @ 133 mls/hr IVPB Q24H [facility]; Protocol Stop: 07/03/18 11:01 Last Admin: 07/02/18 11:34 Dose: 133 mls/hr Piperacillin Sod/Tazobactam (Sod 3.375 gm/ Sodium Chloride) 100 mls @ 200 mls /hr IVPB Q8H [facility]; Protocol Last Admin: 07/02/18 10:48 Dose: 200 mls/hr Insulin Aspart (Novolog) 0 unit SC ACHS [facility]; Protocol Last Admin: 07/02/18 11:46 Dose: 2 units Insulin Detemir (Levemir) 15 unit SC QPM [facility] Last Admin: 07/01/18 17:26 Dose: 15 u Insulin Human Regular (Novolin R) 4 unit SC AC [facility] Last Admin: 07/02/18 11:46 Dose: 4 units Losartan Potassium (Cozaar) 100 mg PO DAILY [facility] Last Admin: 07/02/18 09:11 Dose: 100 mg Nystatin (Nystop Topical Powder) 2 gm TOP TID [facility] Last Admin: 07/02/18 13:37 Dose: 1 applic Rosuvastatin Calcium (Crestor) 10 mg PO HS [facility] Last Admin: 07/01/18 21:34 Dose: 10 mg Saccharomyces Boulardii (Florastor) 250 mg PO BID [facility] Last Admin: 07/02/18 17:27 Dose: 250 mg - Labs Labs: 07/02/18 07:14 07/02/18 07:14 PT 12.7 SECONDS (9.7-12.2) H 07/02/18 07:14 INR 1.2 07/02/18 07:14 APTT 35 SECONDS (21-34) H 07/02/18 07:14
[2018-07-02] MEDS: Insulin Detemir 100 units/ml Vial (Levemir) SC SCH (18:00)
[2018-07-03] MEDS: Piperacillin/Tazobact 3.375 GM in Sodium Chloride 100 ML IVPB SCH ×3 (01:45→17:19)
[2018-07-03 07:19] LABS: BASO # 0.1 K/uL (0.0-0.2); EOS # 0.3 K/uL (0.0-0.7); EOS % 3.8 % (0.0-4.0); HEMOGLOBIN 9.6 g/dL (11.0-16.0); LYMPH # 1.7 K/uL (1.0-4.3); LYMPH % 22.8 % (20.0-40.0); MEAN CORPUSCULAR HEMOGLOBIN 24.7 pg (27.0-31.0); MEAN CORPUSCULAR HGB CONC 32.6 g/dL (33.0-37.0); MEAN PLATELET VOLUME 8.6 fL (7.2-11.7); MONO # 1.1 K/uL (0.0-0.8); MONO % 13.8 % (0.0-10.0); NEUT # 4.5 K/uL (1.8-7.0); NEUT % 58.6 % (50.0-75.0); NRBC % 0.2 % (0.0-2.0); RBC 3.87 Mil/uL (3.80-5.20); RED CELL DISTRIBUTION WIDTH 14.1 % (11.5-14.5); WHITE BLOOD COUNT 7.6 K/uL (4.8-10.8)
[2018-07-03 07:38] LABS: ALB/GLOB RATIO 0.9 (1.0-2.1); ALBUMIN 3.1 g/dL (3.5-5.0); ALT/SGPT 17 U/L (9-52); AST/SGOT 24 U/L (14-36); BLOOD UREA NITROGEN 10 mg/dL (7-17); CALCIUM 8.5 mg/dl (8.6-10.4); GFR NON-AFRICAN AMERICAN 55
[2018-07-03] MEDS: (Novolin R) Insulin Human Regular 100 units/ml vial SC SCH ×3 (08:30→17:19)
[2018-07-03] MEDS: (Novolog) Insulin Aspart, Recombinant 100 u/ml 10 ml vial SC SCH ×4 (08:30→21:24)
[2018-07-03] MEDS: Saccharomyces Boulardi 250 mg Cap PO SCH ×2 (10:21→17:21)
[2018-07-03] MEDS: Nystatin 100,000 Units/gm Topical Pow(15 gm) TOP SCH ×3 (10:22→17:18)
[2018-07-03] MEDS: Vancomycin 1 gm/NS 200 ml 1 GM/200 ML BAG IVPB SCH (11:14)
--- NOTE | 2018-07-03 13:23 | CP.PCM.PN ---
Subjective - Date & Time of Evaluation Date of Evaluation: 07/03/18 Time of Evaluation: 08:00 - Subjective Subjective: Medicine Progress Note for Dr. Miranda Patient was seen at bedside in the AM. No acute events overnight. Vascular surgery is planning on doing a fem-pop bypass on 07/04/18. The patient has no complaints today and denies all symptoms. Objective - Vital Signs/Intake and Output Vital Signs (last 24 hours): Temp Pulse Resp BP Pulse Ox 97.9 F 61 20 139/69 99 07/03/18 08:16 07/03/18 08:16 07/03/18 08:16 07/03/18 08:16 07/03/18 08:16 Intake and Output: 07/03/18 07/03/18 06:59 18:59 Intake Total 200 340 Balance 200 340 - Medications Medications: Current Medications Amlodipine Besylate (Norvasc) 10 mg PO DAILY [facility] Last Admin: 07/03/18 10:22 Dose: 10 mg Apixaban (Eliquis) 2.5 mg PO BID [facility] Last Admin: 07/01/18 09:17 Dose: 2.5 mg Clopidogrel Bisulfate (Plavix) 75 mg PO DAILY [facility] Last Admin: 07/01/18 09:17 Dose: 75 mg Dextrose (Dextrose 50% Inj) 0 ml IV STAT PRN; Protocol PRN Reason: Hypoglycemia Protocol Dextrose (Glutose 15) 0 gm PO ONCE PRN; Protocol PRN Reason: Hypoglycemia Protocol Donepezil HCl (Aricept) 5 mg PO DAILY [facility] Last Admin: 07/03/18 10:22 Dose: 5 mg Gabapentin (Neurontin) 400 mg PO BID [facility] Last Admin: 07/03/18 10:21 Dose: 400 mg Glucagon (Glucagen Diagnostic Kit) 0 mg IM STAT PRN; Protocol PRN Reason: Hypoglycemia Protocol Piperacillin Sod/Tazobactam (Sod 3.375 gm/ Sodium Chloride) 100 mls @ 200 ml s/hr IVPB Q8H [facility]; Protocol Last Admin: 07/03/18 10:22 Dose: 200 mls/hr Insulin Aspart (Novolog) 0 unit SC ACHS [facility]; Protocol Last Admin: 07/03/18 12:13 Dose: 1 units Insulin Detemir (Levemir) 15 unit SC QPM [facility] Last Admin: 07/02/18 18:00 Dose: Not Given Insulin Human Regular (Novolin R) 4 unit SC AC [facility] Last Admin: 07/03/18 12:14 Dose: 4 units Losartan Potassium (Cozaar) 100 mg PO DAILY [facility] Last Admin: 07/03/18 10:21 Dose: 100 mg Nystatin (Nystop Topical Powder) 2 gm TOP TID [facility] Last Admin: 07/03/18 10:22 Dose: 1 applic Rosuvastatin Calcium (Crestor) 10 mg PO HS [facility] Last Admin: 07/02/18 21:46 Dose: 10 mg Saccharomyces Boulardii (Florastor) 250 mg PO BID [facility] Last Admin: 07/03/18 10:21 Dose: 250 mg - Labs Labs: 07/03/18 07:05 07/03/18 07:05 PT 12.7 SECONDS (9.7-12.2) H 07/02/18 07:14 INR 1.2 07/02/18 07:14 APTT 35 SECONDS (21-34) H 07/02/18 07:14 - Constitutional Appears: No Acute Distress - Head Exam Head Exam: ATRAUMATIC, NORMAL INSPECTION - ENT Exam ENT Exam: Mucous Membranes Moist - Respiratory Exam Respiratory Exam: Clear to Ausculation Bilateral, NORMAL BREATHING PATTERN - Cardiovascular Exam Cardiovascular Exam: REGULAR RHYTHM, +S1, +S2 - GI/Abdominal Exam GI & Abdominal Exam: Soft, Normal Bowel Sounds. absent: Tenderness - Neurological Exam Neurological Exam: Awake - Psychiatric Exam Psychiatric exam: Normal Affect - Skin Skin Exam: Warm Assessment and Plan - Assessment and Plan (Free Text) Assessment: 73 year old female admitted 06/22/18 for non healing right heel wound with osteomyelitis. R Heel Wound; osteomyelitis - Afebrile, absent leukocytosis - ID Consult: Dr. Dominguez --> help appreciated - Vascular Consult: Dr. Mcdonald --> help appreciated - Podiatry Consult: Dr. Smart --> help appreciated - per podiatry no surgical intervention at this time - Images: * Right Foot Xray: Soft tissue ulceration seen overlying the posterior calcaneus. No evidence of gross cortical irregularity at the level of the calcaneus to suggest an acute osteomyelitis. If there is concern for acute osteomyelitis, consider correlation with MRI. Diffuse osteopenia. Dorsal soft tissue swelling at the level of the midfoot Hallux valgus deformity. * Lower Extremity US: Negative * Lower Extremity MRI: Prominent soft tissue ulceration/defect seen within the medial subcutaneous soft tissues at the level of the posterior heel. Reticulation and edema within the adjacent soft tissues. At that level, within the medial cortex of the posterior calcaneus, there is some mild increased STIR signal without gross corresponding decreased T1 signal as demonstrated on series 5, images 16-18 as well as series 7 images 5-8. These changes likely do not represent a gross acute osteomyelitis; however, an early acute and or developing acute osteomyelitis cannot entirely be excluded. Continued interval follow-up and or correlation with three-phase bone scan may be helpful if indicated. - Blood cultures: negative - Wound culture: Staph Aureus - Medications: * Zosyn 3.375 Q6H (started on 06/28/18), Vanco 06/28, patient will need 6-8 week course of IV abx. to end 08/07/18 * Florastor 250mg bid History of HTN - ECHO (10/19/17): EF 59%; the left ventricle is normal in size; normal left ventricular wall thickness; left ventricle function is normal; normal LV segmental wall motion - Chest Xray: Satisfactory position of recently placed PICC line. No pneumothorax. Atelectasis at the lung bases particularly on the right. - EKG: NS @70bpm - Medications: * Amlodipine 10mg daily * Losartan 100mg po daily History of PAD - Extremity Venous Study: Right: Diameter measurements of the right greater saphenous vein are measured between 0.32 cm and 0.64 cm and lesser saphenous v ein is measured between 0.28 cm and 0.42 cm. Left: Diameter measurements of the left lesser saphenous vein is measured between 0.22 cm and 0.55 cm. The left greater saphenous vein has been previously removed. - Abdominal Angiography: There is poor opacification of right and left lower extremities which limits their evaluation. Please see full report. - Vascular Consult: Dr. Mcdonald --> help appreciated - Plan for right lower extremity bypass 07/04/18 - Pending cardiac clearance - Cardiology Consult: Dr. Stroud --> help appreciated - Stress test Sunday06/28/18: normal EF, no stress induced ischemia noted - Moderate cardiac risk for right lower extremity bypass under general anaesthesia - Medications - medications will need to be help prior to surgical procedure * Eliquis 2.5mg BID-->held 07/03 for surgery 07/04 * Plavix 75mg daily-->held 07/03 for surgery 07/04 History of CAD - Lipid panel: Total cholesterol 209; LDL 99; HDL 16; Triglycerides 209 - Medications - medications will need to be help prior to surgical procedure * Eliquis 2.5mg BID held 07/03 for surgery 07/04 * Plavix 75mg daily held 07/03 for surgery 07/04 * Crestor 10mg HS History of Diabetes type II - hA1c: 8.1 - Hypoglycemia Protocol - Accuchecks - Medications: * Levemir 15units SC QPM * Novolin R 4 units SC AC * Novolog * Losartan 100mg po daily History of Neuropathy - Gabapentin 400mg bid History of Dementia - Donepizil 5mg daily PT is recommending [facility]; will talk with case management for placement Dipso: pending bypass surgery the patient is cleared to go to [facility] with the following The patient is stable for d/c to [facility] as per Dr. Miranda with the following medicines The patient needs to continue the followin) f/u with podiatry in [facility]/wound dressing changes 2) Amlodipine 10mg daily, Losartan 100mg daily 3) Rosuvastatin 10mg HS, Plavix 75mg Daily, Eliquis 2.5mg BID 4) Donepazil 5mg daily 5) Zosyn 3.375mg Q8H and Vancomycin 1g daily ending on 08/14/18 for osteomyelitis 6)Insulin detemir 10 units SC before meals; RISS coverage
--- NOTE | 2018-07-03 16:31 | CP.PCM.PN ---
<Sanna Salazar - Last Filed: 07/03/18 16:30> Subjective - Date & Time of Evaluation Date of Evaluation: 07/03/18 Time of Evaluation: 16:30 - Subjective Subjective: Cardiology Follow Up Note Patient was seen and examined at bedside. Patient denied any chest pain, shortness of breath, or palpitations. Objective - Vital Signs/Intake and Output Vital Signs (last 24 hours): Temp Pulse Resp BP Pulse Ox 97.9 F 61 20 139/69 99 07/03/18 08:16 07/03/18 08:16 07/03/18 08:16 07/03/18 08:16 07/03/18 08:16 Intake and Output: 07/03/18 07/03/18 06:59 18:59 Intake Total 200 1000 Balance 200 1000 - Medications Medications: Current Medications Amlodipine Besylate (Norvasc) 10 mg PO DAILY [facility] Last Admin: 07/03/18 10:22 Dose: 10 mg Apixaban (Eliquis) 2.5 mg PO BID [facility] Last Admin: 07/01/18 09:17 Dose: 2.5 mg Clopidogrel Bisulfate (Plavix) 75 mg PO DAILY [facility] Last Admin: 07/01/18 09:17 Dose: 75 mg Dextrose (Dextrose 50% Inj) 0 ml IV STAT PRN; Protocol PRN Reason: Hypoglycemia Protocol Dextrose (Glutose 15) 0 gm PO ONCE PRN; Protocol PRN Reason: Hypoglycemia Protocol Donepezil HCl (Aricept) 5 mg PO DAILY [facility] Last Admin: 07/03/18 10:22 Dose: 5 mg Gabapentin (Neurontin) 400 mg PO BID [facility] Last Admin: 07/03/18 10:21 Dose: 400 mg Glucagon (Glucagen Diagnostic Kit) 0 mg IM STAT PRN; Protocol PRN Reason: Hypoglycemia Protocol Piperacillin Sod/Tazobactam (Sod 3.375 gm/ Sodium Chloride) 100 mls @ 200 mls/hr IVPB Q8H [facility]; Protocol Last Admin: 07/03/18 10:22 Dose: 200 mls/hr Insulin Aspart (Novolog) 0 unit SC ACHS [facility]; Protocol Last Admin: 07/03/18 12:13 Dose: 1 units Insulin Detemir (Levemir) 15 unit SC QPM [facility] Last Admin: 07/02/18 18:00 Dose: Not Given Insulin Human Regular (Novolin R) 4 unit SC AC [facility] Last Admin: 07/03/18 12:14 Dose: 4 units Losartan Potassium (Cozaar) 100 mg PO DAILY [facility] Last Admin: 07/03/18 10:21 Dose: 100 mg Nystatin (Nystop Topical Powder) 2 gm TOP TID [facility] Last Admin: 07/03/18 13:39 Dose: 1 applic Rosuvastatin Calcium (Crestor) 10 mg PO HS [facility] Last Admin: 07/02/18 21:46 Dose: 10 mg Saccharomyces Boulardii (Florastor) 250 mg PO BID [facility] Last Admin: 07/03/18 10:21 Dose: 250 mg - Labs Labs: 07/03/18 07:05 07/03/18 07:05 PT 12.7 SECONDS (9.7-12.2) H 07/02/18 07:14 INR 1.2 07/02/18 07:14 APTT 35 SECONDS (21-34) H 07/02/18 07:14 - Additional Findings Additional findings: - Constitutional Appears: No Acute Distress - Head Exam Head Exam: NORMAL INSPECTION, NORMOCEPHALIC - Eye Exam Eye Exam: Normal appearance - ENT Exam ENT Exam: Mucous Membranes Moist - Respiratory Exam Respiratory Exam: Clear to Ausculation Bilateral, NORMAL BREATHING PATTERN. absent: Decreased Breath Sounds, Prolonged Expiratory Phase - Cardiovascular Exam Cardiovascular Exam: +S1, +S2 - GI/Abdominal Exam GI & Abdominal Exam: Soft, Normal Bowel Sounds. absent: Distended, Tenderness - Extremities Exam Extremities Exam: Normal Inspection. absent: Pedal Edema, Tenderness - Neurological Exam Neurological Exam: Alert, Awake, Oriented x3 - Psychiatric Exam Psychiatric exam: Normal Affect, Normal Mood - Skin Skin Exam: Dry, Intact, Normal Color, Warm Assessment and Plan - Assessment and Plan (Free Text) Plan: Peripheral Vascular Disease Comorbidities: Hypertension, Uncontrolled Type 2 DM, CAD with CABG Imaging: - EKG: NSR 67 BPM; unchanged from prior - ECHO 10/2017: normal LVEF - S/P Stress Test: normal EF, no stress induced ischemia noted Management: - This patient assessed as moderate cardiac risk for right lower extremity bypass under general anaesthesia - Patient for Vascular Bypass Case discussed with Sanna Velasquez DO, PGY2 <Humza Stroud - Last Filed: 07/03/18 20:23> Objective - Vital Signs/Intake and Output Vital Signs (last 24 hours): Temp Pulse Resp BP Pulse Ox 97.5 F L 63 20 125/70 99 07/03/18 15:00 07/03/18 15:00 07/03/18 15:00 07/03/18 15:00 07/03/18 15:00 Intake and Output: 07/03/18 07/04/18 18:59 06:59 Intake Total 1000 Balance 1000 - Medications Medications: Current Medications Amlodipine Besylate (Norvasc) 10 mg PO DAILY [facility] Last Admin: 07/03/18 10:22 Dose: 10 mg Apixaban (Eliquis) 2.5 mg PO BID [facility] Last Admin: 07/01/18 09:17 Dose: 2.5 mg Clopidogrel Bisulfate (Plavix) 75 mg PO DAILY [facility] Last Admin: 07/01/18 09:17 Dose: 75 mg Dextrose (Dextrose 50% Inj) 0 ml IV STAT PRN; Protocol PRN Reason: Hypoglycemia Protocol Dextrose (Glutose 15) 0 gm PO ONCE PRN; Protocol PRN Reason: Hypoglycemia Protocol Donepezil HCl (Aricept) 5 mg PO DAILY [facility] Last Admin: 07/03/18 10:22 Dose: 5 mg Gabapentin (Neurontin) 400 mg PO BID [facility] Last Admin: 07/03/18 17:21 Dose: 400 mg Glucagon (Glucagen Diagnostic Kit) 0 mg IM STAT PRN; Protocol PRN Reason: Hypoglycemia Protocol Piperacillin Sod/Tazobactam (Sod 3.375 gm/ Sodium Chloride) 100 mls @ 200 mls/hr IVPB Q8H [facility]; Protocol Last Admin: 07/03/18 17:19 Dose: 200 mls/hr Insulin Aspart (Novolog) 0 unit SC ACHS [facility]; Protocol Last Admin: 07/03/18 17:18 Dose: 1 units Insulin Detemir (Levemir) 15 unit SC QPM [facility] Last Admin: 07/03/18 17:20 Dose: 15 u Insulin Human Regular (Novolin R) 4 unit SC AC [facility] Last Admin: 07/03/18 17:19 Dose: 4 units Losartan Potassium (Cozaar) 100 mg PO DAILY [facility] Last Admin: 07/03/18 10:21 Dose: 100 mg Nystatin (Nystop Topical Powder) 2 gm TOP TID [facility] Last Admin: 07/03/18 17:18 Dose: 1 applic Rosuvastatin Calcium (Crestor) 10 mg PO HS [facility] Last Admin: 07/02/18 21:46 Dose: 10 mg Saccharomyces Boulardii (Florastor) 250 mg PO BID [facility] Last Admin: 07/03/18 17:21 Dose: 250 mg - Labs Labs: 07/03/18 07:05 07/03/18 07:05 PT 12.7 SECONDS (9.7-12.2) H 07/02/18 07:14 INR 1.2 07/02/18 07:14 APTT 35 SECONDS (21-34) H 07/02/18 07:14 Assessment and Plan - Assessment and Plan (Free Text) Plan: Patient seen and evaluated personally by me Plan of care d/w the resident and as documented
--- NOTE | 2018-07-03 17:15 | CP.PCM.PN ---
Subjective - Date & Time of Evaluation Date of Evaluation: 07/03/18 Time of Evaluation: 11:00 - Subjective Subjective: Vascular Surgery: Dr. Mcdonald Pt seen and examined. No acute overnight events. Pt denies any complaints at this time. Denies fevers/chills. Objective - Vital Signs/Intake and Output Vital Signs (last 24 hours): Temp Pulse Resp BP Pulse Ox 97.5 F L 63 20 125/70 99 07/03/18 15:00 07/03/18 15:00 07/03/18 15:00 07/03/18 15:00 07/03/18 15:00 Intake and Output: 07/03/18 07/03/18 06:59 18:59 Intake Total 200 1000 Balance 200 1000 - Medications Medications: Current Medications Amlodipine Besylate (Norvasc) 10 mg PO DAILY [facility] Last Admin: 07/03/18 10:22 Dose: 10 mg Apixaban (Eliquis) 2.5 mg PO BID [facility] Last Admin: 07/01/18 09:17 Dose: 2.5 mg Clopidogrel Bisulfate (Plavix) 75 mg PO DAILY [facility] Last Admin: 07/01/18 09:17 Dose: 75 mg Dextrose (Dextrose 50% Inj) 0 ml IV STAT PRN; Protocol PRN Reason: Hypoglycemia Protocol Dextrose (Glutose 15) 0 gm PO ONCE PRN; Protocol PRN Reason: Hypoglycemia Protocol Donepezil HCl (Aricept) 5 mg PO DAILY [facility] Last Admin: 07/03/18 10:22 Dose: 5 mg Gabapentin (Neurontin) 400 mg PO BID [facility] Last Admin: 07/03/18 10:21 Dose: 400 mg Glucagon (Glucagen Diagnostic Kit) 0 mg IM STAT PRN; Protocol PRN Reason: Hypoglycemia Protocol Piperacillin Sod/Tazobactam (Sod 3.375 gm/ Sodium Chloride) 100 mls @ 200 mls/h r IVPB Q8H [facility]; Protocol Last Admin: 07/03/18 10:22 Dose: 200 mls/hr Insulin Aspart (Novolog) 0 unit SC ACHS [facility]; Protocol Last Admin: 07/03/18 12:13 Dose: 1 units Insulin Detemir (Levemir) 15 unit SC QPM [facility] Last Admin: 07/02/18 18:00 Dose: Not Given Insulin Human Regular (Novolin R) 4 unit SC AC [facility] Last Admin: 07/03/18 12:14 Dose: 4 units Losartan Potassium (Cozaar) 100 mg PO DAILY [facility] Last Admin: 07/03/18 10:21 Dose: 100 mg Nystatin (Nystop Topical Powder) 2 gm TOP TID [facility] Last Admin: 07/03/18 13:39 Dose: 1 applic Rosuvastatin Calcium (Crestor) 10 mg PO HS [facility] Last Admin: 07/02/18 21:46 Dose: 10 mg Saccharomyces Boulardii (Florastor) 250 mg PO BID [facility] Last Admin: 07/03/18 10:21 Dose: 250 mg - Labs Labs: 07/03/18 07:05 07/03/18 07:05 PT 12.7 SECONDS (9.7-12.2) H 07/02/18 07:14 INR 1.2 07/02/18 07:14 APTT 35 SECONDS (21-34) H 07/02/18 07:14 - Constitutional Appears: No Acute Distress - Head Exam Head Exam: ATRAUMATIC, NORMOCEPHALIC - Eye Exam Eye Exam: Normal appearance - ENT Exam ENT Exam: Mucous Membranes Moist - Respiratory Exam Respiratory Exam: NORMAL BREATHING PATTERN - Cardiovascular Exam Cardiovascular Exam: RRR - GI/Abdominal Exam GI & Abdominal Exam: Soft - Extremities Exam Additional comments: b/l LE warm, R foot with dressing C/D/I - Neurological Exam Neurological Exam: Alert, Awake - Skin Skin Exam: Dry, Warm Assessment and Plan - Assessment and Plan (Free Text) Assessment: 73F with PVD Plan: - plan for LE bypass tomorrow - keep NPO after midnight - d/w Dr. Harry Vizcaino
[2018-07-03] MEDS: Insulin Detemir 100 units/ml Vial (Levemir) SC SCH (17:20)
[2018-07-04] MEDS: Piperacillin/Tazobact 3.375 GM in Sodium Chloride 100 ML IVPB SCH ×2 (01:49→10:00)
[2018-07-04 02:02] VITALS: O2SAT 97
[2018-07-04 07:14] LABS: BASO # 0.1 K/uL (0.0-0.2); EOS # 0.3 K/uL (0.0-0.7); EOS % 3.9 % (0.0-4.0); HEMOGLOBIN 9.7 g/dL (11.0-16.0); LYMPH # 1.7 K/uL (1.0-4.3); LYMPH % 22.3 % (20.0-40.0); MEAN CORPUSCULAR HEMOGLOBIN 24.3 pg (27.0-31.0); MEAN CORPUSCULAR HGB CONC 31.9 g/dL (33.0-37.0); MEAN PLATELET VOLUME 8.5 fL (7.2-11.7); MONO % 12.7 % (0.0-10.0); NEUT # 4.6 K/uL (1.8-7.0); NEUT % 60.1 % (50.0-75.0); RBC 3.99 Mil/uL (3.80-5.20); RED CELL DISTRIBUTION WIDTH 14.5 % (11.5-14.5); WHITE BLOOD COUNT 7.7 K/uL (4.8-10.8)
[2018-07-04 07:25] LABS: INR 1.1; PROTHROMBIN TIME 11.9 SECONDS (9.7-12.2)
[2018-07-04 07:51] LABS: ALB/GLOB RATIO 0.9 (1.0-2.1); ALBUMIN 3.2 g/dL (3.5-5.0); ALT/SGPT 13 U/L (9-52); AST/SGOT 34 U/L (14-36); BLOOD UREA NITROGEN 11 mg/dL (7-17); CALCIUM 8.6 mg/dl (8.6-10.4); GFR NON-AFRICAN AMERICAN > 60
[2018-07-04 08:09] VITALS: BP 151/75; PULSE 67; TEMP 98.2
[2018-07-04] MEDS: (Novolog) Insulin Aspart, Recombinant 100 u/ml 10 ml vial SC SCH ×2 (08:30→12:16)
[2018-07-04] MEDS: (Novolin R) Insulin Human Regular 100 units/ml vial SC SCH ×2 (08:30→12:15)
--- NOTE | 2018-07-04 09:25 | CP.PCM.PN ---
Subjective - Date & Time of Evaluation Date of Evaluation: 07/04/18 Time of Evaluation: 08:00 - Subjective Subjective: Medicine Progress Note for Dr. Miranda Patient was seen at bedside in the AM. No acute events overnight. Family cancelled the fem-pop bypass procedure as they stated they would like to wait and have patient go to rehab. The patient has no complaints today and denies all symptoms. Objective - Vital Signs/Intake and Output Vital Signs (last 24 hours): Temp Pulse Resp BP Pulse Ox 98.2 F 67 20 151/75 H 97 07/04/18 08:07 07/04/18 08:07 07/04/18 08:07 07/04/18 08:07 07/04/18 08:07 Intake and Output: 07/04/18 07/04/18 06:59 18:59 Intake Total 340 Balance 340 - Medications Medications: Current Medications Amlodipine Besylate (Norvasc) 10 mg PO DAILY [facility] Last Admin: 07/03/18 10:22 Dose: 10 mg Apixaban (Eliquis) 2.5 mg PO BID [facility] Last Admin: 07/01/18 09:17 Dose: 2.5 mg Clopidogrel Bisulfate (Plavix) 75 mg PO DAILY [facility] Last Admin: 07/01/18 09:17 Dose: 75 mg Dextrose (Dextrose 50% Inj) 0 ml IV STAT PRN; Protocol PRN Reason: Hypoglycemia Protocol Dextrose (Glutose 15) 0 gm PO ONCE PRN; Protocol PRN Reason: Hypoglycemia Protocol Donepezil HCl (Aricept) 5 mg PO DAILY [facility] Last Admin: 07/03/18 10:22 Dose: 5 mg Gabapentin (Neurontin) 400 mg PO BID [facility] Last Admin: 07/03/18 17:21 Dose: 400 mg Glucagon (Glucagen Diagnostic Kit) 0 mg IM STAT PRN; Protocol PRN Reason: Hypoglycemia Protocol Piperacillin Sod/Tazobactam (Sod 3.375 gm/ Sodium Chloride) 100 mls @ 200 mls/hr IVPB Q8H [facility]; Protocol Last Admin: 07/04/18 01:49 Dose: 200 mls/hr Insulin Aspart (Novolog) 0 unit SC ACHS [facility]; Protocol Last Admin: 07/04/18 08:30 Dose: Not Given Insulin Detemir (Levemir) 15 unit SC QPM [facility] Last Admin: 11/28/18 17:20 Dose: 15 u Insulin Human Regular (Novolin R) 4 unit SC AC [facility] Last Admin: 07/04/18 08:30 Dose: Not Given Losartan Potassium (Cozaar) 100 mg PO DAILY [facility] Last Admin: 07/03/18 10:21 Dose: 100 mg Nystatin (Nystop Topical Powder) 2 gm TOP TID [facility] Last Admin: 07/03/18 17:18 Dose: 1 applic Potassium Chloride (K-Dur 20 Meq Er Tab) 20 meq PO ONCE ONE Stop: 07/04/18 09:26 Rosuvastatin Calcium (Crestor) 10 mg PO HS [facility] Last Admin: 07/03/18 21:24 Dose: 10 mg Saccharomyces Boulardii (Florastor) 250 mg PO BID [facility] Last Admin: 07/03/18 17:21 Dose: 250 mg - Labs Labs: 07/04/18 07:08 07/04/18 07:08 PT 11.9 SECONDS (9.7-12.2) 07/04/18 07:08 INR 1.1 07/04/18 07:08 APTT 35 SECONDS (21-34) H 07/04/18 07:08 - Constitutional Appears: No Acute Distress - Head Exam Head Exam: ATRAUMATIC, NORMAL INSPECTION - ENT Exam ENT Exam: Mucous Membranes Moist - Respiratory Exam Respiratory Exam: Clear to Ausculation Bilateral, NORMAL BREATHING PATTERN - Cardiovascular Exam Cardiovascular Exam: REGULAR RHYTHM, +S1, +S2 - GI/Abdominal Exam GI & Abdominal Exam: Soft, Normal Bowel Sounds. absent: Tenderness - Neurological Exam Neurological Exam: Awake - Psychiatric Exam Psychiatric exam: Normal Affect - Skin Skin Exam: Warm Assessment and Plan - Assessment and Plan (Free Text) Assessment: 73 year old female admitted 06/22/18 for non healing right heel wound with osteomyelitis. R Heel Wound; osteomyelitis - Afebrile, absent leukocytosis - ID Consult: Dr. Dominguez --> help appreciated - Vascular Consult: Dr. Mcdonald --> help appreciated - Podiatry Consult: Dr. Smart --> help appreciated - per podiatry no surgical intervention at this time - Images: * Right Foot Xray: Soft tissue ulceration seen overlying the posterior calc aneus. No evidence of gross cortical irregularity at the level of the calcaneus to suggest an acute osteomyelitis. If there is concern for acute osteomyelitis, consider correlation with MRI. Diffuse osteopenia. Dorsal soft tissue swelling at the level of the midfoot Hallux valgus deformity. * Lower Extremity US: Negative * Lower Extremity MRI: Prominent soft tissue ulceration/defect seen within the medial subcutaneous soft tissues at the level of the posterior heel. Reticulation and edema within the adjacent soft tissues. At that level, within the medial cortex of the posterior calcaneus, there is some mild increased STIR signal without gross corresponding decreased T1 signal as demonstrated on series 5, images 16-18 as well as series 7 images 5-8. These changes likely do not represent a gross acute osteomyelitis; however, an early acute and or developing acute osteomyelitis cannot entirely be excluded. Continued interval follow-up and or correlation with three-phase bone scan may be helpful if indicated. - Blood cultures: negative - Wound culture: Staph Aureus - Medications: * Zosyn 3.375 Q6H (started on 06/28/18), Vanco 06/28, patient will need 6-8 week course of IV abx. to end 08/07/18 * Florastor 250mg bid History of HTN - ECHO (10/19/17): EF 59%; the left ventricle is normal in size; normal left ventricular wall thickness; left ventricle function is normal; normal LV segmental wall motion - Chest Xray: Satisfactory position of recently placed PICC line. No pneumothorax. Atelectasis at the lung bases particularly on the right. - EKG: NS @70bpm - Medications: * Amlodipine 10mg daily * Losartan 100mg po daily History of PAD - Extremity Venous Study: Right: Diameter measurements of the right greater saphenous vein are measured between 0.32 cm and 0.64 cm and lesser saphenous vein is measured between 0.28 cm and 0.42 cm. Left: Diameter measurements of the left lesser saphenous vein is measured between 0.22 cm and 0.55 cm. The left greater saphenous vein has been previously removed. - Abdominal Angiography: There is poor opacification of right and left lower extremities which limits their evaluation. Please see full report. - Vascular Consult: Dr. Mcdonald --> help appreciated - right lower extremity bypass cancelled as per family - Pending cardiac clearance - Cardiology Consult: Dr. Stroud --> help appreciated - Stress test Sunday06/28/18: normal EF, no stress induced ischemia noted - Moderate cardiac risk for right lower extremity bypass under general anaesthesia - Medications - medications will need to be help prior to surgical procedure * Eliquis 2.5mg BID-->held 07/03 for surgery 07/04 * Plavix 75mg daily-->held 07/03 for surgery 07/04 History of CAD - Lipid panel: Total cholesterol 209; LDL 99; HDL 16; Triglycerides 209 - Medications - medications will need to be help prior to surgical procedure * Eliquis 2.5mg BID held 07/03 for surgery 07/04 * Plavix 75mg daily held 07/03 for surgery 07/04 * Crestor 10mg HS History of Diabetes type II - hA1c: 8.1 - Hypoglycemia Protocol - Accuchecks - Medications: * Levemir 15units SC QPM * Novolin R 4 units SC AC * Novolog * Losartan 100mg po daily History of Neuropathy - Gabapentin 400mg bid History of Dementia - Donepizil 5mg daily Dipso: Family cancelled bypass surgery as they would like to wait and have patient go to [facility]. The patient is stable for d/c to [facility] as per Dr. Miranda with the following medicines The patient needs to continue the followin) f/u with podiatry in [facility]/wound dressing changes 2) Amlodipine 10mg daily, Losartan 100mg daily 3) Rosuvastatin 10mg HS, Plavix 75mg Daily, Eliquis 2.5mg BID 4) Donepazil 5mg daily 5) Zosyn 3.375mg Q8H and Vancomycin 1g daily ending on 08/14/18 for osteomyelitis 6)Insulin detemir 10 units SC before meals; RISS coverage
[2018-07-04] MEDS ORDERED: Potassium Chloride 20 mEq ER Tab PO ONE (09:30)
[2018-07-04] MEDS: Saccharomyces Boulardi 250 mg Cap PO SCH (09:47)
[2018-07-04] MEDS: Nystatin 100,000 Units/gm Topical Pow(15 gm) TOP SCH ×2 (09:48→14:49)
--- NOTE | 2018-07-04 12:32 | VASCLAB ---
Date of service: 07/02/2018 PROCEDURE: Right Lower Extremity Arterial Exam. HISTORY: Determine right popliteal patency COMPARISON: None available. TECHNIQUE: Grayscale and duplex Doppler evaluation of the right common femoral, femoral, profunda femoral, popliteal, posterior tibial, anterior tibial and dorsalis pedis arteries was performed. Report prepared by AYAN Yee, RVT FINDINGS: RIGHT LOWER EXTREMITY: * Common Femoral Artery: Peak Systolic Velocity - 163: Doppler Waveform: Biphasic: Plaque description - Calcific * Profunda Femoral Artery: Peak Systolic Velocity - 115: Doppler Waveform: Biphasic.: Plaque description - Calcific * Femoral Artery o Proximal Segment: Peak Systolic Velocity - 0: Doppler Waveform: Absent: Plaque description - Calcific o Middle Segment: Peak Systolic Velocity - 0: Doppler Waveform: Absent: Plaque description - Calcific o Distal Segment: Peak Systolic Velocity - 0: Doppler Waveform: Absent: Plaque description - Calcific * Popliteal Artery o Proximal Segment: Peak Systolic Velocity - 0: Doppler Waveform: Absent: Plaque description - Calcific o Middle Segment: Peak Systolic Velocity - 26: Doppler Waveform: Monophasic: Plaque description - Calcific o Distal Segment: Peak Systolic Velocity - 30: Doppler Waveform: Monophasic: Plaque description - Calcific * Posterior Tibial Artery: Peak Systolic Velocity - 0: Doppler Waveform: Absent: Plaque description - Calcific * Anterior Tibial Artery: Peak Systolic Velocity - 40: Doppler Waveform: Monophasic: Plaque description - Calcific * Dorsalis Pedis Artery: Peak Systolic Velocity - : Doppler Waveform: : Plaque description - OTHER FINDINGS: None. IMPRESSION: RIGHT: Occlusion of the right proximal to distal superficial femoral, proximal popliteal and distal posterior tibial arteries. 30-49% stenosis of the right common femoral artery.
--- NOTE | 2018-07-04 13:43 | CP.PCM.PN ---
Subjective - Date & Time of Evaluation Date of Evaluation: 07/04/18 Time of Evaluation: 13:42 - Subjective Subjective: Podiatry Progress Note: Dr. Smart 73 year old female seen and evaluated for right foot heel wound and left heel callous. SPatient is AAOx3 at time of visit. Continues to have pain to her right heel. Denies any further pedal complaints at this time. Denies any recent N/V/CP/SOB/D. Objective - Vital Signs/Intake and Output Vital Signs (last 24 hours): Temp Pulse Resp BP Pulse Ox 98.2 F 67 20 151/75 H 97 07/04/18 08:07 07/04/18 08:07 07/04/18 08:07 07/04/18 08:07 07/04/18 08:07 Intake and Output: 07/04/18 07/04/18 06:59 18:59 Intake Total 340 Balance 340 - Medications Medications: Current Medications Amlodipine Besylate (Norvasc) 10 mg PO DAILY [facility] Last Admin: 07/04/18 09:48 Dose: 10 mg Apixaban (Eliquis) 2.5 mg PO BID [facility] Last Admin: 07/04/18 09:47 Dose: 2.5 mg Clopidogrel Bisulfate (Plavix) 75 mg PO DAILY [facility] Last Admin: 07/04/18 09:47 Dose: 75 mg Dextrose (Dextrose 50% Inj) 0 ml IV STAT PRN; Protocol PRN Reason: Hypoglycemia Protocol Dextrose (Glutose 15) 0 gm PO ONCE PRN; Protocol PRN Reason: Hypoglycemia Protocol Donepezil HCl (Aricept) 5 mg PO DAILY [facility] Last Admin: 07/04/18 09:47 Dose: 5 mg Gabapentin (Neurontin) 400 mg PO BID [facility] Last Admin: 07/04/18 09:48 Dose: 400 mg Glucagon (Glucagen Diagnostic Kit) 0 mg IM STAT PRN; Protocol PRN Reason: Hypoglycemia Protocol Piperacillin Sod/Tazobactam (Sod 3.375 gm/ Sodium Chloride) 100 mls @ 200 mls/hr IVPB Q8H [facility]; Protocol Last Admin: 07/04/18 01:49 Dose: 200 mls/hr Insulin Aspart (Novolog) 0 unit SC ACHS [facility]; Protocol Last Admin: 07/04/18 12:16 Dose: 1 units Insulin Detemir (Levemir) 15 unit SC QPM [facility] Last Admin: 07/03/18 17:20 Dose: 15 u Insulin Human Regular (Novolin R) 4 unit SC AC [facility] Last Admin: 07/04/18 12:15 Dose: 4 units Losartan Potassium (Cozaar) 100 mg PO DAILY [facility] Last Admin: 07/04/18 09:47 Dose: 100 mg Nystatin (Nystop Topical Powder) 2 gm TOP TID [facility] Last Admin: 07/04/18 09:48 Dose: 1 applic Rosuvastatin Calcium (Crestor) 10 mg PO HS [facility] Last Admin: 07/03/18 21:24 Dose: 10 mg Saccharomyces Boulardii (Florastor) 250 mg PO BID [facility] Last Admin: 07/04/18 09:47 Dose: 250 mg - Labs Labs: 07/04/18 07:08 07/04/18 07:08 PT 11.9 SECONDS (9.7-12.2) 07/04/18 07:08 INR 1.1 07/04/18 07:08 APTT 35 SECONDS (21-34) H 07/04/18 07:08 - Constitutional Appears: Well, Non-toxic, No Acute Distress - Extremities Exam Additional comments: Dressing clean, dry and intact. Multipodus boots on. RLE focused exam: VASC: DP and PT non-palpable to the right lower extremity, CFT < 3 seconds to all digits. TG cool to cool R > L, with minimal edema noted to dorsum of both feet DERM: xerosis noted to bilateral feet Left- small area of pre-ulcerative lesion noted to the plantar aspect of the left heel, no drainage, no probe to bone, no tunneling, no malodor Right- No blistering or purulence appreciated today. Heel wound with fibronecrotic base and an eschar and no probe to bone, tracking, tunneling or undermining noted. NEURO: Epicritic and protective sensation grossly intact b/l ORTHO: significant pain on palpation to the right heel - Neurological Exam Neurological Exam: Alert, Awake, Oriented x3 - Psychiatric Exam Psychiatric exam: Normal Affect, Normal Mood Assessment and Plan - Assessment and Plan (Free Text) Assessment: 73 year old female evaluated for right foot heel wound and left heel callous Plan: Patient seen and evaluated with Dr. Smart Afebrile, absent leukocytosis Wound cx: Staph Aureus Continue IV abx per ID R foot xray:Soft tissue ulceration seen overlying the posterior calcaneus. No evidence of gross cortical irregularity at the level of the calcaneus to suggest an acute osteomyelitis. If there is concern for acute osteomyelitis, consider correlation with MRI. LE MRI: Prominent soft tissue ulceration/defect seen within the medial subcutaneous soft tissues at the level of the posterior heel. Reticulation and edema within the adjacent soft tissues. At that level, within the medial cortex of the posterior calcaneus, there is some mild increased STIR signal without gross corresponding decreased T1 signal as demonstrated on series 5, images 16- 18 as well as series 7 images 5-8. These changes likely do not represent a gross acute osteomyelitis; however, an early acute and or developing acute osteomyelitis cannot entirely be excluded. Continued interval follow-up and or correlation with three-phase bone scan may be helpful if indicated. Triple phase bone scan: Positive for acute osseous process to right calcaneus Dressing clean, dry and intact - new dressing applied using xeroform, betadine, DSD No plan for surgical intervention at this time, per Dr. Smart treat with residential IV abx Stable for discharge from podiatry point of view; patient will follow up with Dr. Smart within a week of discharge Continue offloading boots while in-house Podiatry will continue to follow while patient in house
--- NOTE | 2018-07-09 08:20 | DS ---
The patient admitted to the hospital with chief complaint of infected wound ____ cellulitis, peripheral vascular disease. The patient placed on bed rest, supportive care, IV antibiotics. Podiatry consult, vascular consult. Vascular advised surgery but the patient refused. Patient IV antibiotics and supportive care and we will continue treatment. Parish Miranda MD
== END 2018-07-04 16:45 | DRG 638 ==
LOC: C.ER 17:16 → C.9E 20:23 → C.3T 20:42
PROVIDERS: ADMIT Internal Medicine Pulmonary Disease; ATTEND Internal Medicine Pulmonary Disease
DX: E11.621 Type 2 diabetes mellitus with foot ulcer (principal); M86.171 Other acute osteomyelitis, right ankle and foot; L97.418 Non-pressure chronic ulcer of right heel and midfoot with other specified severity; L97.518 Non-pressure chronic ulcer of other part of right foot with other specified severity; L03.115 Cellulitis of right lower limb; E11.69 Type 2 diabetes mellitus with other specified complication; E11.51 Type 2 diabetes mellitus with diabetic peripheral angiopathy without gangrene; E78.5 Hyperlipidemia, unspecified; E11.622 Type 2 diabetes mellitus with other skin ulcer; I10 Essential (primary) hypertension; I25.10 Atherosclerotic heart disease of native coronary artery without angina pectoris; I65.22 Occlusion and stenosis of left carotid artery; I70.201 Unspecified atherosclerosis of native arteries of extremities, right leg; E78.00 Pure hypercholesterolemia, unspecified; F03.90 Unspecified dementia, unspecified severity, without behavioral disturbance, psychotic disturbance, mood disturbance, and anxiety; L84 Corns and callosities; B95.61 Methicillin susceptible Staphylococcus aureus infection as the cause of diseases classified elsewhere; M20.11 Hallux valgus (acquired), right foot; M85.80 Other specified disorders of bone density and structure, unspecified site; H54.8 Legal blindness, as defined in USA; Z53.29 Procedure and treatment not carried out because of patient's decision for other reasons; Z95.828 Presence of other vascular implants and grafts; Z86.73 Personal history of transient ischemic attack (TIA), and cerebral infarction without residual deficits; Z95.1 Presence of aortocoronary bypass graft; Z87.01 Personal history of pneumonia (recurrent); Z79.02 Long term (current) use of antithrombotics/antiplatelets; Z74.01 Bed confinement status